=== PATIENT | male | born 1955 ===

== ENCOUNTER 2016-09-25 12:48 | Inpatient (IN) | payer MEDICAID, OTHER ==
[2016-09-25] MEDS ORDERED: Nitroglycerin 2% Ointment Foilpak UD TOP STA (12:57)
--- NOTE | 2016-09-25 13:04 | ED PDOC ---
Arrival/HPI - General Time Seen by Provider: 09/25/16 12:49 - History of Present Illness Narrative History of Present Illness (Text): 09/25/16 12:58 61yo male, states he has a hx of HTN but does not take any meds, presents with 2 week duration worsening sob and astudillo, states also feels intermittent palpitations. Denies cough. Denies f/c. States his symptoms accomp by generalized swelling. His reports pt appears very pale. Pt denies rectal bleeding or dark stool. States he drinks socially. Past Medical History - Provider Review Nursing Documentation Reviewed: Yes Family/Social History Family/Social History: Unknown Family HX Allergies/Home Meds Allergies/Adverse Reactions: Allergies No Known Allergies Allergy (Verified 09/25/16 12:54) Home Medications: Home Meds Medication Instructions Recorded Confirmed No Known Home Med 09/25/16 09/25/16 Physical Exam - Physical Exam Narrative Physical Exam (Text): 09/25/16 13:01 - Review of Systems Constitutional: Normal. absent: Fatigue, Weight Change, Fevers Eyes: Normal ENT: denies sore throat, denies tristhmus Respiratory: ASTUDILLO absent: Cough, Sputum Cardiovascular: anasarca, palpitations absent: Chest Pain, Syncope Gastrointestinal: Normal. absent: Abdominal Pain, Diarrhea, Nausea, Vomiting Genitourinary: Normal. absent: Dysuria, Frequency, Hematuria Musculoskeletal: Normal. absent: Arthralgias, Back Pain, Neck Pain Skin: pale appearance no rashes, no erythema Neurological: absent: Focal Weakness Endocrine: Normal Hemo/Lymphatic: Normal Psychiatric: No suicidal or homicidal ideations Physical exam Patient appears age appropriate in no distress, speaking full sentences without difficulty - Systems Exam Head: Present: Atraumatic, Normocephalic Pupils: Present: PERRL Extroacular Muscles: Present: EOMI Conjunctiva: Present: Normal Mouth: Present: Moist Mucous Membranes Neck: Present: Normal Range of Motion. No: MIDLINE TENDERNESS, Paraspinal Tenderness Respiratory/Chest: Present: Clear to Auscultation, Good Air Exchange. No: Respiratory Distress, Accessory Muscle Use, Tachypneic Cardiovascular: Present: pitting edema, tachycardic, murmur, Normal S1, S2, Peripheal Pulses Present. Abdomen: Present: Normal Bowel Sounds. No: Tenderness, Distention, Peritoneal Signs, Rebound, Guarding Rectal: Good rectal tone. External hemorrhoids. Guaiac positive. Female housing coordinator (Scribe - Viveros) present. Back: Present: Normal Inspection. No: Midline Tenderness, Paraspinal Tenderness Upper Extremity: Present: Normal Inspection. No: Cyanosis, Edema Lower Extremity: Present: edematous Neurological: Present: GCS=15, Speech Normal, cranial nerves II through XII fully intact with no cerebellar abnormality, neurosensory fully intact. No focal neurological deficits. Skin: Present: Warm, Dry, pale. No: Rashes Lymphatic: Present: OX3, NI, NC Psychiatric: Present: Alert, Oriented x 3, Normal Insight, Normal Concentration Vital Signs Pulse Resp BP Pulse Ox 09/25/16 13:52 172/91 H 09/25/16 13:35 83 18 179/98 H 100 09/25/16 13:09 91 H 17 178/99 H 100 09/25/16 13:03 224/113 H Blood Pressure: Hypertensive Pulse: Tachycardic Respiratory Rate: Normal Pain Distress: None Mental Status: Positive for: Alert and Oriented X 3 Medical Decision Making ED Course and Treatment: 09/25/16 13:04 61yo male, hx of HTN not on any meds, with 2 weeks duration worsening ASTUDILLO and palpitations. On exam pt is pale, tachy, edematous. In no resp distress. EKG shows sinus tach 111 bpm, PVC, lateral ST-depressions. Interpreted by me. differential includes but not limited to: anemia, CHF, demand ischemia, PNA BP in the 200s lasix and ntg ordered asa held due to possibility of anemia, will wait for Hb 09/25/16 14:13 Hb 4 consent for PRBCs signed pt aware of plan dw Dr. Calabrese, states will evaluate pt CXR shows mild vasc. congestion as read by the radiologist 09/25/16 14:24 stool guaiac positive, chaperoned by Dimple scribe. Good rectal tone. External non-tender hemorrhoids. 09/25/16 14:[address] Calabrese, accepted to the MICU pt states he has no PMD will admit to hospitalist service - Critical Care Critical Care Minutes: 30 minutes - Lab Interpretations Lab Results: 09/25/16 12:58 09/25/16 12:58 Lab Results 09/25/16 13:50: Urine Color Yellow, Urine Appearance Cloudy, Urine pH 6.0, Ur Specific [place] 1.015, Urine Protein Trace H, Urine Glucose (UA) Negative, Urine Ketones Negative, Urine Blood Negative, Urine Nitrate Positive H, Urine Bilirubin Negative, Urine Urobilinogen 0.2, Ur Leukocyte Esterase Small H, Urine RBC 0 - 2, Urine WBC 2 - 5, Ur Epithelial Cells 0 - 2, Urine Bacteria Many 09/25/16 12:58: PT 12.4 H, INR 1.15 H, APTT 24.2 09/25/16 12:58: WBC 9.5, RBC 2.26 L, Hgb 4.1 L*, Hct 15.8 L*, MCV 69.9 L, MCH 18.1 L, MCHC 25.9 L, RDW 21.3 H, Plt Count 297, MPV 10.8, Gran % 72.2 H, Lymph % (Auto) 16.6 L, [place] % (Auto) 9.9 H, Eos % (Auto) 0.8 L, Baso % (Auto) 0.5, Gran # 6.84 H, Lymph # 1.6, [place] # 0.9 H, Eos # 0.1, Baso # 0.05 09/25/16 12:58: Blood Type A POSITIVE, Antibody Screen Negative, Crossmatch See Detail, BBK History Checked No verified bt 09/25/16 12:58: TIBC 531 H 09/25/16 12:58: Sodium 141, Potassium 4.4, Chloride 108 H, Carbon Dioxide 20 L, Anion Gap 17, BUN 14, Creatinine 1.2, Est GFR ( Amer) > 60, Est GFR (Non- Af Amer) > 60, Random Glucose 115 H, Calcium 9.1, Ferritin Pending, Total Bilirubin 0.6, AST 39, ALT 66 H, Alkaline Phosphatase 196 H, Lactate Dehydrogenase 493, Total Creatine Kinase 98, Troponin I < 0.01, NT-Pro-B Natriuret Pep 2820 H, Total Protein 7.1, Albumin 4.2, Globulin 2.9, Albumin/ Globulin Ratio 1.4, Lipase 97 - RAD Interpretation Radiology Orders: 09/25/16 12:57 CHEST PORTABLE [RAD] Stat 09/25/16 14:31 ABD & PELVIS W/O PO OR IV CONT [CT] Stat - Medication Orders Current Medication Orders: Discontinued Medications Furosemide (Lasix) 40 mg IVP STAT STA Stop: 09/25/16 12:58 Last Admin: 09/25/16 13:03 Dose: 40 mg Nitroglycerin (Nitro-Bid 2% Oint) 1 ea TOP STAT STA Stop: 09/25/16 12:58 Last Admin: 09/25/16 13:03 Dose: 1 ea Pantoprazole Sodium (Protonix Inj) 40 mg IVP STAT STA Stop: 09/25/16 14:26 Last Admin: 09/25/16 14:34 Dose: 40 mg Disposition/Present on Arrival - Present on Arrival Any Indicators Present on Arrival: No - Disposition Have Diagnosis and Disposition been Completed?: Yes Diagnosis: Anemia Disposition: HOSPITALIZED Disposition Time: 14:16 Patient Plan: Admission Patient Problems: Current Active Problems Problem Status Onset Anemia Acute Condition: FAIR Referrals: PCP,NO [Primary Care Provider] - Follow up with primary
[2016-09-25 13:24] LABS: INR 1.15 (0.93-1.08); PARTIAL THROMBOPLASTIN TIME 24.2 Seconds (23.7-30.8); PROTHROMBIN TIME 12.4 Seconds (9.9-11.8)
[2016-09-25 13:26] LABS: ALB/GLOB RATIO 1.4 (1.1-1.8); ALBUMIN 4.2 g/dL (3.0-4.8); ALT/SGPT 66 U/L (7-56); AST/SGOT 39 U/L (15-59); BLOOD UREA NITROGEN 14 mg/dL (7-21); CALCIUM 9.1 mg/dL (8.4-10.5); GFR AFRICAN-AMERICAN > 60; GFR NON-AFRICAN AMERICAN > 60; LIPASE 97 U/L (23-300)
--- NOTE | 2016-09-25 13:35 | RAD ---
HISTORY: cough COMPARISON: No prior. FINDINGS: LUNGS: No active pulmonary disease. Mild vascular congestion PLEURA: No significant pleural effusion identified, no pneumothorax apparent. CARDIOVASCULAR: Normal. OSSEOUS STRUCTURES: No significant abnormalities. VISUALIZED UPPER ABDOMEN: Normal. OTHER FINDINGS: None. IMPRESSION: No active disease. Mild vascular congestion
[2016-09-25 13:37] LABS: B-TYPE NATRIURETIC PEPTIDE 2820 pg/mL (0-450)
[2016-09-25 13:39] LABS: TROPONIN I < 0.01 ng/mL
[2016-09-25 13:40] LABS: BASO # 0.05 K/mm3 (0.0-2.0); BASO % 0.5 % (0.0-3.0); EOS # 0.1 (0.0-0.7); EOS % 0.8 % (1.5-5.0); GRAN # 6.84 (1.4-6.5); GRAN % 72.2 % (50.0-68.0); LYMPH # 1.6 (1.2-3.4); LYMPH % 16.6 % (22.0-35.0); MEAN CELL VOLUME 69.9 fL (80.0-105.0); MEAN CORPUSCULAR HEMOGLOBIN 18.1 pg (25.0-35.0); MEAN CORPUSCULAR HGB CONC 25.9 g/dl (31.0-37.0); MEAN PLATELET VOLUME 10.8 fl (7.0-11.0); MONO # 0.9 (0.1-0.6); MONO % 9.9 % (1.0-6.0); PLATELET COUNT 297 10^3/uL (120.0-450.0); RBC 2.26 10^6/uL (3.5-6.1); RED CELL DISTRIBUTION WIDTH 21.3 % (11.5-14.5); WHITE BLOOD COUNT 9.5 10^3/ul (4.5-11.0)
[2016-09-25 13:50] LABS: HEMOGLOBIN 4.1 gm/dL (14.0-18.0)
[2016-09-25 14:11] LABS: URINE BILIRUBIN NEGATIVE (NEGATIVE); URINE BLOOD NEGATIVE (NEGATIVE); URINE GLUCOSE (UA) NEGATIVE (NEGATIVE); URINE LEUKOCYTE ESTERASE SMALL Leu/uL (NEGATIVE); URINE NITRATE POSITIVE (NEGATIVE); URINE PROTEIN TRACE mg/dL (<30 mg/dL); URINE UROBILINOGEN 0.2 E.U./dL (<1 E.U./dL)
[2016-09-25 14:12] LABS: URINE COLOR YELLOW (YELLOW)
[2016-09-25 14:13] LABS: URINE APPEARANCE CLOUDY (CLEAR)
[2016-09-25 14:19] LABS: URINE RBC 0 - 2 /hpf (0-2)
[2016-09-25 14:20] LABS: URINE BACTERIA MANY (NEG); URINE EPITHELIAL CELLS 0 - 2 /hpf (0-5)
--- NOTE | 2016-09-25 15:06 | CP.PCM.CON ---
History of Present Illness - History of Present Illness History of Present Illness: 61 yo without significant PMH, who presented with gradually worsening SOB, initially on exertion and then at rest, associated with some chest tightness occasionally. Symptoms strarted 2 months ago, with exertion being only aggravating factor. No F/C/S, no melena, no change in stool colour, no hematemesis, no BRBPR. Patient was taking naproxen on and off for non specific pain Review of Systems - Constitutional Constitutional: As Per HPI - EENT Eyes: As Per HPI Nose/Mouth/Throat: As Per HPI - Cardiovascular Cardiovascular: As Per HPI - Respiratory Respiratory: Dyspnea on Exertion - Gastrointestinal Additional comments: no pain, no organomegaly - Musculoskeletal Additional comments: 2+b/l pedal edema - Integumentary Integumentary: As Per HPI, Rash Additional comments: low extremities, pustules - Neurological Additional comments: moves all extremities spontaneously - Psychiatric Additional comments: alert and oriented x 3, not in distress Past Patient History - Infectious Disease Hx of Infectious Diseases: None - Past Medical History & Family History Past Medical History?: No - Past Social History Smoking Status: Current Some Days Smoker Alcohol: > 2 Drinks/Day Drugs: Denies - CARDIAC Hx Cardiac Disorders: No - PULMONARY Hx Respiratory Disorders: No - NEUROLOGICAL Hx Neurological Disorder: No - HEENT Hx HEENT Problems: No - RENAL Hx Chronic Kidney Disease: No - ENDOCRINE/METABOLIC Hx Endocrine Disorders: No - HEMATOLOGICAL/ONCOLOGICAL Hx Blood Disorders: No - INTEGUMENTARY Hx Dermatological Problems: No - MUSCULOSKELETAL/RHEUMATOLOGICAL Hx Falls: No - GASTROINTESTINAL Hx Gastrointestinal Disorders: No - GENITOURINARY/GYNECOLOGICAL Hx Genitourinary Disorders: No - PSYCHIATRIC Hx Psychophysiologic Disorder: No Hx Substance Use: No - SURGICAL HISTORY Hx Surgeries: No Meds Allergies/Adverse Reactions: Allergies Allergy/AdvReac Type Severity Reaction Status Date / Time No Known Allergies Allergy Verified 09/25/16 12:54 - Medications Medications: NSAIDS prn Physical Exam - Constitutional Appears: Non-toxic - Head Exam Head Exam: ATRAUMATIC, NORMOCEPHALIC - Eye Exam Eye Exam: EOMI, Normal appearance - ENT Exam ENT Exam: Mucous Membranes Dry - Respiratory Exam Respiratory Exam: Clear to Auscultation Bilateral, NORMAL BREATHING PATTERN - Cardiovascular Exam Cardiovascular Exam: REGULAR RHYTHM, +S1, +S2 - GI/Abdominal Exam Additional comments: soft non tender and non-distended - Extremities Exam Additional comments: 2+ b/l pedal edema - Neurological Exam Neurological exam: Alert, Oriented x3 - Psychiatric Exam Psychiatric exam: Normal Mood Results - Vital Signs Recent Vital Signs: Last Vital Signs Temp Pulse 83 09/25/16 13:35 Resp 18 09/25/16 13:35 BP 172/91 H 09/25/16 13:52 Pulse Ox 100 09/25/16 13:35 - Labs Result Diagrams: 09/25/16 12:58 09/25/16 12:58 Labs: Laboratory Results - last 24 hr 09/25/16 09/25/16 09/25/16 12:58 12:58 12:58 WBC RBC Hgb Hct MCV MCH MCHC RDW Plt Count MPV Gran % Lymph % (Auto) [place] % (Auto) Eos % (Auto) Baso % (Auto) Gran # Lymph # [place] # Eos # Baso # PT INR APTT Sodium 141 Potassium 4.4 Chloride 108 H Carbon Dioxide 20 L Anion Gap 17 BUN 14 Creatinine 1.2 Est GFR ( Amer) > 60 Est GFR (Non-Af Amer) > 60 Random Glucose 115 H Calcium 9.1 TIBC 531 H Total Bilirubin 0.6 AST 39 ALT 66 H Alkaline Phosphatase 196 H Lactate Dehydrogenase 493 Total Creatine Kinase 98 Troponin I < 0.01 NT-Pro-B Natriuret Pep 2820 H Total Protein 7.1 Albumin 4.2 Globulin 2.9 Albumin/Globulin Ratio 1.4 Lipase 97 Urine Color Urine Appearance Urine pH Ur Specific [place] Urine Protein Urine Glucose (UA) Urine Ketones Urine Blood Urine Nitrate Urine Bilirubin Urine Urobilinogen Ur Leukocyte Esterase Urine RBC Urine WBC Ur Epithelial Cells Urine Bacteria Blood Type A POSITIVE Antibody Screen Negative Crossmatch See Detail BBK History Checked No verified bt 09/25/16 09/25/16 09/25/16 12:58 12:58 13:50 WBC 9.5 RBC 2.26 L Hgb 4.1 L* Hct 15.8 L* MCV 69.9 L MCH 18.1 L MCHC 25.9 L RDW 21.3 H Plt Count 297 MPV 10.8 Gran % 72.2 H Lymph % (Auto) 16.6 L [place] % (Auto) 9.9 H Eos % (Auto) 0.8 L Baso % (Auto) 0.5 Gran # 6.84 H Lymph # 1.6 [place] # 0.9 H Eos # 0.1 Baso # 0.05 PT 12.4 H INR 1.15 H APTT 24.2 Sodium Potassium Chloride Carbon Dioxide Anion Gap BUN Creatinine Est GFR ( Amer) Est GFR (Non-Af Amer) Random Glucose Calcium TIBC Total Bilirubin AST ALT Alkaline Phosphatase Lactate Dehydrogenase Total Creatine Kinase Troponin I NT-Pro-B Natriuret Pep Total Protein Albumin Globulin Albumin/Globulin Ratio Lipase Urine Color Yellow Urine Appearance Cloudy Urine pH 6.0 Ur Specific [place] 1.015 Urine Protein Trace H Urine Glucose (UA) Negative Urine Ketones Negative Urine Blood Negative Urine Nitrate Positive H Urine Bilirubin Negative Urine Urobilinogen 0.2 Ur Leukocyte Esterase Small H Urine RBC 0 - 2 Urine WBC 2 - 5 Ur Epithelial Cells 0 - 2 Urine Bacteria Many Blood Type Antibody Screen Crossmatch BBK History Checked Assessment & Plan - Assessment and Plan (Free Text) Assessment: 61 yo male without significant PMH, who presented with severe and symptomatic anemia with some end organ dysfunction, including cardiac ischemia and nataly in the setting of guiac positive stool. Differential diagnosis includes blood loss- intra and extraluminal, increased turn over of RBCs and decreased production. Blood loss due to GI sources are on top of differential. Will proceed with CT abdomen and pelvis, GI consult to consider colonoscopy. Will transfuse 4 PRBCs, serial CBC, NPO, Protonix drip. Will get echo, trend troponin, will get cardio consult. Will re-assess ASTUDILLO and chest tightness after Hb comes up. Will admit to ICU. No stigmata of chronic hepatic disease. ccm time 40 min
[2016-09-25] MEDS ORDERED: Sodium Chloride 0.9% 1,000 ML IV SCH (15:15)
--- NOTE | 2016-09-25 15:28 | CT ---
PROCEDURE: CT Abdomen and Pelvis without intravenous contrast HISTORY: rectal bleeding COMPARISON: None. TECHNIQUE: Without contrast.. Contrast Dose: Radiation dose: Total exam DLP = 635 mGy-cm. This CT exam was performed using one or more of the following dose reduction techniques: Automated exposure control, adjustment of the mA and/or kV according to patient size, and/or use of iterative reconstruction technique. FINDINGS: LOWER THORAX: Unremarkable. LIVER: Unremarkable. No gross lesion or ductal dilatation. GALLBLADDER AND BILE DUCTS: Unremarkable. PANCREAS: Unremarkable. No gross lesion or ductal dilatation. SPLEEN: Unremarkable. ADRENALS: Unremarkable. No mass. KIDNEYS AND URETERS: Mild hydronephrosis VASCULATURE: Unremarkable. No aortic aneurysm. BOWEL: Unremarkable. No obstruction. No gross mural thickening. APPENDIX: Unremarkable. Normal appendix. PERITONEUM: Unremarkable. No free fluid. No free air. LYMPH NODES: Unremarkable. No enlarged lymph nodes. BLADDER: There is severe distention of the urinary bladder REPRODUCTIVE: The prostate is enlarged and lobulated BONES: No acute fracture. OTHER FINDINGS: None. IMPRESSION: Enlarged prostate and severely distended urinary bladder.
[2016-09-25] MEDS: Pantoprazole 40mg/100ml IVPB 40 MG/100 ML BAG IVPB SCH ×2 (15:48→20:11)
[2016-09-25 17:32] VITALS: BMI 31.6
--- NOTE | 2016-09-25 17:33 | CP.PCM.HP ---
History of Present Illness - History of Present Illness History of Present Illness: [Patient is a 61 year old male with a reported PMH of Hypertension and Anemia Past Patient History - Infectious Disease Hx of Infectious Diseases: None - Past Medical History & Family History Past Medical History?: No - Past Social History Smoking Status: Current Some Days Smoker - CARDIAC Hx Cardiac Disorders: No - PULMONARY Hx Respiratory Disorders: No - NEUROLOGICAL Hx Neurological Disorder: No - HEENT Hx HEENT Problems: No - RENAL Hx Chronic Kidney Disease: No - ENDOCRINE/METABOLIC Hx Endocrine Disorders: No - HEMATOLOGICAL/ONCOLOGICAL Hx Blood Disorders: No - INTEGUMENTARY Hx Dermatological Problems: No - MUSCULOSKELETAL/RHEUMATOLOGICAL Hx Falls: No - GASTROINTESTINAL Hx Gastrointestinal Disorders: No - GENITOURINARY/GYNECOLOGICAL Hx Genitourinary Disorders: No - PSYCHIATRIC Hx Substance Use: No - SURGICAL HISTORY Hx Surgeries: No Meds Allergies/Adverse Reactions: Allergies Allergy/AdvReac Type Severity Reaction Status Date / Time No Known Allergies Allergy Verified 09/25/16 12:54 Results - Vital Signs Recent Vital Signs: Last Vital Signs Temp 99.0 F 09/25/16 17:03 Pulse 90 09/25/16 17:03 Resp 20 09/25/16 17:03 BP 185/93 H 09/25/16 17:03 Pulse Ox 100 09/25/16 15:06 - Labs Result Diagrams: 09/25/16 12:58 09/25/16 12:58
--- NOTE | 2016-09-25 17:35 | CARD ---
APPROVED REPORT EKG Measurement Heart [id number] <Conclusion> Sinus tachycardia with occasional premature ventricular complexes Possible Left atrial enlargement ST & T wave abnormality, consider anterolateral ischemia Abnormal ECG
[2016-09-25] MEDS: cefTRIAXone 1 gm 1 GM/100 ML BAG IVPB SCH (17:48)
[2016-09-25 18:50] LABS: FERRITIN 6.6 ng/mL
[2016-09-25 19:12] LABS: BARBITURATES, UR NEGATIVE (NEGATIVE); BENZODIAZEPINES, UR NEGATIVE (NEGATIVE); OPIATES, UR NEGATIVE (NEGATIVE); PHENCYCLIDINE, UR NEGATIVE (NEGATIVE)
[2016-09-25] MEDS: Metoprolol 1 mg/ml Inj IVP PRN (20:06)
[2016-09-25 20:35] LABS: VENOUS BLOOD GAS PO2 152 mm/Hg (30-55); VENOUS BLOOD PH 7.46 (7.32-7.43)
[2016-09-25 20:47] LABS: BASO # 0.04 K/mm3 (0.0-2.0); BASO % 0.5 % (0.0-3.0); EOS # 0.1 (0.0-0.7); GRAN # 5.68 (1.4-6.5); GRAN % 71.9 % (50.0-68.0); LYMPH # 1.2 (1.2-3.4); LYMPH % 14.5 % (22.0-35.0); MEAN CELL VOLUME 72.4 fL (80.0-105.0); MEAN CORPUSCULAR HEMOGLOBIN 20.7 pg (25.0-35.0); MEAN CORPUSCULAR HGB CONC 28.6 g/dl (31.0-37.0); MEAN PLATELET VOLUME 10.4 fl (7.0-11.0); MONO % 12.1 % (1.0-6.0); PLATELET COUNT 209 10^3/uL (120.0-450.0); RBC 2.75 10^6/uL (3.5-6.1); RED CELL DISTRIBUTION WIDTH 20.1 % (11.5-14.5); WHITE BLOOD COUNT 7.9 10^3/ul (4.5-11.0)
[2016-09-25 20:49] LABS: HEMOGLOBIN 5.7 gm/dL (14.0-18.0)
[2016-09-25 20:52] LABS: % IRON SATURATION 9 % (20-55); IRON 46 ug/dL (45-180); TOTAL IRON BINDING CAPACITY 496 ug/dL (261-462)
[2016-09-25 21:12] LABS: TROPONIN I 0.02 ng/mL
--- NOTE | 2016-09-25 21:13 | CP.PCM.HP ---
<Ramila Mendoza - Last Filed: 09/25/16 21:33> History of Present Illness - History of Present Illness History of Present Illness: Patient is a 61 year old male with a reported PMHx of HTN, Anemia, medical non- compliance and inc. urinary frequency who reported to the ED complaining of fatigue, SOB, and dyspnea on exertion. Patient stated that his symptoms began about a month ago and has been gradually getting worse. He states that he is no longer able to walk to work due to his symptoms. Patient Denies any headache , dizziness, lightheadedness, nausea, vomiting, diarrhea, constipation, or change in stool color. PMHx: HTN, Anemia PSHx: Denies Allergeis: NKDA Social Hx: a pack a day since childhoold, admits to drinking a beer a day. Fam Hx: Denies Medications: Ibuprofen PRN for generalized pain. Present on Admission - Present on Admission Any Indicators Present on Admission: No Review of Systems - Review of Systems All systems: reviewed and no additional remarkable complaints except - Cardiovascular Cardiovascular: Dyspnea, Dyspnea on Exertion - Genitourinary Genitourinary: Urinary Frequency, Urinary Urgency Past Patient History - Infectious Disease Hx of Infectious Diseases: None - Past Medical History & Family History Past Medical History?: No - Past Social History Smoking Status: Current Some Days Smoker - CARDIAC Hx Hypertension: Yes - PULMONARY Hx Respiratory Disorders: No - NEUROLOGICAL Hx Neurological Disorder: No - HEENT Hx HEENT Problems: No - RENAL Hx Chronic Kidney Disease: No - ENDOCRINE/METABOLIC Hx Endocrine Disorders: No - HEMATOLOGICAL/ONCOLOGICAL Hx Blood Disorders: No - INTEGUMENTARY Hx Dermatological Problems: Yes Other/Comment: pt has multiple round brown spots on both lower legs. pt states they are a result of childhood illness. no broken or draining areas - MUSCULOSKELETAL/RHEUMATOLOGICAL Hx Musculoskeletal Disorders: No Hx Falls: No - GASTROINTESTINAL Hx Gastrointestinal Disorders: No - GENITOURINARY/GYNECOLOGICAL Hx Genitourinary Disorders: No - PSYCHIATRIC Hx Psychophysiologic Disorder: No Hx Substance Use: No - SURGICAL HISTORY Hx Surgeries: No Meds Allergies/Adverse Reactions: Allergies Allergy/AdvReac Type Severity Reaction Status Date / Time No Known Allergies Allergy Verified 09/25/16 12:54 Physical Exam - Constitutional Appears: Non-toxic, No Acute Distress - Head Exam Head Exam: ATRAUMATIC, NORMOCEPHALIC - Neck Exam Neck exam: Negative for: Lymphadenopathy - Respiratory Exam Respiratory Exam: Clear to Auscultation Bilateral. absent: Accessory Muscle Use , Rales, Rhonchi, Wheezes, Stridor - Cardiovascular Exam Cardiovascular Exam: REGULAR RHYTHM, +S1, +S2. absent: JVD - GI/Abdominal Exam GI & Abdominal Exam: Normal Bowel Sounds, Soft. absent: Distended, Tenderness - Neurological Exam Neurological exam: Alert, Oriented x3 - Skin Skin Exam: Pallor Results - Vital Signs Recent Vital Signs: Last Vital Signs Temp 98.5 F 09/25/16 20:50 Pulse 69 09/25/16 20:52 Resp 12 09/25/16 20:52 BP 188/93 H 09/25/16 20:52 Pulse Ox 100 09/25/16 20:52 - Labs Result Diagrams: 09/25/16 20:15 09/25/16 12:58 Labs: Laboratory Results - last 24 hr 09/25/16 09/25/16 09/25/16 18:29 20:15 20:15 WBC 7.9 RBC 2.75 L Hgb 5.7 L* D Hct 19.9 L* MCV 72.4 L MCH 20.7 L MCHC 28.6 L RDW 20.1 H Plt Count 209 MPV 10.4 Gran % 71.9 H Lymph % (Auto) 14.5 L Dewey % (Auto) 12.1 H Eos % (Auto) 1.0 L Baso % (Auto) 0.5 Gran # 5.68 Lymph # 1.2 Dewey # 1.0 H Eos # 0.1 Baso # 0.04 pO2 VBG pH VBG pCO2 VBG HCO3 VBG Total CO2 VBG O2 Sat (Calc) VBG Base Excess VBG Potassium Sodium Chloride Glucose Lactate FiO2 Iron TIBC % Saturation Triglycerides 102 Cholesterol 116 L HDL Cholesterol 17 L Venous Blood Potassium Urine Opiates Screen Negative Urine Methadone Screen Negative Ur Barbiturates Screen Negative Ur Phencyclidine Scrn Negative Ur Amphetamines Screen Negative U Benzodiazepines Scrn Negative U Oth Cocaine Metabols Negative U Cannabinoids Screen Negative 09/25/16 09/25/16 20:20 20:20 WBC RBC Hgb Hct MCV MCH MCHC RDW Plt Count MPV Gran % Lymph % (Auto) Dewey % (Auto) Eos % (Auto) Baso % (Auto) Gran # Lymph # Dewey # Eos # Baso # pO2 152 H VBG pH 7.46 H VBG pCO2 36.0 L VBG HCO3 25.6 VBG Total CO2 26.7 VBG O2 Sat (Calc) 99.8 H VBG Base Excess 2.0 VBG Potassium 4.5 Sodium 141.0 Chloride 113.0 H Glucose 94 Lactate 1.1 FiO2 21.0 Iron 46 TIBC 496 H % Saturation 9 L Triglycerides Cholesterol HDL Cholesterol Venous Blood Potassium 4.5 Urine Opiates Screen Urine Methadone Screen Ur Barbiturates Screen Ur Phencyclidine Scrn Ur Amphetamines Screen U Benzodiazepines Scrn U Oth Cocaine Metabols U Cannabinoids Screen Assessment & Plan - Assessment and Plan (Free Text) Assessment: This is a 61 year old male with a reported PMHx of HTN, and Anemia who presented to the ED with symptomatic anemia, ischemic changes on EKG, Guiac positive stool, systolic pressure > 200, and positive UA. CT (Abd/Pelvis) showed enlarged prostate and severely distended bladder. Plan: 1, Microcytic Anemia (Symptomatic - Acute) -Iron, TIBC, Ferritin, CBC w/diff and B12 ordered -Hgb 4.0 on admission. 2 Units of PRBC ordered. -GI Consult (Guiac + Stool) -Monitor Hgb 2. UTI (Acute) -CT shows enlarged prostate with severely distended Bladder. UA were positive for nitrates, and Luek esterase -Urine Cultures ordered -Ceftriaxone 3. Elevated Blood Pressure -Metoprolol 5mg IVpush Q6 -Hold Lasix (B/L leg edema and elevated BNP) 4. Ischemic Changes on EKG -EKG showed sinus tach with occasional PVCs. Possible left Atrial Enlargement and ST and T wave abnormalities. No prior EKG for comparison -Order Echo - Cardio Consult 5. Elevated BNP (2820). Chest X-ray showed Mild Vascular Congestion -cardio consulted -Echo Ordered -Cont. Lasix tomorrow pending HgB and need p 6. Elevated Liver Enzymes -Lipid Panel -Hepatitis panel 7.Chronic Non-healing Ulcers -GANESH -HBA1C -HIV 1 and 2 antibody screen -TSH 8. GI proph -protonix - Date & Time Date: 09/25/16 Time: 21:21 <Della Antonio - Last Filed: 09/26/16 17:27> Results - Vital Signs Recent Vital Signs: Last Vital Signs Temp 98.4 F 09/26/16 12:00 Pulse 66 09/26/16 13:06 Resp 22 09/26/16 12:00 BP 187/95 H 09/26/16 13:06 Pulse Ox 98 09/26/16 12:00 - Labs Result Diagrams: 09/26/16 11:45 09/26/16 07:00 Labs: Laboratory Results - last 24 hr 09/25/16 09/25/16 09/25/16 18:29 20:15 20:15 WBC 7.9 RBC 2.75 L Hgb 5.7 L* D Hct 19.9 L* MCV 72.4 L MCH 20.7 L MCHC 28.6 L RDW 20.1 H Plt Count 209 MPV 10.4 Gran % 71.9 H Lymph % (Auto) 14.5 L Dewey % (Auto) 12.1 H Eos % (Auto) 1.0 L Baso % (Auto) 0.5 Gran # 5.68 Lymph # 1.2 Dewey # 1.0 H Eos # 0.1 Baso # 0.04 PT INR pO2 VBG pH VBG pCO2 VBG HCO3 VBG Total CO2 VBG O2 Sat (Calc) VBG Base Excess VBG Potassium Sodium Chloride Glucose Lactate FiO2 Potassium Carbon Dioxide Anion Gap BUN Creatinine Est GFR ( Amer) Est GFR (Non-Af Amer) Random Glucose Hemoglobin A1c Calcium Iron TIBC % Saturation Ferritin Total Bilirubin Direct Bilirubin AST ALT Alkaline Phosphatase Troponin I Total Protein Albumin Globulin Albumin/Globulin Ratio Triglycerides Cholesterol LDL Cholesterol Direct HDL Cholesterol Prostate Specific Ag Vitamin B12 TSH 3rd Generation Venous Blood Potassium Urine Opiates Screen Negative Urine Methadone Screen Negative Ur Barbiturates Screen Negative Ur Phencyclidine Scrn Negative Ur Amphetamines Screen Negative U Benzodiazepines Scrn Negative U Oth Cocaine Metabols Negative U Cannabinoids Screen Negative Hepatitis A IgM Ab Negative Hep Bs Antigen Negative Hep B Core IgM Ab Negative Hepatitis C Antibody Negative HIV 1&2 Antibody Screen 09/25/16 09/25/16 09/25/16 20:15 20:15 20:15 WBC RBC Hgb Hct MCV MCH MCHC RDW Plt Count MPV Gran % Lymph % (Auto) Dewey % (Auto) Eos % (Auto) Baso % (Auto) Gran # Lymph # Dewey # Eos # Baso # PT INR pO2 VBG pH VBG pCO2 VBG HCO3 VBG Total CO2 VBG O2 Sat (Calc) VBG Base Excess VBG Potassium Sodium Chloride Glucose Lactate FiO2 Potassium Carbon Dioxide Anion Gap BUN Creatinine Est GFR ( Amer) Est GFR (Non-Af Amer) Random Glucose Hemoglobin A1c 6.0 Calcium Iron TIBC % Saturation Ferritin 6.6 Total Bilirubin Direct Bilirubin AST ALT Alkaline Phosphatase Troponin I 0.02 D Total Protein Albumin Globulin Albumin/Globulin Ratio Triglycerides 102 Cholesterol 116 L LDL Cholesterol Direct 84 HDL Cholesterol 17 L Prostate Specific Ag Vitamin B12 535 TSH 3rd Generation 1.52 Venous Blood Potassium Urine Opiates Screen Urine Methadone Screen Ur Barbiturates Screen Ur Phencyclidine Scrn Ur Amphetamines Screen U Benzodiazepines Scrn U Oth Cocaine Metabols U Cannabinoids Screen Hepatitis A IgM Ab Hep Bs Antigen Hep B Core IgM Ab Hepatitis C Antibody HIV 1&2 Antibody Screen 09/25/16 09/25/16 09/25/16 20:15 20:20 20:20 WBC RBC Hgb Hct MCV MCH MCHC RDW Plt Count MPV Gran % Lymph % (Auto) Dewey % (Auto) Eos % (Auto) Baso % (Auto) Gran # Lymph # Dewey # Eos # Baso # PT INR pO2 152 H VBG pH 7.46 H VBG pCO2 36.0 L VBG HCO3 25.6 VBG Total CO2 26.7 VBG O2 Sat (Calc) 99.8 H VBG Base Excess 2.0 VBG Potassium 4.5 Sodium 141.0 Chloride 113.0 H Glucose 94 Lactate 1.1 FiO2 21.0 Potassium Carbon Dioxide Anion Gap BUN Creatinine Est GFR ( Amer) Est GFR (Non-Af Amer) Random Glucose Hemoglobin A1c Calcium Iron 46 TIBC 496 H % Saturation 9 L Ferritin Total Bilirubin Direct Bilirubin AST ALT Alkaline Phosphatase Troponin I Total Protein Albumin Globulin Albumin/Globulin Ratio Triglycerides Cholesterol LDL Cholesterol Direct HDL Cholesterol Prostate Specific Ag Vitamin B12 TSH 3rd Generation Venous Blood Potassium 4.5 Urine Opiates Screen Urine Methadone Screen Ur Barbiturates Screen Ur Phencyclidine Scrn Ur Amphetamines Screen U Benzodiazepines Scrn U Oth Cocaine Metabols U Cannabinoids Screen Hepatitis A IgM Ab Hep Bs Antigen Hep B Core IgM Ab Hepatitis C Antibody HIV 1&2 Antibody Screen Negative 09/26/16 09/26/16 09/26/16 03:19 03:19 07:00 WBC 8.8 8.8 RBC 3.67 4.17 Hgb 8.3 L 9.8 L Hct 27.5 L 31.9 L MCV 74.9 L 76.5 L MCH 22.6 L 23.5 L MCHC 30.2 L 30.7 L RDW 20.9 H 20.6 H Plt Count 207 212 MPV 10.4 10.9 Gran % 74.5 H 79.0 H Lymph % (Auto) 12.6 L 10.9 L Dewey % (Auto) 10.9 H 8.5 H Eos % (Auto) 1.5 1.3 L Baso % (Auto) 0.5 0.3 Gran # 6.56 H 6.92 H Lymph # 1.1 L 1.0 L Dewey # 1.0 H 0.7 H Eos # 0.1 0.1 Baso # 0.04 0.03 PT INR pO2 VBG pH VBG pCO2 VBG HCO3 VBG Total CO2 VBG O2 Sat (Calc) VBG Base Excess VBG Potassium Sodium Chloride Glucose Lactate FiO2 Potassium Carbon Dioxide Anion Gap BUN Creatinine Est GFR ( Amer) Est GFR (Non-Af Amer) Random Glucose Hemoglobin A1c Calcium Iron TIBC % Saturation Ferritin Total Bilirubin Direct Bilirubin AST ALT Alkaline Phosphatase Troponin I < 0.01 D Total Protein Albumin Globulin Albumin/Globulin Ratio Triglycerides Cholesterol LDL Cholesterol Direct HDL Cholesterol Prostate Specific Ag Vitamin B12 TSH 3rd Generation Venous Blood Potassium Urine Opiates Screen Urine Methadone Screen Ur Barbiturates Screen Ur Phencyclidine Scrn Ur Amphetamines Screen U Benzodiazepines Scrn U Oth Cocaine Metabols U Cannabinoids Screen Hepatitis A IgM Ab Hep Bs Antigen Hep B Core IgM Ab Hepatitis C Antibody HIV 1&2 Antibody Screen 09/26/16 09/26/16 09/26/16 07:00 07:00 07:30 WBC RBC Hgb Hct MCV MCH MCHC RDW Plt Count MPV Gran % Lymph % (Auto) Dewey % (Auto) Eos % (Auto) Baso % (Auto) Gran # Lymph # Dewey # Eos # Baso # PT 11.9 H INR 1.10 H pO2 VBG pH VBG pCO2 VBG HCO3 VBG Total CO2 VBG O2 Sat (Calc) VBG Base Excess VBG Potassium Sodium 145 Chloride 107 Glucose Lactate FiO2 Potassium 3.5 L Carbon Dioxide 26 Anion Gap 16 BUN 17 Creatinine 1.3 Est GFR ( Amer) > 60 Est GFR (Non-Af Amer) 56 Random Glucose 96 Hemoglobin A1c Calcium 9.5 Iron TIBC % Saturation Ferritin Total Bilirubin 1.7 H Direct Bilirubin 0.6 H AST 35 ALT 53 Alkaline Phosphatase 191 H Troponin I Total Protein 6.9 Albumin 4.0 Globulin 3.0 Albumin/Globulin Ratio 1.3 Triglycerides Cholesterol LDL Cholesterol Direct HDL Cholesterol Prostate Specific Ag Vitamin B12 TSH 3rd Generation Venous Blood Potassium Urine Opiates Screen Urine Methadone Screen Ur Barbiturates Screen Ur Phencyclidine Scrn Ur Amphetamines Screen U Benzodiazepines Scrn U Oth Cocaine Metabols U Cannabinoids Screen Hepatitis A IgM Ab Hep Bs Antigen Hep B Core IgM Ab Hepatitis C Antibody HIV 1&2 Antibody Screen 09/26/16 09/26/16 09/26/16 10:00 11:30 11:45 WBC 10.1 9.9 RBC 4.25 4.24 Hgb 10.1 L 10.1 L Hct 32.6 L 32.4 L MCV 76.7 L 76.4 L MCH 23.8 L 23.8 L MCHC 31.0 31.2 RDW 20.5 H 20.7 H Plt Count 223 231 MPV 11.3 H Gran % 76.5 H 75.9 H Lymph % (Auto) 11.6 L 11.2 L Dewey % (Auto) 10.4 H 11.4 H Eos % (Auto) 1.2 L 1.0 L Baso % (Auto) 0.3 0.5 Gran # 7.71 H 7.48 H Lymph # 1.2 1.1 L Dewey # 1.1 H 1.1 H Eos # 0.1 0.1 Baso # 0.03 0.05 PT INR pO2 VBG pH VBG pCO2 VBG HCO3 VBG Total CO2 VBG O2 Sat (Calc) VBG Base Excess VBG Potassium Sodium Chloride Glucose Lactate FiO2 Potassium Carbon Dioxide Anion Gap BUN Creatinine Est GFR ( Amer) Est GFR (Non-Af Amer) Random Glucose Hemoglobin A1c Calcium Iron TIBC % Saturation Ferritin Total Bilirubin Direct Bilirubin AST ALT Alkaline Phosphatase Troponin I Total Protein Albumin Globulin Albumin/Globulin Ratio Triglycerides Cholesterol LDL Cholesterol Direct HDL Cholesterol Prostate Specific Ag 1.7 Vitamin B12 TSH 3rd Generation Venous Blood Potassium Urine Opiates Screen Urine Methadone Screen Ur Barbiturates Screen Ur Phencyclidine Scrn Ur Amphetamines Screen U Benzodiazepines Scrn U Oth Cocaine Metabols U Cannabinoids Screen Hepatitis A IgM Ab Hep Bs Antigen Hep B Core IgM Ab Hepatitis C Antibody HIV 1&2 Antibody Screen Attending/Attestation - Attestation I have personally seen and examined this patient.: Yes I have fully participated in the care of the patient.: Yes I have reviewed all pertinent clinical information: Yes Notes (Text): I have seen and examined patient at bedside. Agree with the above note outlined by the resident with the following additions/ exceptions: Briefly this is 61 year old male with history of HTN, anemia, tobacco use who was admitted for dyspnea on exertion, orthopnea, LE swelling, palpitations, urinary frequency and generalized weakness and found to have symptomatic microcytic anemia. Hb was found to be 4. He will be admitted to ICU and will consult GI. No hematemesis, hemoptysis, hematochezia or hematuria reported. He drinks beer weekly and denies heavy alcohol drinking. He will get blood transfusion and will order lasix in between transfusion. He will be started on protonix. CT abdomen revealed enlarged prostate with severely distended bladder. Haddad will be placed. Will start rocephin for possible UTI. CXR showed venous congestion. EKG sgowed some ischemic changes. Will monitor serial troponins, ekg, echo and cardio consult. Will check hep panel. Patient has chronic LE ulcers. Will recommend outpatient work up. BP noted to be elevated. Will start antihypertensive medications. Upon discharge patient will follow up in [facility] [place] clinic. Dr Della Antonio
[2016-09-26] MEDS: Pantoprazole 40mg/100ml IVPB 40 MG/100 ML BAG IVPB SCH (02:13)
[2016-09-26 03:51] LABS: BASO # 0.04 K/mm3 (0.0-2.0); BASO % 0.5 % (0.0-3.0); EOS # 0.1 (0.0-0.7); EOS % 1.5 % (1.5-5.0); GRAN # 6.56 (1.4-6.5); GRAN % 74.5 % (50.0-68.0); HEMOGLOBIN 8.3 gm/dL (14.0-18.0); LYMPH # 1.1 (1.2-3.4); LYMPH % 12.6 % (22.0-35.0); MEAN CELL VOLUME 74.9 fL (80.0-105.0); MEAN CORPUSCULAR HEMOGLOBIN 22.6 pg (25.0-35.0); MEAN CORPUSCULAR HGB CONC 30.2 g/dl (31.0-37.0); MEAN PLATELET VOLUME 10.4 fl (7.0-11.0); MONO % 10.9 % (1.0-6.0); PLATELET COUNT 207 10^3/uL (120.0-450.0); RBC 3.67 10^6/uL (3.5-6.1); RED CELL DISTRIBUTION WIDTH 20.9 % (11.5-14.5); WHITE BLOOD COUNT 8.8 10^3/ul (4.5-11.0)
[2016-09-26] MEDS: Metoprolol 1 mg/ml Inj IVP PRN (06:44)
[2016-09-26 07:29] LABS: BASO # 0.03 K/mm3 (0.0-2.0); BASO % 0.3 % (0.0-3.0); EOS # 0.1 (0.0-0.7); EOS % 1.3 % (1.5-5.0); GRAN # 6.92 (1.4-6.5); HEMOGLOBIN 9.8 gm/dL (14.0-18.0); LYMPH % 10.9 % (22.0-35.0); MEAN CELL VOLUME 76.5 fL (80.0-105.0); MEAN CORPUSCULAR HEMOGLOBIN 23.5 pg (25.0-35.0); MEAN CORPUSCULAR HGB CONC 30.7 g/dl (31.0-37.0); MEAN PLATELET VOLUME 10.9 fl (7.0-11.0); MONO # 0.7 (0.1-0.6); MONO % 8.5 % (1.0-6.0); PLATELET COUNT 212 10^3/uL (120.0-450.0); RBC 4.17 10^6/uL (3.5-6.1); RED CELL DISTRIBUTION WIDTH 20.6 % (11.5-14.5); WHITE BLOOD COUNT 8.8 10^3/ul (4.5-11.0)
[2016-09-26 07:34] LABS: INR 1.1 (0.93-1.08); PROTHROMBIN TIME 11.9 Seconds (9.9-11.8)
[2016-09-26 07:38] LABS: ALB/GLOB RATIO 1.3 (1.1-1.8); ALT/SGPT 53 U/L (7-56); AST/SGOT 35 U/L (15-59); BLOOD UREA NITROGEN 17 mg/dL (7-21); CALCIUM 9.5 mg/dL (8.4-10.5); GFR AFRICAN-AMERICAN > 60; GFR NON-AFRICAN AMERICAN 56
[2016-09-26] MEDS ORDERED: Potassium Chloride 20 mEq/15 ml LIQ UD PO STA (07:58)
--- NOTE | 2016-09-26 08:28 | CP.PCM.CON ---
<Chelle Viveros - Last Filed: 09/26/16 12:12> History of Present Illness - History of Present Illness History of Present Illness: Ariel Bonner is a 61M w/ hx of HTN and anemia who [place] [facility] [place]/ complaints of [place]B. Pt states that his SOB was mostly exertional. Onset 3 weeks. Pt states that it has been worsening since onset. Denied any recent CP. Denies any coug. Upon futher eval in the ER, his hgb was found to be ~4. He w3as transfused with 5 units PRBCs and sent to ICU for closer monitoring. Pt is tamazight speaking, so a RN was used bedside for translation. Pt denies any BRBPR , melena, change in color of stool, or hematemesis. Pt denies any other sig source of sig overt blood loss. Pt states that he does take Advil 2-3 times a week, but only around 1-2 pills. He also takes ASA daily. Pt states that he his aware of his hx of anemia, but has had no medical work-up. Denies any hx of endoscopy and colonoscopy. Pt states that he occasionally has constipation. His ICU course has been uneventful. No reports on hydrodynamic instability or overt bleeding. s/p 5 units and repeat hgb is stable. PMHx: Anemia, HTN PSHx: denies Social Hx: fixes TVs and Radios, states that he drinks socially around 2-4 mini beers weekly, smokes 1/2 pack a day for 40+ years, denies nay recreational drug use Family hx: Reviewed fx, denies any hx of Ca in family including colon, couldn't elaborate any hx of immediate family Endoscopy hx: none Past Patient History - Infectious Disease Hx of Infectious Diseases: None - Past Medical History & Family History Past Medical History?: No - Past Social History Smoking Status: Current Some Days Smoker - CARDIAC Hx Hypertension: Yes - PULMONARY Hx Respiratory Disorders: No - NEUROLOGICAL Hx Neurological Disorder: No - HEENT Hx HEENT Problems: No - RENAL Hx Chronic Kidney Disease: No - ENDOCRINE/METABOLIC Hx Endocrine Disorders: No - HEMATOLOGICAL/ONCOLOGICAL Hx Blood Disorders: No - INTEGUMENTARY Hx Dermatological Problems: Yes Other/Comment: pt has multiple round brown spots on both lower legs. pt states they are a result of childhood illness. no broken or draining areas - MUSCULOSKELETAL/RHEUMATOLOGICAL Hx Musculoskeletal Disorders: No Hx Falls: No - GASTROINTESTINAL Hx Gastrointestinal Disorders: No - GENITOURINARY/GYNECOLOGICAL Hx Genitourinary Disorders: No - PSYCHIATRIC Hx Psychophysiologic Disorder: No Hx Substance Use: No - SURGICAL HISTORY Hx Surgeries: No Meds Allergies/Adverse Reactions: Allergies Allergy/AdvReac Type Severity Reaction Status Date / Time No Known Allergies Allergy Verified 09/25/16 12:54 - Medications Medications: Current Medications Pantoprazole Sodium (Protonix 40mg Ivpb) 40 mg in 100 mls @ 20 mls/hr IVPB .Q5H NAV Last Admin: 09/26/16 02:13 Dose: 20 mls/hr Ceftriaxone Sodium (Rocephin 1 Gram Ivpb) 1 gm in 100 mls @ 100 mls/hr IVPB DAILY NAV PRN Reason: Protocol Last Admin: 09/25/16 17:48 Dose: 100 mls/hr Metoprolol Tartrate (Lopressor) 5 mg IVP Q6H PRN PRN Reason: Systolic Blood Pressure Last Admin: 09/26/16 06:44 Dose: 5 mg Physical Exam - Constitutional Appears: Well, Non-toxic, No Acute Distress - Head Exam Head Exam: ATRAUMATIC, NORMAL INSPECTION, NORMOCEPHALIC - Eye Exam Eye Exam: EOMI, Normal appearance - ENT Exam ENT Exam: Mucous Membranes Moist, Normal Exam - Neck Exam Neck exam: Positive for: Normal Inspection - Respiratory Exam Respiratory Exam: Clear to Auscultation Bilateral - Cardiovascular Exam Cardiovascular Exam: REGULAR RHYTHM - GI/Abdominal Exam GI & Abdominal Exam: Normal Bowel Sounds, Soft. absent: Distended, Firm, Guarding, Organomegaly, Pulsatile Mass, Rebound, Tenderness Additional comments: ext hemorroids, enlarged prosate, no stool in vault, no melena - Rectal Exam Rectal Exam: NORMAL INSPECTION - Extremities Exam Additional comments: 2-3+ pitting edema, skin excoriations in LE B/L - Skin Skin Exam: Dry, Intact, Normal Color Results - Vital Signs Recent Vital Signs: Last Vital Signs Temp 98.4 F 09/26/16 05:30 Pulse 62 09/26/16 06:44 Resp 17 09/26/16 05:50 BP 195/89 H 09/26/16 06:44 Pulse Ox 100 09/26/16 05:50 - Labs Result Diagrams: 09/26/16 07:00 09/26/16 07:00 Labs: Laboratory Results - last 24 hr 09/25/16 09/25/16 09/25/16 18:29 20:15 20:15 WBC 7.9 RBC 2.75 L Hgb 5.7 L* D Hct 19.9 L* MCV 72.4 L MCH 20.7 L MCHC 28.6 L RDW 20.1 H Plt Count 209 MPV 10.4 Gran % 71.9 H Lymph % (Auto) 14.5 L Price % (Auto) 12.1 H Eos % (Auto) 1.0 L Baso % (Auto) 0.5 Gran # 5.68 Lymph # 1.2 Price # 1.0 H Eos # 0.1 Baso # 0.04 PT INR pO2 VBG pH VBG pCO2 VBG HCO3 VBG Total CO2 VBG O2 Sat (Calc) VBG Base Excess VBG Potassium Sodium Chloride Glucose Lactate FiO2 Potassium Carbon Dioxide Anion Gap BUN Creatinine Est GFR ( Amer) Est GFR (Non-Af Amer) Random Glucose Calcium Iron TIBC % Saturation Total Bilirubin AST ALT Alkaline Phosphatase Troponin I Total Protein Albumin Globulin Albumin/Globulin Ratio Triglycerides Cholesterol LDL Cholesterol Direct HDL Cholesterol TSH 3rd Generation 1.52 Venous Blood Potassium Urine Opiates Screen Negative Urine Methadone Screen Negative Ur Barbiturates Screen Negative Ur Phencyclidine Scrn Negative Ur Amphetamines Screen Negative U Benzodiazepines Scrn Negative U Oth Cocaine Metabols Negative U Cannabinoids Screen Negative 09/25/16 09/25/16 09/25/16 20:15 20:20 20:20 WBC RBC Hgb Hct MCV MCH MCHC RDW Plt Count MPV Gran % Lymph % (Auto) Price % (Auto) Eos % (Auto) Baso % (Auto) Gran # Lymph # Price # Eos # Baso # PT INR pO2 152 H VBG pH 7.46 H VBG pCO2 36.0 L VBG HCO3 25.6 VBG Total CO2 26.7 VBG O2 Sat (Calc) 99.8 H VBG Base Excess 2.0 VBG Potassium 4.5 Sodium 141.0 Chloride 113.0 H Glucose 94 Lactate 1.1 FiO2 21.0 Potassium Carbon Dioxide Anion Gap BUN Creatinine Est GFR ( Amer) Est GFR (Non-Af Amer) Random Glucose Calcium Iron 46 TIBC 496 H % Saturation 9 L Total Bilirubin AST ALT Alkaline Phosphatase Troponin I 0.02 D Total Protein Albumin Globulin Albumin/Globulin Ratio Triglycerides 102 Cholesterol 116 L LDL Cholesterol Direct 84 HDL Cholesterol 17 L TSH 3rd Generation Venous Blood Potassium 4.5 Urine Opiates Screen Urine Methadone Screen Ur Barbiturates Screen Ur Phencyclidine Scrn Ur Amphetamines Screen U Benzodiazepines Scrn U Oth Cocaine Metabols U Cannabinoids Screen 09/26/16 09/26/16 09/26/16 03:19 03:19 07:00 WBC 8.8 8.8 RBC 3.67 4.17 Hgb 8.3 L 9.8 L Hct 27.5 L 31.9 L MCV 74.9 L 76.5 L MCH 22.6 L 23.5 L MCHC 30.2 L 30.7 L RDW 20.9 H 20.6 H Plt Count 207 212 MPV 10.4 10.9 Gran % 74.5 H 79.0 H Lymph % (Auto) 12.6 L 10.9 L Price % (Auto) 10.9 H 8.5 H Eos % (Auto) 1.5 1.3 L Baso % (Auto) 0.5 0.3 Gran # 6.56 H 6.92 H Lymph # 1.1 L 1.0 L Price # 1.0 H 0.7 H Eos # 0.1 0.1 Baso # 0.04 0.03 PT INR pO2 VBG pH VBG pCO2 VBG HCO3 VBG Total CO2 VBG O2 Sat (Calc) VBG Base Excess VBG Potassium Sodium Chloride Glucose Lactate FiO2 Potassium Carbon Dioxide Anion Gap BUN Creatinine Est GFR ( Amer) Est GFR (Non-Af Amer) Random Glucose Calcium Iron TIBC % Saturation Total Bilirubin AST ALT Alkaline Phosphatase Troponin I < 0.01 D Total Protein Albumin Globulin Albumin/Globulin Ratio Triglycerides Cholesterol LDL Cholesterol Direct HDL Cholesterol TSH 3rd Generation Venous Blood Potassium Urine Opiates Screen Urine Methadone Screen Ur Barbiturates Screen Ur Phencyclidine Scrn Ur Amphetamines Screen U Benzodiazepines Scrn U Oth Cocaine Metabols U Cannabinoids Screen 09/26/16 09/26/16 07:00 07:00 WBC RBC Hgb Hct MCV MCH MCHC RDW Plt Count MPV Gran % Lymph % (Auto) Price % (Auto) Eos % (Auto) Baso % (Auto) Gran # Lymph # Price # Eos # Baso # PT 11.9 H INR 1.10 H pO2 VBG pH VBG pCO2 VBG HCO3 VBG Total CO2 VBG O2 Sat (Calc) VBG Base Excess VBG Potassium Sodium 145 Chloride 107 Glucose Lactate FiO2 Potassium 3.5 L Carbon Dioxide 26 Anion Gap 16 BUN 17 Creatinine 1.3 Est GFR ( Amer) > 60 Est GFR (Non-Af Amer) 56 Random Glucose 96 Calcium 9.5 Iron TIBC % Saturation Total Bilirubin 1.7 H AST 35 ALT 53 Alkaline Phosphatase 191 H Troponin I Total Protein 6.9 Albumin 4.0 Globulin 3.0 Albumin/Globulin Ratio 1.3 Triglycerides Cholesterol LDL Cholesterol Direct HDL Cholesterol TSH 3rd Generation Venous Blood Potassium Urine Opiates Screen Urine Methadone Screen Ur Barbiturates Screen Ur Phencyclidine Scrn Ur Amphetamines Screen U Benzodiazepines Scrn U Oth Cocaine Metabols U Cannabinoids Screen - Impressions Impression: CT Abd/Pelv w/ PO constast = no sig findings; colon, liver biliary with no acute pathology Assessment & Plan - Assessment and Plan (Free Text) Assessment: Ariel Bonner is a 61M w/ hx of anemia and HTN. Pt was admitted for severe anemia and CHF exacerbation. Pt is s/p 5 units of PRBC. Its microcytic hypochromic anemia so DDx include blood loss and iron deficiency. It is unlikely a hemolytic process due to normal bilirubin and LDH on admission. Etiology for anemia includes r/o maligancy, ulcer, AVM, or luminal pathology 1. Severe microcytic hypochromic anemia DDx: r/o malignancy, ulcers, celiac, or SM disease, AVM -keep hgb > 7 -continue PPI 40mg IV daily -Clears liquid diet for know -will need cardiac clearance for EGD and colonoscopy -If cleared by cardiology, NPO after midnight -and will start prep today -Iron studies noted and reveals prob CHAVA -If egd and colonoscopy neg will do capsule study to eval small bowel 2. CHF exerbation 3. HTN will D/W Dr. Lentz <Leobardo Lentz - Last Filed: 09/26/16 12:41> Meds - Medications Medications: Current Medications Ceftriaxone Sodium (Rocephin 1 Gram Ivpb) 1 gm in 100 mls @ 100 mls/hr IVPB DAILY NAV PRN Reason: Protocol Last Admin: 09/26/16 10:04 Dose: 100 mls/hr Metoprolol Tartrate (Lopressor) 5 mg IVP Q6H PRN PRN Reason: Systolic Blood Pressure Last Admin: 09/26/16 06:44 Dose: 5 mg Pantoprazole Sodium (Protonix Ec Tab) 40 mg PO ACB NAV Results - Vital Signs Recent Vital Signs: Last Vital Signs Temp 98.4 F 09/26/16 12:00 Pulse 66 09/26/16 12:00 Resp 22 09/26/16 12:00 BP 188/92 H 09/26/16 12:00 Pulse Ox 98 09/26/16 12:00 - Labs Result Diagrams: 09/26/16 11:45 09/26/16 07:00 Labs: Laboratory Results - last 24 hr 09/25/16 09/25/16 09/25/16 18:29 20:15 20:15 WBC 7.9 RBC 2.75 L Hgb 5.7 L* D Hct 19.9 L* MCV 72.4 L MCH 20.7 L MCHC 28.6 L RDW 20.1 H Plt Count 209 MPV 10.4 Gran % 71.9 H Lymph % (Auto) 14.5 L Price % (Auto) 12.1 H Eos % (Auto) 1.0 L Baso % (Auto) 0.5 Gran # 5.68 Lymph # 1.2 Price # 1.0 H Eos # 0.1 Baso # 0.04 PT INR pO2 VBG pH VBG pCO2 VBG HCO3 VBG Total CO2 VBG O2 Sat (Calc) VBG Base Excess VBG Potassium Sodium Chloride Glucose Lactate FiO2 Potassium Carbon Dioxide Anion Gap BUN Creatinine Est GFR ( Amer) Est GFR (Non-Af Amer) Random Glucose Calcium Iron TIBC % Saturation Total Bilirubin AST ALT Alkaline Phosphatase Troponin I Total Protein Albumin Globulin Albumin/Globulin Ratio Triglycerides Cholesterol LDL Cholesterol Direct HDL Cholesterol TSH 3rd Generation 1.52 Venous Blood Potassium Urine Opiates Screen Negative Urine Methadone Screen Negative Ur Barbiturates Screen Negative Ur Phencyclidine Scrn Negative Ur Amphetamines Screen Negative U Benzodiazepines Scrn Negative U Oth Cocaine Metabols Negative U Cannabinoids Screen Negative 09/25/16 09/25/16 09/25/16 20:15 20:20 20:20 WBC RBC Hgb Hct MCV MCH MCHC RDW Plt Count MPV Gran % Lymph % (Auto) Price % (Auto) Eos % (Auto) Baso % (Auto) Gran # Lymph # Price # Eos # Baso # PT INR pO2 152 H VBG pH 7.46 H VBG pCO2 36.0 L VBG HCO3 25.6 VBG Total CO2 26.7 VBG O2 Sat (Calc) 99.8 H VBG Base Excess 2.0 VBG Potassium 4.5 Sodium 141.0 Chloride 113.0 H Glucose 94 Lactate 1.1 FiO2 21.0 Potassium Carbon Dioxide Anion Gap BUN Creatinine Est GFR ( Amer) Est GFR (Non-Af Amer) Random Glucose Calcium Iron 46 TIBC 496 H % Saturation 9 L Total Bilirubin AST ALT Alkaline Phosphatase Troponin I 0.02 D Total Protein Albumin Globulin Albumin/Globulin Ratio Triglycerides 102 Cholesterol 116 L LDL Cholesterol Direct 84 HDL Cholesterol 17 L TSH 3rd Generation Venous Blood Potassium 4.5 Urine Opiates Screen Urine Methadone Screen Ur Barbiturates Screen Ur Phencyclidine Scrn Ur Amphetamines Screen U Benzodiazepines Scrn U Oth Cocaine Metabols U Cannabinoids Screen 09/26/16 09/26/16 09/26/16 03:19 03:19 07:00 WBC 8.8 8.8 RBC 3.67 4.17 Hgb 8.3 L 9.8 L Hct 27.5 L 31.9 L MCV 74.9 L 76.5 L MCH 22.6 L 23.5 L MCHC 30.2 L 30.7 L RDW 20.9 H 20.6 H Plt Count 207 212 MPV 10.4 10.9 Gran % 74.5 H 79.0 H Lymph % (Auto) 12.6 L 10.9 L Price % (Auto) 10.9 H 8.5 H Eos % (Auto) 1.5 1.3 L Baso % (Auto) 0.5 0.3 Gran # 6.56 H 6.92 H Lymph # 1.1 L 1.0 L Price # 1.0 H 0.7 H Eos # 0.1 0.1 Baso # 0.04 0.03 PT INR pO2 VBG pH VBG pCO2 VBG HCO3 VBG Total CO2 VBG O2 Sat (Calc) VBG Base Excess VBG Potassium Sodium Chloride Glucose Lactate FiO2 Potassium Carbon Dioxide Anion Gap BUN Creatinine Est GFR ( Amer) Est GFR (Non-Af Amer) Random Glucose Calcium Iron TIBC % Saturation Total Bilirubin AST ALT Alkaline Phosphatase Troponin I < 0.01 D Total Protein Albumin Globulin Albumin/Globulin Ratio Triglycerides Cholesterol LDL Cholesterol Direct HDL Cholesterol TSH 3rd Generation Venous Blood Potassium Urine Opiates Screen Urine Methadone Screen Ur Barbiturates Screen Ur Phencyclidine Scrn Ur Amphetamines Screen U Benzodiazepines Scrn U Oth Cocaine Metabols U Cannabinoids Screen 09/26/16 09/26/16 09/26/16 07:00 07:00 10:00 WBC 10.1 RBC 4.25 Hgb 10.1 L Hct 32.6 L MCV 76.7 L MCH 23.8 L MCHC 31.0 RDW 20.5 H Plt Count 223 MPV 11.3 H Gran % 76.5 H Lymph % (Auto) 11.6 L Price % (Auto) 10.4 H Eos % (Auto) 1.2 L Baso % (Auto) 0.3 Gran # 7.71 H Lymph # 1.2 Price # 1.1 H Eos # 0.1 Baso # 0.03 PT 11.9 H INR 1.10 H pO2 VBG pH VBG pCO2 VBG HCO3 VBG Total CO2 VBG O2 Sat (Calc) VBG Base Excess VBG Potassium Sodium 145 Chloride 107 Glucose Lactate FiO2 Potassium 3.5 L Carbon Dioxide 26 Anion Gap 16 BUN 17 Creatinine 1.3 Est GFR ( Amer) > 60 Est GFR (Non-Af Amer) 56 Random Glucose 96 Calcium 9.5 Iron TIBC % Saturation Total Bilirubin 1.7 H AST 35 ALT 53 Alkaline Phosphatase 191 H Troponin I Total Protein 6.9 Albumin 4.0 Globulin 3.0 Albumin/Globulin Ratio 1.3 Triglycerides Cholesterol LDL Cholesterol Direct HDL Cholesterol TSH 3rd Generation Venous Blood Potassium Urine Opiates Screen Urine Methadone Screen Ur Barbiturates Screen Ur Phencyclidine Scrn Ur Amphetamines Screen U Benzodiazepines Scrn U Oth Cocaine Metabols U Cannabinoids Screen 09/26/16 11:45 WBC 9.9 RBC 4.24 Hgb 10.1 L Hct 32.4 L MCV 76.4 L MCH 23.8 L MCHC 31.2 RDW 20.7 H Plt Count 231 MPV Gran % 75.9 H Lymph % (Auto) 11.2 L Price % (Auto) 11.4 H Eos % (Auto) 1.0 L Baso % (Auto) 0.5 Gran # 7.48 H Lymph # 1.1 L Price # 1.1 H Eos # 0.1 Baso # 0.05 PT INR pO2 VBG pH VBG pCO2 VBG HCO3 VBG Total CO2 VBG O2 Sat (Calc) VBG Base Excess VBG Potassium Sodium Chloride Glucose Lactate FiO2 Potassium Carbon Dioxide Anion Gap BUN Creatinine Est GFR ( Amer) Est GFR (Non-Af Amer) Random Glucose Calcium Iron TIBC % Saturation Total Bilirubin AST ALT Alkaline Phosphatase Troponin I Total Protein Albumin Globulin Albumin/Globulin Ratio Triglycerides Cholesterol LDL Cholesterol Direct HDL Cholesterol TSH 3rd Generation Venous Blood Potassium Urine Opiates Screen Urine Methadone Screen Ur Barbiturates Screen Ur Phencyclidine Scrn Ur Amphetamines Screen U Benzodiazepines Scrn U Oth Cocaine Metabols U Cannabinoids Screen Attending/Attestation - Attestation I have personally seen and examined this patient.: Yes I have fully participated in the care of the patient.: Yes I have reviewed all pertinent clinical information: Yes Notes (Text): 09/26/16 12:39 61 year old male with h/o HTN presented with progessive sob 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 1. Iron deficiency anemia Plan: -s/p transfusion, appropriate response -no overt GI blood loss -echo done today, await result -if stable from cardiac standpoint, may prep for EGD/Colonoscopy tomorrow to eval source of anemia -clear liquid diet / Golytely 4 liters / NPO after MN -no need for protonix drip, may switch to PO daily at this time
[2016-09-26] MEDS: cefTRIAXone 1 gm 1 GM/100 ML BAG IVPB SCH (10:04)
[2016-09-26 10:21] LABS: BASO # 0.03 K/mm3 (0.0-2.0); BASO % 0.3 % (0.0-3.0); EOS # 0.1 (0.0-0.7); EOS % 1.2 % (1.5-5.0); GRAN # 7.71 (1.4-6.5); GRAN % 76.5 % (50.0-68.0); HEMOGLOBIN 10.1 gm/dL (14.0-18.0); LYMPH # 1.2 (1.2-3.4); LYMPH % 11.6 % (22.0-35.0); MEAN CELL VOLUME 76.7 fL (80.0-105.0); MEAN CORPUSCULAR HEMOGLOBIN 23.8 pg (25.0-35.0); MEAN PLATELET VOLUME 11.3 fl (7.0-11.0); MONO # 1.1 (0.1-0.6); MONO % 10.4 % (1.0-6.0); PLATELET COUNT 223 10^3/uL (120.0-450.0); RBC 4.25 10^6/uL (3.5-6.1); RED CELL DISTRIBUTION WIDTH 20.5 % (11.5-14.5); WHITE BLOOD COUNT 10.1 10^3/ul (4.5-11.0)
[2016-09-26 12:09] LABS: BASO # 0.05 K/mm3 (0.0-2.0); BASO % 0.5 % (0.0-3.0); EOS # 0.1 (0.0-0.7); GRAN # 7.48 (1.4-6.5); GRAN % 75.9 % (50.0-68.0); HEMOGLOBIN 10.1 gm/dL (14.0-18.0); LYMPH # 1.1 (1.2-3.4); LYMPH % 11.2 % (22.0-35.0); MEAN CELL VOLUME 76.4 fL (80.0-105.0); MEAN CORPUSCULAR HEMOGLOBIN 23.8 pg (25.0-35.0); MEAN CORPUSCULAR HGB CONC 31.2 g/dl (31.0-37.0); MONO # 1.1 (0.1-0.6); MONO % 11.4 % (1.0-6.0); PLATELET COUNT 231 10^3/uL (120.0-450.0); RBC 4.24 10^6/uL (3.5-6.1); RED CELL DISTRIBUTION WIDTH 20.7 % (11.5-14.5); WHITE BLOOD COUNT 9.9 10^3/ul (4.5-11.0)
[2016-09-26] MEDS ORDERED: guaiFENesin 600 mg ER Tab PO PRN (12:50)
--- NOTE | 2016-09-26 13:10 | CARD ---
APPROVED REPORT EXAM: Two-dimensional and M-mode echocardiogram with Doppler and color Doppler. INDICATION 2D DIMENSIONS IVSd1.6 (0.7-1.1cm)LVDd4.6 (3.9-5.9cm) PWd1.5 (0.7-1.1cm)LVDs3.2 (2.5-4.0cm) FS (%) 30.3 %LVEF (%)57.8 (>50%) M-Mode DIMENSIONS Left Atrium (MM)4.70 (2.5-4.0cm)Aortic Root3.30 (2.2-3.7cm) Aortic Cusp Exc.1.70 (1.5-2.0cm) Aortic Valve AoV Peak Gbyczsir681.0cm/Doreen Peak GR.20mmHg Mitral Valve MV E [id number]/s TDI Lateral E' Peak V9.36cm/sMedial E' Peak V8.38cm/sE/Lateral E'16.1 E/Medial E'18.0 Tricuspid Valve TR Peak [id number]/sRAP [id number] Peak Gr.46mmHg [id number] LEFT VENTRICLE The left ventricle is normal size. There is moderate concentric left ventricular hypertrophy. The left ventricular function is normal.EF-55-60% There is normal LV segmental wall motion. Transmitral Doppler flow pattern is Grade II-pseudonormal filling dynamics. No left ventricle thrombus noted on this study. There is no ventricular septal defect visualized. There is no left ventricular aneurysm. There is no mass noted in the left ventricle. RIGHT VENTRICLE The right ventricle is normal size. There is normal right ventricular wall thickness. The right ventricular systolic function is normal. ATRIA The left atrium is mildly dilated. The right atrium is mildly dilated. The interatrial septum is intact with no evidence for an atrial septal defect. AORTIC VALVE The aortic valve is calcified but opens well. There is trace aortic regurgitation. Aortic Sclerosis Mild As There is no aortic valvular vegetation. MITRAL VALVE The mitral valve is thickened but opens well. Mitral regurgitation is mild to moderate. There is no mitral valve stenosis. There is no evidence of mitral valve prolapse. TRICUSPID VALVE The tricuspid valve leaflets are thickened , but open well. There is mild to moderate tricuspid regurgitation.RVSP-56 mmof hg. There is no tricuspid valve stenosis. There is no tricuspid valve prolapse or vegetation. PULMONIC VALVE The pulmonic valve is not well visualized. There is no pulmonic valvular regurgitation. There is no pulmonic valvular stenosis. GREAT VESSELS The aortic root is normal in size. The ascending aorta is normal in size. The pulmonary artery is normal. The IVC is dilated. PERICARDIAL EFFUSION There is no pleural effusion. There is a trace pericardial effusion. <Conclusion> The left ventricle is normal size. There is moderate concentric left ventricular hypertrophy. The left ventricular function is normal.EF-55-60% There is trace aortic regurgitation. Aortic Sclerosis Mild As Mitral regurgitation is mild to moderate. There is mild to moderate tricuspid regurgitation.RVSP-56 mmof hg. The IVC is dilated. There is a trace pericardial effusion. No Vegetation or thrombus noted.
--- NOTE | 2016-09-26 13:51 | CP.PCM.CON ---
History of Present Illness - History of Present Illness History of Present Illness: 61 yo without significant PMH, who presented with gradually worsening SOB, initially on exertion and then at rest, associated with some chest tightness occasionally. found to severely anemic and recieved % units of PRBCs no melena, no change in stool color, no hematemesis, Patient was taking naproxen on and off for non specific pain Past Patient History - Infectious Disease Hx of Infectious Diseases: None - Past Medical History & Family History Past Medical History?: No - Past Social History Smoking Status: Current Some Days Smoker - CARDIAC Hx Hypertension: Yes - PULMONARY Hx Respiratory Disorders: No - NEUROLOGICAL Hx Neurological Disorder: No - HEENT Hx HEENT Problems: No - RENAL Hx Chronic Kidney Disease: No - ENDOCRINE/METABOLIC Hx Endocrine Disorders: No - HEMATOLOGICAL/ONCOLOGICAL Hx Blood Disorders: No - INTEGUMENTARY Hx Dermatological Problems: Yes Other/Comment: pt has multiple round brown spots on both lower legs. pt states they are a result of childhood illness. no broken or draining areas - MUSCULOSKELETAL/RHEUMATOLOGICAL Hx Musculoskeletal Disorders: No Hx Falls: No - GASTROINTESTINAL Hx Gastrointestinal Disorders: No - GENITOURINARY/GYNECOLOGICAL Hx Genitourinary Disorders: No - PSYCHIATRIC Hx Psychophysiologic Disorder: No Hx Substance Use: No - SURGICAL HISTORY Hx Surgeries: No Meds Allergies/Adverse Reactions: Allergies Allergy/AdvReac Type Severity Reaction Status Date / Time No Known Allergies Allergy Verified 09/25/16 12:54 - Medications Medications: Current Medications Hydralazine HCl (Apresoline) 10 mg IVP Q6 PRN PRN Reason: Systolic Blood Pressure Last Admin: 09/26/16 13:06 Dose: 10 mg Ceftriaxone Sodium (Rocephin 1 Gram Ivpb) 1 gm in 100 mls @ 100 mls/hr IVPB DAILY NAV PRN Reason: Protocol Last Admin: 09/26/16 10:04 Dose: 100 mls/hr Metoprolol Tartrate (Lopressor) 25 mg PO BRKDIN NAV Pantoprazole Sodium (Protonix Ec Tab) 40 mg PO ACB NAV Physical Exam - Head Exam Head Exam: ATRAUMATIC - Eye Exam Eye Exam: Normal appearance - Neck Exam Neck exam: Positive for: Normal Inspection - Respiratory Exam Respiratory Exam: Clear to Auscultation Bilateral - Cardiovascular Exam Cardiovascular Exam: REGULAR RHYTHM - GI/Abdominal Exam GI & Abdominal Exam: Normal Bowel Sounds - Extremities Exam Extremities exam: Positive for: normal inspection Results - Vital Signs Recent Vital Signs: Last Vital Signs Temp 98.4 F 09/26/16 12:00 Pulse 66 09/26/16 13:06 Resp 22 09/26/16 12:00 BP 187/95 H 09/26/16 13:06 Pulse Ox 98 09/26/16 12:00 - Labs Result Diagrams: 09/26/16 11:45 09/26/16 07:00 Labs: Laboratory Results - last 24 hr 09/25/16 09/25/16 09/25/16 18:29 20:15 20:15 WBC 7.9 RBC 2.75 L Hgb 5.7 L* D Hct 19.9 L* MCV 72.4 L MCH 20.7 L MCHC 28.6 L RDW 20.1 H Plt Count 209 MPV 10.4 Gran % 71.9 H Lymph % (Auto) 14.5 L Taney % (Auto) 12.1 H Eos % (Auto) 1.0 L Baso % (Auto) 0.5 Gran # 5.68 Lymph # 1.2 Taney # 1.0 H Eos # 0.1 Baso # 0.04 PT INR pO2 VBG pH VBG pCO2 VBG HCO3 VBG Total CO2 VBG O2 Sat (Calc) VBG Base Excess VBG Potassium Sodium Chloride Glucose Lactate FiO2 Potassium Carbon Dioxide Anion Gap BUN Creatinine Est GFR ( Amer) Est GFR (Non-Af Amer) Random Glucose Hemoglobin A1c 6.0 Calcium Iron TIBC % Saturation Total Bilirubin Direct Bilirubin AST ALT Alkaline Phosphatase Troponin I Total Protein Albumin Globulin Albumin/Globulin Ratio Triglycerides Cholesterol LDL Cholesterol Direct HDL Cholesterol TSH 3rd Generation Venous Blood Potassium Urine Opiates Screen Negative Urine Methadone Screen Negative Ur Barbiturates Screen Negative Ur Phencyclidine Scrn Negative Ur Amphetamines Screen Negative U Benzodiazepines Scrn Negative U Oth Cocaine Metabols Negative U Cannabinoids Screen Negative 09/25/16 09/25/16 09/25/16 20:15 20:15 20:20 WBC RBC Hgb Hct MCV MCH MCHC RDW Plt Count MPV Gran % Lymph % (Auto) Taney % (Auto) Eos % (Auto) Baso % (Auto) Gran # Lymph # Taney # Eos # Baso # PT INR pO2 152 H VBG pH 7.46 H VBG pCO2 36.0 L VBG HCO3 25.6 VBG Total CO2 26.7 VBG O2 Sat (Calc) 99.8 H VBG Base Excess 2.0 VBG Potassium 4.5 Sodium 141.0 Chloride 113.0 H Glucose 94 Lactate 1.1 FiO2 21.0 Potassium Carbon Dioxide Anion Gap BUN Creatinine Est GFR ( Amer) Est GFR (Non-Af Amer) Random Glucose Hemoglobin A1c Calcium Iron TIBC % Saturation Total Bilirubin Direct Bilirubin AST ALT Alkaline Phosphatase Troponin I 0.02 D Total Protein Albumin Globulin Albumin/Globulin Ratio Triglycerides 102 Cholesterol 116 L LDL Cholesterol Direct 84 HDL Cholesterol 17 L TSH 3rd Generation 1.52 Venous Blood Potassium 4.5 Urine Opiates Screen Urine Methadone Screen Ur Barbiturates Screen Ur Phencyclidine Scrn Ur Amphetamines Screen U Benzodiazepines Scrn U Oth Cocaine Metabols U Cannabinoids Screen 09/25/16 09/26/16 09/26/16 20:20 03:19 03:19 WBC 8.8 RBC 3.67 Hgb 8.3 L Hct 27.5 L MCV 74.9 L MCH 22.6 L MCHC 30.2 L RDW 20.9 H Plt Count 207 MPV 10.4 Gran % 74.5 H Lymph % (Auto) 12.6 L Taney % (Auto) 10.9 H Eos % (Auto) 1.5 Baso % (Auto) 0.5 Gran # 6.56 H Lymph # 1.1 L Taney # 1.0 H Eos # 0.1 Baso # 0.04 PT INR pO2 VBG pH VBG pCO2 VBG HCO3 VBG Total CO2 VBG O2 Sat (Calc) VBG Base Excess VBG Potassium Sodium Chloride Glucose Lactate FiO2 Potassium Carbon Dioxide Anion Gap BUN Creatinine Est GFR ( Amer) Est GFR (Non-Af Amer) Random Glucose Hemoglobin A1c Calcium Iron 46 TIBC 496 H % Saturation 9 L Total Bilirubin Direct Bilirubin AST ALT Alkaline Phosphatase Troponin I < 0.01 D Total Protein Albumin Globulin Albumin/Globulin Ratio Triglycerides Cholesterol LDL Cholesterol Direct HDL Cholesterol TSH 3rd Generation Venous Blood Potassium Urine Opiates Screen Urine Methadone Screen Ur Barbiturates Screen Ur Phencyclidine Scrn Ur Amphetamines Screen U Benzodiazepines Scrn U Oth Cocaine Metabols U Cannabinoids Screen 09/26/16 09/26/16 09/26/16 07:00 07:00 07:00 WBC 8.8 RBC 4.17 Hgb 9.8 L Hct 31.9 L MCV 76.5 L MCH 23.5 L MCHC 30.7 L RDW 20.6 H Plt Count 212 MPV 10.9 Gran % 79.0 H Lymph % (Auto) 10.9 L Taney % (Auto) 8.5 H Eos % (Auto) 1.3 L Baso % (Auto) 0.3 Gran # 6.92 H Lymph # 1.0 L Taney # 0.7 H Eos # 0.1 Baso # 0.03 PT 11.9 H INR 1.10 H pO2 VBG pH VBG pCO2 VBG HCO3 VBG Total CO2 VBG O2 Sat (Calc) VBG Base Excess VBG Potassium Sodium 145 Chloride 107 Glucose Lactate FiO2 Potassium 3.5 L Carbon Dioxide 26 Anion Gap 16 BUN 17 Creatinine 1.3 Est GFR ( Amer) > 60 Est GFR (Non-Af Amer) 56 Random Glucose 96 Hemoglobin A1c Calcium 9.5 Iron TIBC % Saturation Total Bilirubin 1.7 H Direct Bilirubin AST 35 ALT 53 Alkaline Phosphatase 191 H Troponin I Total Protein 6.9 Albumin 4.0 Globulin 3.0 Albumin/Globulin Ratio 1.3 Triglycerides Cholesterol LDL Cholesterol Direct HDL Cholesterol TSH 3rd Generation Venous Blood Potassium Urine Opiates Screen Urine Methadone Screen Ur Barbiturates Screen Ur Phencyclidine Scrn Ur Amphetamines Screen U Benzodiazepines Scrn U Oth Cocaine Metabols U Cannabinoids Screen 09/26/16 09/26/16 09/26/16 07:30 10:00 11:45 WBC 10.1 9.9 RBC 4.25 4.24 Hgb 10.1 L 10.1 L Hct 32.6 L 32.4 L MCV 76.7 L 76.4 L MCH 23.8 L 23.8 L MCHC 31.0 31.2 RDW 20.5 H 20.7 H Plt Count 223 231 MPV 11.3 H Gran % 76.5 H 75.9 H Lymph % (Auto) 11.6 L 11.2 L Taney % (Auto) 10.4 H 11.4 H Eos % (Auto) 1.2 L 1.0 L Baso % (Auto) 0.3 0.5 Gran # 7.71 H 7.48 H Lymph # 1.2 1.1 L Taney # 1.1 H 1.1 H Eos # 0.1 0.1 Baso # 0.03 0.05 PT INR pO2 VBG pH VBG pCO2 VBG HCO3 VBG Total CO2 VBG O2 Sat (Calc) VBG Base Excess VBG Potassium Sodium Chloride Glucose Lactate FiO2 Potassium Carbon Dioxide Anion Gap BUN Creatinine Est GFR ( Amer) Est GFR (Non-Af Amer) Random Glucose Hemoglobin A1c Calcium Iron TIBC % Saturation Total Bilirubin Direct Bilirubin 0.6 H AST ALT Alkaline Phosphatase Troponin I Total Protein Albumin Globulin Albumin/Globulin Ratio Triglycerides Cholesterol LDL Cholesterol Direct HDL Cholesterol TSH 3rd Generation Venous Blood Potassium Urine Opiates Screen Urine Methadone Screen Ur Barbiturates Screen Ur Phencyclidine Scrn Ur Amphetamines Screen U Benzodiazepines Scrn U Oth Cocaine Metabols U Cannabinoids Screen Assessment & Plan - Assessment and Plan (Free Text) Assessment: Lateral Ischemic EKG changes sever Anemia Consider High output Failure Mild Mild to moderate MR Moderate pulmonary HTN Plan: Discussed with Dr. Felice RIBEIRO with Colonoscope Cont. Tele monitoring Cont. lopressor and protonix
[2016-09-26 14:04] LABS: FERRITIN 6.6 ng/mL
--- NOTE | 2016-09-26 14:12 | CP.PCM.PN ---
<SHELLEYYOSELYN - Last Filed: 09/26/16 14:29> Subjective - Date & Time of Evaluation Date of Evaluation: 09/26/16 Time of Evaluation: 14:08 - Subjective Subjective: PGY1 ICU Progress Note: Pt seen and examined at bedside. Pt received 2 units prbcs overnight, with improved Hgb 5.7->8.3 this AM. Pt also c/o suprapubic pain, with insertion of cleaning cath draining 4L urine overnight, also received Lasix. This morning, pt has decreased leg swelling; denies SOB, palpitations, weakness, headache, cp, abdominal pain. Objective - Vital Signs/Intake and Output Vital Signs (last 24 hours): Temp Pulse Resp BP Pulse Ox 98.4 F 66 22 187/95 H 98 09/26/16 12:00 09/26/16 13:06 09/26/16 12:00 09/26/16 13:06 09/26/16 12:00 Intake and Output: 09/26/16 09/26/16 06:59 18:59 Intake Total 2515 Output Total 4600 350 Balance -2085 -350 - Medications Medications: Current Medications Bisacodyl (Dulcolax) 20 mg PO ONCE ONE Stop: 09/27/16 08:01 Hydralazine HCl (Apresoline) 10 mg IVP Q6 PRN PRN Reason: Systolic Blood Pressure Last Admin: 09/26/16 13:06 Dose: 10 mg Ceftriaxone Sodium (Rocephin 1 Gram Ivpb) 1 gm in 100 mls @ 100 mls/hr IVPB DAILY NAV PRN Reason: Protocol Last Admin: 09/26/16 10:04 Dose: 100 mls/hr Metoprolol Tartrate (Lopressor) 25 mg PO BRKDIN NAV Pantoprazole Sodium (Protonix Ec Tab) 40 mg PO ACB NAV Polyethylene Glycol/Electrolytes (Golytely) 4,000 ml PO ONCE ONE Stop: 09/26/16 17:01 - Labs Labs: 09/26/16 11:45 09/26/16 07:00 PT 11.9 Seconds (9.9-11.8) H 09/26/16 07:00 INR 1.10 (0.93-1.08) H 09/26/16 07:00 APTT 24.2 Seconds (23.7-30.8) 09/25/16 12:58 - Constitutional Appears: Well, No Acute Distress - Head Exam Head Exam: ATRAUMATIC, NORMOCEPHALIC - Eye Exam Eye Exam: PERRL - ENT Exam ENT Exam: Mucous Membranes Moist - Respiratory Exam Respiratory Exam: Clear to Ausculation Bilateral - Cardiovascular Exam Cardiovascular Exam: RRR, +S1, +S2. absent: Gallop, Rubs, Murmur - GI/Abdominal Exam GI & Abdominal Exam: Soft, Normal Bowel Sounds. absent: Distended Additional comments: + suprapubic tenderness. - Neurological Exam Neurological Exam: Alert, Awake, Oriented x3 - Psychiatric Exam Psychiatric exam: Normal Mood - Skin Skin Exam: Dry, Intact, Normal Color, Warm Assessment and Plan - Assessment and Plan (Free Text) Assessment: 61M with PMH HTN, admitted to ICU for severe, symptomatic anemia with cardiac ischemia, likely 2/2 chronic GI blood loss. Pt also found to have severe urinary retention, with drainage of 4L UO within the past 12hrs, improved ASTUDILLO and chest tightness. Pt is s/p 5 units prbcs transfusion, with improved hgb. Pt currently on protonix drip, to undergo EGD and colonscopy tomorrow as per GI fellow (Dr. Chelle Viveros). Plan: Neuro: AAOx3. No mental status changes. Will cont to monitor. CV: NSR. Maintain MAP>65. trops negx3. f/u echo. Resp: SOB overnight, s/p Lasix, on RA. Saturating well. Nephro: Stable BUN/Cr. Replace lytes and maintain euvolemia. GI: NPO. FOBT+, C/w protonix drip, GI c/s appreciated, will undergo EGD and colonoscopy tomorrow as per fellow (Dr. Viveros) Heme: s/p 5 units prbcs transfusion, Hgb 4.1->5.7->9.8 today. Cont to trend and observe for overt blood losses. ID: afebrile, no leukocytosis. Cont with rocephin. Case seen and discussed with PGY2 and attending, Dr. Calabrese. Yoselyn Nguyen, PGY1 <Akhil Calabrese - Last Filed: 09/26/16 18:54> Objective - Vital Signs/Intake and Output Vital Signs (last 24 hours): Temp Pulse Resp BP Pulse Ox 98.4 F 64 22 181/87 H 98 09/26/16 12:00 09/26/16 17:11 09/26/16 12:00 09/26/16 17:11 09/26/16 12:00 Intake and Output: 09/26/16 09/26/16 06:59 18:59 Intake Total 2515 Output Total 4600 350 Balance -2085 -350 - Medications Medications: Current Medications Hydralazine HCl (Apresoline) 10 mg IVP Q6 PRN PRN Reason: Systolic Blood Pressure Last Admin: 09/26/16 13:06 Dose: 10 mg Ceftriaxone Sodium (Rocephin 1 Gram Ivpb) 1 gm in 100 mls @ 100 mls/hr IVPB DAILY NAV PRN Reason: Protocol Last Admin: 09/26/16 10:04 Dose: 100 mls/hr Metoprolol Tartrate (Lopressor) 25 mg PO BRKDIN NAV Last Admin: 09/26/16 17:11 Dose: 25 mg Pantoprazole Sodium (Protonix Ec Tab) 40 mg PO ACB NAV - Labs Labs: 09/26/16 11:45 09/26/16 07:00 PT 11.9 Seconds (9.9-11.8) H 09/26/16 07:00 INR 1.10 (0.93-1.08) H 09/26/16 07:00 APTT 24.2 Seconds (23.7-30.8) 09/25/16 12:58 Attending/Attestation - Attestation I have personally seen and examined this patient.: Yes I have fully participated in the care of the patient.: Yes I have reviewed all pertinent clinical information, including history, physical exam and plan: Yes Notes (Text): 09/26/16 18:52 61 yo male with chronic GI bleed, who presented with severe anemia, s/p 5 PRBC units of blood trasnfusion with adequate response. Obstructive uropathy corrected with Cleaning. Dr Ji consult appreciated. CT abdo/pelvis didnt reveal suspicious mass. GI consult: o/p endoscopy ccm time 40 min
[2016-09-26 14:13] LABS: HEPATITIS B SURFACE AG NEGATIVE (NEGATIVE)
[2016-09-26 14:18] LABS: HEPATITIS A IGM NEGATIVE (NEGATIVE)
[2016-09-26 14:19] LABS: HEPATITIS B CORE AB NEGATIVE (NEGATIVE)
[2016-09-26 14:30] LABS: HEPATITIS C ANTIBODY NEGATIVE (NEGATIVE)
[2016-09-26] MEDS ORDERED: Bisacodyl 5mg EC Tab PO ONE (15:27)
--- NOTE | 2016-09-26 16:58 | CP.PCM.PN ---
Addendum entered and electronically signed by Ramila Mendoza DO 09/26/16 17:10: Physical Exam: General pt awake, cooperative. HEENT orbital edema has improved. Mildly icteric conjunctiva, pale mucous membranes both improved since yesterday. Heart RRR, +S1/S2, no m/r/g Lungs CTA b/l, good air flow, no w/r/r Abd nondistended, +suprapubic tenderness, normoactive BS, no organomegaly Ext 1+ bilateral LE edema, hyperpigmented variable sized lesions on anterior lower leg Skin color has improved Original Note: <Ramila Mendoza - Last Filed: 09/26/16 16:56> Subjective - Date & Time of Evaluation Date of Evaluation: 09/26/16 Time of Evaluation: 09:30 - Subjective Subjective: Pt seen and examined this morning at bedside. Pt says hes feeling better today , reports less fatigue, no complaints. Denies dizziness, CP, SOB, n/v, diarrhea. Objective - Vital Signs/Intake and Output Vital Signs (last 24 hours): Temp Pulse Resp BP Pulse Ox 98.4 F 66 22 187/95 H 98 09/26/16 12:00 09/26/16 13:06 09/26/16 12:00 09/26/16 13:06 09/26/16 12:00 Intake and Output: 09/26/16 09/26/16 06:59 18:59 Intake Total 2515 Output Total 4600 350 Balance -2085 -350 - Medications Medications: Current Medications Hydralazine HCl (Apresoline) 10 mg IVP Q6 PRN PRN Reason: Systolic Blood Pressure Last Admin: 09/26/16 13:06 Dose: 10 mg Ceftriaxone Sodium (Rocephin 1 Gram Ivpb) 1 gm in 100 mls @ 100 mls/hr IVPB DAILY NAV PRN Reason: Protocol Last Admin: 09/26/16 10:04 Dose: 100 mls/hr Metoprolol Tartrate (Lopressor) 25 mg PO BRKDIN NAV Pantoprazole Sodium (Protonix Ec Tab) 40 mg PO ACB NAV Polyethylene Glycol/Electrolytes (Golytely) 4,000 ml PO ONCE ONE Stop: 09/26/16 17:01 - Labs Labs: 09/26/16 11:45 09/26/16 07:00 PT 11.9 Seconds (9.9-11.8) H 09/26/16 07:00 INR 1.10 (0.93-1.08) H 09/26/16 07:00 APTT 24.2 Seconds (23.7-30.8) 09/25/16 12:58 Assessment and Plan - Assessment and Plan (Free Text) Assessment: 61yo M with symptomatic microcytic anemia, UTI, HTN, ischemia on EkG, bilateral leg edema, chronic skin changes Plan: 1.Symptomatic microcytic anemia - improved 5 units transfused, HBG 4.1->9.8 Positive occult blood Start full liquid diet GI recs appreciated prep for EGD/colonoscopy tomorrow, golytely 4L, NPO after midnight, switch to PO PTX 2.UTI vs prostatis Suprapubic tenderness noted on exam Rocephin started Blood culture NG x1d Cleaning placed 2/[address], 4800 mL drained F/u urine culture Void trial, PSA Uro recs appreciated d/c with cleaning with leg bag, f/u outpt 3.HTN Metoprolol 25mg PO, Hydralazine PRN Pt no longer NPO, change metoprolol to 25mg PO BID TSH 1.52 4.Ischemic changes on EkG EkG showed sinus tachycardia with possible PVCs, possible LV enlargement, ST depressions Serial trops neg x3 (<0.01, 0.02, <0.01) Repeat EkG F/u ECHO Cardio recs appreciated cont. Lopressor and PTX, cont. tele, ok with colonoscopy 5.Bilateral leg edema Edema has decreased from yesterday Lasix given x2 (20mg x1 and 40mg x1) F/u ECHO, hepatitis panel F/u cardio recs 6.Chronic skin changes Stasis dermatitis vs autoimmune process HbA1C 6 HIV neg F/u GANESH 7.Transaminitis - resolved Hep panel neg Case seen, reviewed and discussed with attending Ramila Mendoza PGY 1 <Della Antonio - Last Filed: 09/26/16 17:38> Objective - Vital Signs/Intake and Output Vital Signs (last 24 hours): Temp Pulse Resp BP Pulse Ox 98.4 F 64 22 181/87 H 98 09/26/16 12:00 09/26/16 17:11 09/26/16 12:00 09/26/16 17:11 09/26/16 12:00 Intake and Output: 09/26/16 09/26/16 06:59 18:59 Intake Total 2515 Output Total 4600 350 Balance -2085 -350 - Medications Medications: Current Medications Hydralazine HCl (Apresoline) 10 mg IVP Q6 PRN PRN Reason: Systolic Blood Pressure Last Admin: 09/26/16 13:06 Dose: 10 mg Ceftriaxone Sodium (Rocephin 1 Gram Ivpb) 1 gm in 100 mls @ 100 mls/hr IVPB DAILY NAV PRN Reason: Protocol Last Admin: 09/26/16 10:04 Dose: 100 mls/hr Metoprolol Tartrate (Lopressor) 25 mg PO BRKDIN [facility] Last Admin: 09/26/16 17:11 Dose: 25 mg Pantoprazole Sodium (Protonix Ec Tab) 40 mg PO ACB NAV - Labs Labs: 09/26/16 11:45 09/26/16 07:00 PT 11.9 Seconds (9.9-11.8) H 09/26/16 07:00 INR 1.10 (0.93-1.08) H 09/26/16 07:00 APTT 24.2 Seconds (23.7-30.8) 09/25/16 12:58 Attending/Attestation - Attestation I have personally seen and examined this patient.: Yes I have fully participated in the care of the patient.: Yes I have reviewed all pertinent clinical information, including history, physical exam and plan: Yes Notes (Text): 09/26/16 17:29 I have seen and examined patient at bedside. Agree with the above note outlined by the resident with the following additions/ exceptions: Briefly this is 61 year old male with history of HTN, anemia, tobacco use who was admitted for dyspnea on exertion, orthopnea, LE swelling, palpitations, urinary frequency and generalized weakness and found to have symptomatic microcytic anemia, UTI, prostate enlargement and severely distended bladder. Patient was given 5 units of prbc. Scheduled for EGD/ colonoscopy in am. Continue Rocephin for UTI. F/U Urine culture. PSA ordered. Continue cleaning catheterization as UO was 4800 ml after cleaning was placed. Urologist recommended follow up with urologist as an outpatient. Patient had lateral ischemic changes on EKG. Echo revealed mild , mild to moderate MR and moderate pulmonary hypertension. Most likely symptoms are secondary to high output heart failure. Patient has chronic LE ulcers. Will recommend outpatient work up. Upon discharge patient will follow up in [facility] clinic. Dr Della Antonio
[2016-09-26] MEDS ORDERED: Peg-Electrolyte Oral Soln 4L (Golytely) PO ONE (17:00)
[2016-09-27] MEDS ORDERED: Oxycodone/Acetaminophen 10/325 mg Tab PO STA (00:32)
[2016-09-27] MEDS ORDERED: HYDROmorphone 1 mg/ml ISec IVP STA (01:17)
--- NOTE | 2016-09-27 01:22 | CP.PCM.PN ---
Subjective - Date & Time of Evaluation Date of Evaluation: 10/11/16 Time of Evaluation: 01:21 - Subjective Subjective: F 16 Cou De catheter was inserted in bladder as per order. Objective - Vital Signs/Intake and Output Vital Signs (last 24 hours): Temp Pulse Resp BP Pulse Ox 98.4 F 84 22 186/87 H 98 09/26/16 12:00 09/27/16 00:17 09/26/16 12:00 09/27/16 00:17 09/26/16 12:00 Intake and Output: 09/26/16 09/27/16 18:59 06:59 Intake Total 620 Output Total 350 Balance -350 620 - Medications Medications: Current Medications Hydralazine HCl (Apresoline) 10 mg IVP Q6 PRN PRN Reason: Systolic Blood Pressure Last Admin: 09/27/16 00:17 Dose: 10 mg Ceftriaxone Sodium (Rocephin 1 Gram Ivpb) 1 gm in 100 mls @ 100 mls/hr IVPB DAILY NAV PRN Reason: Protocol Last Admin: 09/26/16 10:04 Dose: 100 mls/hr Metoprolol Tartrate (Lopressor) 25 mg PO BRKDIN NAV Last Admin: 09/26/16 17:11 Dose: 25 mg Pantoprazole Sodium (Protonix Ec Tab) 40 mg PO ACB NAV - Labs Labs: 09/26/16 11:45 09/26/16 07:00 PT 11.9 Seconds (9.9-11.8) H 09/26/16 07:00 INR 1.10 (0.93-1.08) H 09/26/16 07:00 APTT 24.2 Seconds (23.7-30.8) 09/25/16 12:58
[2016-09-27] MEDS ORDERED: Bisacodyl 5mg EC Tab PO ONE (08:00)
[2016-09-27] MEDS: Pantoprazole 40 mg EC Tab PO SCH (08:37)
[2016-09-27] MEDS ORDERED: Metoprolol 1 mg/ml Inj IVP ONE (09:41)
[2016-09-27 10:19] LABS: BASO # 0.05 K/mm3 (0.0-2.0); BASO % 0.5 % (0.0-3.0); EOS # 0.1 (0.0-0.7); EOS % 1.5 % (1.5-5.0); GRAN # 6.94 (1.4-6.5); GRAN % 72.7 % (50.0-68.0); HEMOGLOBIN 10.6 gm/dL (14.0-18.0); LYMPH # 1.4 (1.2-3.4); LYMPH % 14.8 % (22.0-35.0); MEAN CELL VOLUME 77.4 fL (80.0-105.0); MEAN CORPUSCULAR HEMOGLOBIN 23.8 pg (25.0-35.0); MEAN CORPUSCULAR HGB CONC 30.7 g/dl (31.0-37.0); MEAN PLATELET VOLUME 11.1 fl (7.0-11.0); MONO % 10.5 % (1.0-6.0); PLATELET COUNT 247 10^3/uL (120.0-450.0); RBC 4.46 10^6/uL (3.5-6.1); RED CELL DISTRIBUTION WIDTH 21.4 % (11.5-14.5); WHITE BLOOD COUNT 9.5 10^3/ul (4.5-11.0)
[2016-09-27 10:38] LABS: ALB/GLOB RATIO 1.2 (1.1-1.8); ALBUMIN 3.7 g/dL (3.0-4.8); ALT/SGPT 41 U/L (7-56); AST/SGOT 30 U/L (15-59); BLOOD UREA NITROGEN 14 mg/dL (7-21); CALCIUM 9.1 mg/dL (8.4-10.5); GFR AFRICAN-AMERICAN > 60; GFR NON-AFRICAN AMERICAN > 60
[2016-09-27] MEDS: cefTRIAXone 1 gm 1 GM/100 ML BAG IVPB SCH (11:09)
--- NOTE | 2016-09-27 11:32 | CP.PCM.PN ---
Subjective - Date & Time of Evaluation Date of Evaluation: 09/27/16 Time of Evaluation: 11:30 - Subjective Subjective: no c/p or rectal bleeding Objective - Vital Signs/Intake and Output Vital Signs (last 24 hours): Temp Pulse Resp BP Pulse Ox 97.9 F 60 20 185/91 H 99 09/27/16 07:30 09/27/16 11:09 09/27/16 07:30 09/27/16 11:09 09/27/16 07:30 Intake and Output: 09/27/16 09/27/16 06:59 18:59 Intake Total 620 Balance 620 - Medications Medications: Current Medications Hydralazine HCl (Apresoline) 10 mg IVP Q6 PRN PRN Reason: Systolic Blood Pressure Last Admin: 09/27/16 06:11 Dose: 10 mg Ceftriaxone Sodium (Rocephin 1 Gram Ivpb) 1 gm in 100 mls @ 100 mls/hr IVPB DAILY NAV PRN Reason: Protocol Last Admin: 09/27/16 11:09 Dose: 100 mls/hr Lisinopril (Zestril) 20 mg PO DAILY [facility] Last Admin: 09/27/16 11:09 Dose: 20 mg Metoprolol Tartrate (Lopressor) 25 mg PO BRKDIN [facility] Last Admin: 09/27/16 08:38 Dose: 25 mg Pantoprazole Sodium (Protonix Ec Tab) 40 mg PO ACB [facility] Last Admin: 09/27/16 08:37 Dose: Not Given - Labs Labs: 09/27/16 09:50 09/27/16 09:50 PT 11.9 Seconds (9.9-11.8) H 09/26/16 07:00 INR 1.10 (0.93-1.08) H 09/26/16 07:00 APTT 24.2 Seconds (23.7-30.8) 09/25/16 12:58 - Head Exam Head Exam: NORMAL INSPECTION - Eye Exam Eye Exam: Normal appearance - Neck Exam Neck Exam: Normal Inspection - Respiratory Exam Respiratory Exam: NORMAL BREATHING PATTERN - GI/Abdominal Exam GI & Abdominal Exam: Normal Bowel Sounds Assessment and Plan - Assessment and Plan (Free Text) Assessment: Lateral Ischemic EKG changes sever Anemia Consider High output Failure Mild Mild to moderate MR Moderate pulmonary HTN Plan: Discussed with Dr. Marisela RIBEIRO with Colonoscope Cont. lopressor and protonix
--- NOTE | 2016-09-27 11:57 | CP.PCM.PN ---
<GueritayonisGregory - Last Filed: 09/27/16 11:53> Subjective - Date & Time of Evaluation Date of Evaluation: 09/27/16 Time of Evaluation: 09:10 - Subjective Subjective: PGY5 GI Fellow Progress Note Patient seen and examined bedside this morning. The patient states that he did not drink GoLytely prep yesterday as he became slightly nauseated. No new events overnight. 12 system ROS performed and negative except where stated. Objective - Vital Signs/Intake and Output Vital Signs (last 24 hours): Temp Pulse Resp BP Pulse Ox 97.9 F 60 20 185/91 H 99 09/27/16 07:30 09/27/16 11:09 09/27/16 07:30 09/27/16 11:09 09/27/16 07:30 Intake and Output: 09/27/16 09/27/16 06:59 18:59 Intake Total 620 Balance 620 - Medications Medications: Current Medications Hydralazine HCl (Apresoline) 10 mg IVP Q6 PRN PRN Reason: Systolic Blood Pressure Last Admin: 09/27/16 06:11 Dose: 10 mg Ceftriaxone Sodium (Rocephin 1 Gram Ivpb) 1 gm in 100 mls @ 100 mls/hr IVPB DAILY [facility] PRN Reason: Protocol Last Admin: 09/27/16 11:09 Dose: 100 mls/hr Lisinopril (Zestril) 20 mg PO DAILY [facility] Last Admin: 09/27/16 11:09 Dose: 20 mg Metoprolol Tartrate (Lopressor) 25 mg PO BRKDIN [facility] Last Admin: 09/27/16 08:38 Dose: 25 mg Pantoprazole Sodium (Protonix Ec Tab) 40 mg PO ACB [facility] Last Admin: 09/27/16 08:37 Dose: Not Given Polyethylene Glycol/Electrolytes (Golytely) 4,000 ml PO ONCE ONE Stop: 09/27/16 14:01 - Labs Labs: 09/27/16 09:50 09/27/16 09:50 PT 11.9 Seconds (9.9-11.8) H 09/26/16 07:00 INR 1.10 (0.93-1.08) H 09/26/16 07:00 APTT 24.2 Seconds (23.7-30.8) 09/25/16 12:58 - Constitutional Appears: Non-toxic, No Acute Distress - Eye Exam Eye Exam: EOMI, PERRL - ENT Exam ENT Exam: Mucous Membranes Moist - Respiratory Exam Respiratory Exam: Clear to Ausculation Bilateral. absent: Rales, Rhonchi, Wheezes - Cardiovascular Exam Cardiovascular Exam: RRR, +S1, +S2 - GI/Abdominal Exam GI & Abdominal Exam: Soft, Normal Bowel Sounds. absent: Distended, Firm, Guarding, Rigid, Tenderness, Organomegaly - Extremities Exam Extremities Exam: Pedal Edema Additional comments: LE lesions noted B/L - Neurological Exam Neurological Exam: Alert, Awake, Oriented x3 - Psychiatric Exam Psychiatric exam: Normal Affect, Normal Mood - Skin Skin Exam: Dry, Warm Assessment and Plan - Assessment and Plan (Free Text) Assessment: Patient is a 61 year old male with PMHx significant for HTN who presented with progressive SOB -Iron deficiency anemia; HGB of 4 on admission -Hypertensive urgency Plan: -S/P 5 units PRBCs with appropriate response in HGB; stable today -Did not tolerate prep yesterday; will repeat today -No overt bleeding noted -Plan for EGD/Colonoscopy tomorrow -Clear liquid diet today -NPO past MN except meds -Discussed need for BP control with primary team prior to procedure <Arley Choe MD - Last Filed: 09/27/16 12:24> Objective - Vital Signs/Intake and Output Vital Signs (last 24 hours): Temp Pulse Resp BP Pulse Ox 97.9 F 60 20 185/91 H 99 09/27/16 07:30 09/27/16 11:09 09/27/16 07:30 09/27/16 11:09 09/27/16 07:30 Intake and Output: 09/27/16 09/27/16 06:59 18:59 Intake Total 620 Balance 620 - Medications Medications: Current Medications Hydralazine HCl (Apresoline) 10 mg IVP Q6 PRN PRN Reason: Systolic Blood Pressure Last Admin: 09/27/16 06:11 Dose: 10 mg Ceftriaxone Sodium (Rocephin 1 Gram Ivpb) 1 gm in 100 mls @ 100 mls/hr IVPB DAILY [facility] PRN Reason: Protocol Last Admin: 09/27/16 11:09 Dose: 100 mls/hr Lisinopril (Zestril) 20 mg PO DAILY [facility] Last Admin: 09/27/16 11:09 Dose: 20 mg Metoprolol Tartrate (Lopressor) 25 mg PO BRKDIN [facility] Last Admin: 09/27/16 08:38 Dose: 25 mg Pantoprazole Sodium (Protonix Ec Tab) 40 mg PO ACB [facility] Last Admin: 09/27/16 08:37 Dose: Not Given Polyethylene Glycol/Electrolytes (Golytely) 4,000 ml PO ONCE ONE Stop: 09/27/16 14:01 - Labs Labs: 09/27/16 09:50 09/27/16 09:50 PT 11.9 Seconds (9.9-11.8) H 09/26/16 07:00 INR 1.10 (0.93-1.08) H 09/26/16 07:00 APTT 24.2 Seconds (23.7-30.8) 09/25/16 12:58 Attending/Attestation - Attestation I have personally seen and examined this patient.: Yes I have fully participated in the care of the patient.: Yes I have reviewed all pertinent clinical information, including history, physical exam and plan: Yes Notes (Text): 09/27/16 12:22 Patient seen with GI fellow on rounds this am. This is a 61 year old male with PMHx significant for HTN who presented with progressive SOB, hypertensive urgency and iron deficiency anemia. He was scheduled for EGD/ colonoscopy today but did not take the prep. Bedside counselling done. Will schedule for tomorrow and keep on clear liquid diet. No overt bleeding. Team to control BP more aggressively. Discussed with the hospitalist
[2016-09-27] MEDS ORDERED: Potassium Chloride 20 mEq ER Tab PO ONE (11:59)
[2016-09-27] MEDS ORDERED: Peg-Electrolyte Oral Soln 4L (Golytely) PO ONE (14:00)
--- NOTE | 2016-09-27 16:45 | CARD ---
APPROVED REPORT EKG Measurement Heart [id number] <Conclusion> Normal sinus rhythm Possible Left atrial enlargement Possible Inferior infarct, age undetermined Marked T wave abnormality, consider anterolateral ischemia Prolonged QT Abnormal ECG
--- NOTE | 2016-09-27 17:53 | CP.PCM.PN ---
<Ramila Mendoza - Last Filed: 09/27/16 17:42> Subjective - Date & Time of Evaluation Date of Evaluation: 09/27/16 Time of Evaluation: 17:42 - Subjective Subjective: Pt seen and examined this morning. Pt says he is feeling better this morning, no complaints. Pt reported that he only drank 3 cups of the golytely because it made him nauseous. Objective - Vital Signs/Intake and Output Vital Signs (last 24 hours): Temp Pulse Resp BP Pulse Ox 97.9 F 68 20 149/77 99 09/27/16 07:30 09/27/16 14:09 09/27/16 07:30 09/27/16 14:09 09/27/16 07:30 Intake and Output: 09/27/16 09/27/16 06:59 18:59 Intake Total 620 480 Output Total 1000 Balance 620 -520 - Medications Medications: Current Medications Ferrous Sulfate (Feosol) 324 mg PO TID [facility] Hydralazine HCl (Apresoline) 10 mg IVP Q6 PRN PRN Reason: Systolic Blood Pressure Last Admin: 09/27/16 06:11 Dose: 10 mg Ceftriaxone Sodium (Rocephin 1 Gram Ivpb) 1 gm in 100 mls @ 100 mls/hr IVPB DAILY [facility] PRN Reason: Protocol Last Admin: 09/27/16 11:09 Dose: 100 mls/hr Lisinopril (Zestril) 20 mg PO DAILY [facility] Last Admin: 09/27/16 11:09 Dose: 20 mg Metoprolol Tartrate (Lopressor) 25 mg PO BRKDIN [facility] Last Admin: 09/27/16 08:38 Dose: 25 mg Pantoprazole Sodium (Protonix Ec Tab) 40 mg PO ACB [facility] Last Admin: 09/27/16 08:37 Dose: Not Given - Labs Labs: 09/27/16 09:50 09/27/16 09:50 PT 11.9 Seconds (9.9-11.8) H 09/26/16 07:00 INR 1.10 (0.93-1.08) H 09/26/16 07:00 APTT 24.2 Seconds (23.7-30.8) 09/25/16 12:58 - Constitutional Appears: Well, Non-toxic, No Acute Distress - Head Exam Head Exam: ATRAUMATIC, NORMOCEPHALIC - Eye Exam Eye Exam: EOMI, Normal appearance - Cardiovascular Exam Cardiovascular Exam: +S1, +S2. absent: JVD, Murmur - GI/Abdominal Exam GI & Abdominal Exam: Soft, Normal Bowel Sounds. absent: Tenderness - Neurological Exam Neurological Exam: Alert, Oriented x3 - Psychiatric Exam Psychiatric exam: Normal Affect Assessment and Plan - Assessment and Plan (Free Text) Assessment: 61yo M with symptomatic microcytic anemia, UTI, HTN, ischemia on EkG, b /l leg edema, chronic skin changes Plan: 1.Symptomatic microcytic anemia improved -Transfused 5U, HGB 10.1->10.6 MCV 76.4->77.4 -Ferritin 6.6 started iron supplementation -Positive occult blood pt on schedule for EGD/colonoscopy tomorrow per GI -Full liquid diet, NPO with meds after midnight C-olon prep with 4L golytely at 1400 2.UTI vs prostatis -Suprapubic tenderness on exam, given dilaudid 1mg x1 overnight for pain -Cont. rocephin (day 3) per ID -Void trial failed, cuday placed, 1000mL drained, urine is bravo in color -Blood cx neg x2d -Urology on consulted recs appreciated -Cont. Cleaning Cath 3.HTN - (improved) High 180s/80s overnight, 201/100 this morning, 149/77 after Lopressor 5mg IVp Add Lisinopril 20mg PO daily, cont. lopressor and hydralazine Cont to monitor BP TSH 1.52 Ischemia on EkG EkG 09/25 showed sinus tachycardia with possible PVCs, possible LV enlargement , ST depressions Serial trops neg x3 Echo 09/26 showed EF 55-60%, moderate concentric LV hypertrophy, trace aortic regurg, mild mitral stenosis, mild/mod aortic regurg, mild/mod tricuspid regurg, dilated IVC, trace pericardial edema Cleared for colonoscopy per cardio EkG (09/26) Normal Sinus Rhythm, Possible L atrial enlargement, Possible inferior infarct, age undetermined, Marked T wave abnormality, Prolonged QT 4.Leg edema - (improved) Trace edema present b/l Hep panel neg Echo 09/26 results see above 5.Chronic skin changes Stasis dermatitis vs autoimmune process HbA1c = 6 GANESH neg HIV neg Transaminitis resolved AST 35->30 ALT 53->41 ALk 191->177 Hep panel neg 6.Hypokalemia likely 2/2 lasix K 3.5->3.2 Potassium 40meq PO x1 given f/u k tomorrow 7.Darline improving Cr 1.3->1.1 8.GI PPX PTX - no DVT PPX 2/2 possible GI bleed <Della Antonio B - Last Filed: 09/28/16 17:29> Objective - Vital Signs/Intake and Output Vital Signs (last 24 hours): Temp Pulse Resp BP Pulse Ox 98.3 F 77 18 180/85 H 98 09/28/16 13:29 09/28/16 13:29 09/28/16 13:29 09/28/16 13:29 09/28/16 14:09 Intake and Output: 09/28/16 09/28/16 06:59 18:59 Intake Total 480 0 Output Total 250 300 Balance 230 -300 - Medications Medications: Current Medications Ferrous Sulfate (Feosol) 324 mg PO TID [facility] Last Admin: 09/28/16 13:29 Dose: Not Given Hydralazine HCl (Apresoline) 10 mg IVP Q6 PRN PRN Reason: Systolic Blood Pressure Last Admin: 09/27/16 19:40 Dose: 10 mg Ceftriaxone Sodium (Rocephin 1 Gram Ivpb) 1 gm in 100 mls @ 100 mls/hr IVPB DAILY [facility] PRN Reason: Protocol Last Admin: 09/28/16 09:55 Dose: 100 mls/hr Lisinopril (Zestril) 20 mg PO DAILY [facility] Last Admin: 09/28/16 09:54 Dose: 20 mg Lisinopril (Zestril) 30 mg PO DAILY [facility] Metoprolol Tartrate (Lopressor) 25 mg PO BRKDIN [facility] Last Admin: 09/28/16 08:14 Dose: 25 mg Pantoprazole Sodium (Protonix Ec Tab) 40 mg PO ACB [facility] Last Admin: 09/28/16 08:14 Dose: 40 mg - Labs Labs: 09/28/16 10:23 09/28/16 10:23 PT 11.9 Seconds (9.9-11.8) H 09/26/16 07:00 INR 1.10 (0.93-1.08) H 09/26/16 07:00 APTT 24.2 Seconds (23.7-30.8) 09/25/16 12:58 Attending/Attestation - Attestation I have personally seen and examined this patient.: Yes I have fully participated in the care of the patient.: Yes I have reviewed all pertinent clinical information, including history, physical exam and plan: Yes Notes (Text): I have seen and examined patient at bedside. Agree with the above note outlined by the resident with the following additions/ exceptions: Briefly this is 61 year old male with history of HTN, anemia, tobacco use who was admitted for dyspnea on exertion, orthopnea, LE swelling, palpitations, urinary frequency and generalized weakness and found to have symptomatic microcytic anemia, UTI, prostate enlargement and severely distended bladder Patient was given 5 units of prbc. He was initially scheduled for EGD/ colonoscopy however he is not properly prepped and also has uncontrolled hypertension therefore procedure is postponed. Continue Rocephin for UTI. F/U Urine culture. PSA is normal. Continue cleaning catheterization as UO was 4800 ml after cleaning was placed. Urologist recommended follow up with urologist as an outpatient. Patient had lateral ischemic changes on EKG. Echo revealed mild , mild to moderate MR and moderate pulmonary hypertension. Most likely symptoms are secondary to high output heart failure. Patient has chronic LE ulcers. Will recommend outpatient work up. Upon discharge patient will follow up in [facility] [place]. Dr Della Antonio
[2016-09-28] MEDS: Pantoprazole 40 mg EC Tab PO SCH (08:14)
[2016-09-28] MEDS: cefTRIAXone 1 gm 1 GM/100 ML BAG IVPB SCH (09:55)
[2016-09-28 10:38] LABS: ALB/GLOB RATIO 1.2 (1.1-1.8); ALBUMIN 3.3 g/dL (3.0-4.8); ALT/SGPT 40 U/L (7-56); AST/SGOT 23 U/L (15-59); BLOOD UREA NITROGEN 14 mg/dL (7-21); CALCIUM 8.7 mg/dL (8.4-10.5); GFR AFRICAN-AMERICAN > 60; GFR NON-AFRICAN AMERICAN > 60
[2016-09-28 10:41] LABS: BASO # 0.04 K/mm3 (0.0-2.0); BASO % 0.5 % (0.0-3.0); EOS # 0.2 (0.0-0.7); EOS % 2.5 % (1.5-5.0); GRAN # 6.35 (1.4-6.5); GRAN % 71.8 % (50.0-68.0); HEMOGLOBIN 9.6 gm/dL (14.0-18.0); LYMPH # 1.2 (1.2-3.4); LYMPH % 13.5 % (22.0-35.0); MEAN CELL VOLUME 77.8 fL (80.0-105.0); MEAN CORPUSCULAR HEMOGLOBIN 23.4 pg (25.0-35.0); MEAN CORPUSCULAR HGB CONC 30.1 g/dl (31.0-37.0); MEAN PLATELET VOLUME 10.5 fl (7.0-11.0); MONO % 11.7 % (1.0-6.0); PLATELET COUNT 234 10^3/uL (120.0-450.0); RED CELL DISTRIBUTION WIDTH 21.9 % (11.5-14.5); WHITE BLOOD COUNT 8.8 10^3/ul (4.5-11.0)
[2016-09-28] MEDS ORDERED: Lactated Ringer's 1,000 ML IV SCH (11:44)
[2016-09-28] MEDS ORDERED: Etomidate 20 mg/10ml Inj IV ONE ×2 (13:59→14:55)
[2016-09-28] MEDS ORDERED: Propofol 10 mg/ml Inj (20 ML) ONE ×2 (14:11→14:24)
--- NOTE | 2016-09-28 16:22 | CP.PCM.PN ---
<Ramila Mendoza - Last Filed: 09/28/16 16:19> Subjective - Date & Time of Evaluation Date of Evaluation: 09/28/16 Time of Evaluation: 16:19 - Subjective Subjective: Pt seen and examined this morning. Pt says he is feeling much better this morning, no complaints. Patient stated that he finished his prep. Denies Headache, dizziness, Chest Pain, SOB, and abdominal pain. Objective - Vital Signs/Intake and Output Vital Signs (last 24 hours): Temp Pulse Resp BP Pulse Ox 98.3 F 65 18 177/88 H 96 09/28/16 15:46 09/28/16 15:46 09/28/16 15:46 09/28/16 15:46 09/28/16 15:46 Intake and Output: 09/28/16 09/28/16 06:59 18:59 Intake Total 480 0 Output Total 250 300 Balance 230 -300 - Medications Medications: Current Medications Ferrous Sulfate (Feosol) 324 mg PO TID [facility] Last Admin: 09/28/16 13:29 Dose: Not Given Hydralazine HCl (Apresoline) 10 mg IVP Q6 PRN PRN Reason: Systolic Blood Pressure Last Admin: 09/27/16 19:40 Dose: 10 mg Ceftriaxone Sodium (Rocephin 1 Gram Ivpb) 1 gm in 100 mls @ 100 mls/hr IVPB DAILY [facility] PRN Reason: Protocol Last Admin: 09/28/16 09:55 Dose: 100 mls/hr Lisinopril (Zestril) 20 mg PO DAILY [facility] Last Admin: 09/28/16 09:54 Dose: 20 mg Lisinopril (Zestril) 30 mg PO DAILY [facility] Metoprolol Tartrate (Lopressor) 25 mg PO BRKDIN [facility] Last Admin: 09/28/16 08:14 Dose: 25 mg Pantoprazole Sodium (Protonix Ec Tab) 40 mg PO ACB [facility] Last Admin: 09/28/16 08:14 Dose: 40 mg - Labs Labs: 09/28/16 10:23 09/28/16 10:23 PT 11.9 Seconds (9.9-11.8) H 09/26/16 07:00 INR 1.10 (0.93-1.08) H 09/26/16 07:00 APTT 24.2 Seconds (23.7-30.8) 09/25/16 12:58 - Constitutional Appears: Well, Non-toxic, No Acute Distress - Head Exam Head Exam: ATRAUMATIC, NORMAL INSPECTION, NORMOCEPHALIC - Neck Exam Neck Exam: absent: Lymphadenopathy - Respiratory Exam Respiratory Exam: Clear to Ausculation Bilateral, NORMAL BREATHING PATTERN - Cardiovascular Exam Cardiovascular Exam: REGULAR RHYTHM, +S1, +S2. absent: Murmur - GI/Abdominal Exam GI & Abdominal Exam: Soft, Normal Bowel Sounds. absent: Tenderness - Neurological Exam Neurological Exam: Alert, Awake, Oriented x3 - Psychiatric Exam Psychiatric exam: Normal Affect, Normal Mood - Skin Additional comments: Multiple Psoriatic type lesions on anterior portion of lower Ext. Assessment and Plan - Assessment and Plan (Free Text) Assessment: 61yo M with symptomatic microcytic anemia, UTI, HTN, ischemia on EkG, b /l leg edema, chronic skin changes. 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 Patient will be monitored overnight Plan: 1.Symptomatic microcytic anemia improved -Transfused 5U on admission day -Ferritin 6.6 started iron supplementation -Positive occult blood; EGD/colonoscopy showed multiple AVMs -Monitor overnight 2.UTI vs prostatis -Suprapubic tenderness on exam, given dilaudid 1mg x1 overnight for pain -Cont. rocephin (day 4) per ID -Blood cx neg x3d -Urology on consulted recs appreciated -Cont. Cleaning Cath. Bladder is severely distended. Possibility of outpatient catheter and Uro F/U 3.HTN - (improved) Inc. Lisinopril from 20mg to 30mg. PO daily, cont. Lopressor and hydralazine PRN Cont to monitor BP EkG 09/25 showed sinus tachycardia with possible PVCs, possible LV enlargement , ST depressions Serial trops neg x3 Echo 09/26 showed EF 55-60%, moderate concentric LV hypertrophy, trace aortic regurg, mild mitral stenosis, mild/mod aortic regurg, mild/mod tricuspid regurg, dilated IVC, trace pericardial edema EkG (09/26) Normal Sinus Rhythm, Possible L atrial enlargement, Possible inferior infarct, age undetermined, Marked T wave abnormality, Prolonged QT 4.Leg edema - (improved) Trace edema present b/l Hep panel neg Echo 09/26 results see above 5.Chronic skin changes Stasis dermatitis vs autoimmune process HbA1c = 6 GANESH neg HIV neg Transaminitis resolved AST 35->30 ALT 53->41 ALk 191->177 Hep panel neg 6.Hypokalemia likely 2/2 lasix K 3.5->3.23.3 Potassium replaced f/u k tomorrow 7.Darline improving Cr 1.3->1.1 ->1.0 8.GI PPX PTX - no DVT PPX 2/2 possible GI bleed <Della Antonio B - Last Filed: 09/28/16 17:34> Objective - Vital Signs/Intake and Output Vital Signs (last 24 hours): Temp Pulse Resp BP Pulse Ox 98.2 F 66 20 192/93 H 96 09/28/16 16:00 09/28/16 17:16 09/28/16 16:00 09/28/16 17:16 09/28/16 16:00 Intake and Output: 09/28/16 09/28/16 06:59 18:59 Intake Total 480 0 Output Total 250 300 Balance 230 -300 - Medications Medications: Current Medications Ferrous Sulfate (Feosol) 324 mg PO TID [facility] Last Admin: 09/28/16 17:16 Dose: 324 mg Hydralazine HCl (Apresoline) 10 mg IVP Q6 PRN PRN Reason: Systolic Blood Pressure Last Admin: 09/28/16 16:39 Dose: 10 mg Ceftriaxone Sodium (Rocephin 1 Gram Ivpb) 1 gm in 100 mls @ 100 mls/hr IVPB DAILY [facility] PRN Reason: Protocol Last Admin: 09/28/16 09:55 Dose: 100 mls/hr Lisinopril (Zestril) 20 mg PO DAILY [facility] Last Admin: 09/28/16 09:54 Dose: 20 mg Lisinopril (Zestril) 30 mg PO DAILY [facility] Metoprolol Tartrate (Lopressor) 25 mg PO BRKDIN [facility] Last Admin: 09/28/16 17:16 Dose: 25 mg Pantoprazole Sodium (Protonix Ec Tab) 40 mg PO ACB [facility] Last Admin: 09/28/16 08:14 Dose: 40 mg - Labs Labs: 09/28/16 10:23 09/28/16 10:23 PT 11.9 Seconds (9.9-11.8) H 09/26/16 07:00 INR 1.10 (0.93-1.08) H 09/26/16 07:00 APTT 24.2 Seconds (23.7-30.8) 09/25/16 12:58 Attending/Attestation - Attestation I have personally seen and examined this patient.: Yes I have fully participated in the care of the patient.: Yes I have reviewed all pertinent clinical information, including history, physical exam and plan: Yes Notes (Text): I have seen and examined patient at bedside. Agree with the above note outlined by the resident with the following additions/ exceptions: Briefly this is 61 year old male with history of HTN, anemia, tobacco use who was admitted for dyspnea on exertion, orthopnea, LE swelling, palpitations, urinary frequency and generalized weakness and found to have symptomatic microcytic anemia, UTI, prostate enlargement and severely distended bladder. Patient was given 5 units of prbc. He was initially scheduled for EGD/ colonoscopy yesterday however he is not properly prepped and also had uncontrolled hypertension therefore procedure was postponed. He is scheduled for colonoscopy today. Continue Rocephin for UTI. Urine culture revealed coag negative staph. F/U sensitivities. PSA is normal. Continue cleaning catheterization as UO was 4800 ml after cleaning was placed. Urologist recommended follow up with urologist as an outpatient. Patient had lateral ischemic changes on EKG. Echo revealed mild , mild to moderate MR and moderate pulmonary hypertension. Most likely symptoms were secondary to high output heart failure. Currently he is comfortable and is in no distress. Patient has chronic LE ulcers. Will recommend outpatient work up. Upon discharge patient will follow up in [facility] [place]. Dr Della Antonio
[2016-09-28 17:16] VITALS: RESP 20
[2016-09-29] MEDS: Pantoprazole 40 mg EC Tab PO SCH (08:48)
--- NOTE | 2016-09-29 09:12 | CP.PCM.PN ---
<Gregory Nassar - Last Filed: 09/29/16 11:55> Subjective - Date & Time of Evaluation Date of Evaluation: 09/29/16 Time of Evaluation: 07:45 - Subjective Subjective: PGY5 GI Fellow Progress Note Patient seen and examined bedside this morning. The patient denies any rectal bleeding or abdominal pain overnight. Tolerated dinner/breakfast without issue. No complaints at this time. 12 system ROS performed and negative except where stated. Objective - Vital Signs/Intake and Output Vital Signs (last 24 hours): Temp Pulse Resp BP Pulse Ox 98.5 F 90 20 154/70 H 96 09/29/16 07:30 09/29/16 08:48 09/29/16 07:30 09/29/16 08:48 09/29/16 07:30 Intake and Output: 09/29/16 09/29/16 06:59 18:59 Intake Total 480 240 Balance 480 240 - Medications Medications: Current Medications Ferrous Sulfate (Feosol) 324 mg PO TID [facility] Last Admin: 09/28/16 17:16 Dose: 324 mg Hydralazine HCl (Apresoline) 10 mg IVP Q6 PRN PRN Reason: Systolic Blood Pressure Last Admin: 09/29/16 05:39 Dose: 10 mg Ceftriaxone Sodium (Rocephin 1 Gram Ivpb) 1 gm in 100 mls @ 100 mls/hr IVPB DAILY [facility] PRN Reason: Protocol Last Admin: 09/28/16 09:55 Dose: 100 mls/hr Lisinopril (Zestril) 30 mg PO DAILY [facility] Metoprolol Tartrate (Lopressor) 25 mg PO BRKDIN [facility] Last Admin: 09/29/16 08:48 Dose: 25 mg Pantoprazole Sodium (Protonix Ec Tab) 40 mg PO ACB [facility] Last Admin: 09/29/16 08:48 Dose: 40 mg - Labs Labs: 09/28/16 10:23 09/28/16 10:23 PT 11.9 Seconds (9.9-11.8) H 09/26/16 07:00 INR 1.10 (0.93-1.08) H 09/26/16 07:00 APTT 24.2 Seconds (23.7-30.8) 09/25/16 12:58 - Constitutional Appears: Non-toxic, No Acute Distress - Eye Exam Eye Exam: EOMI, PERRL - ENT Exam ENT Exam: Mucous Membranes Moist - Respiratory Exam Respiratory Exam: Clear to Ausculation Bilateral. absent: Rales, Rhonchi, Wheezes - Cardiovascular Exam Cardiovascular Exam: RRR, +S1, +S2 - GI/Abdominal Exam GI & Abdominal Exam: Soft, Normal Bowel Sounds. absent: Distended, Firm, Guarding, Rigid, Tenderness, Organomegaly - Extremities Exam Extremities Exam: Normal Inspection. absent: Pedal Edema - Neurological Exam Neurological Exam: Alert, Awake, Oriented x3 - Psychiatric Exam Psychiatric exam: Normal Affect, Normal Mood - Skin Skin Exam: Dry, Warm Assessment and Plan - Assessment and Plan (Free Text) Assessment: Patient is a 61 year old male with PMHx significant for HTN who presented with progressive SOB -Iron deficiency anemia; HGB of 4 on admission -Cecal/Ascending colon AVMs -Colon polyps -Hypertension Plan: -S/P 5 units PRBCs during this admission; awaiting AM CBC -S/P EGD/Colonoscopy - multiple AVMs not completely cauterized due to poor prep and difficulty with sedation during procedure -Multiple colon polyps noted, not removed due to poor visualization, poor prep -I have explained thoroughly the need for repeat colonoscopy and that if not removed, these colon polyps may have the potential for malignant transformation and the interval development of colon cancer - patient understands and agrees to outpatient follow up/colonoscopy -Diet as tolerated -OK to D/C from GI standpoint; will contact patient in the coming weeks for follow up <Ramone Boateng - Last Filed: 09/29/16 14:27> Objective - Vital Signs/Intake and Output Vital Signs (last 24 hours): Temp Pulse Resp BP Pulse Ox 98.5 F 90 20 138/76 96 09/29/16 07:30 09/29/16 08:48 09/29/16 07:30 09/29/16 13:11 09/29/16 07:30 Intake and Output: 09/29/16 09/29/16 06:59 18:59 Intake Total 480 540 Balance 480 540 - Medications Medications: Current Medications Ferrous Sulfate (Feosol) 324 mg PO TID [facility] Last Admin: 09/29/16 09:53 Dose: 324 mg Hydralazine HCl (Apresoline) 10 mg IVP Q6 PRN PRN Reason: Systolic Blood Pressure Last Admin: 09/29/16 05:39 Dose: 10 mg Lisinopril (Zestril) 40 mg PO DAILY [facility] Last Admin: 09/29/16 09:53 Dose: 40 mg Metoprolol Tartrate (Lopressor) 25 mg PO BRKDIN [facility] Last Admin: 09/29/16 08:48 Dose: 25 mg Pantoprazole Sodium (Protonix Ec Tab) 40 mg PO ACB [facility] Last Admin: 09/29/16 08:48 Dose: 40 mg Trimethoprim/Sulfamethoxazole (Bactrim Ds Tab) 1 tab PO BID [facility] PRN Reason: Protocol Last Admin: 09/29/16 09:53 Dose: 1 tab - Labs Labs: 09/29/16 11:08 09/29/16 11:08 PT 11.9 Seconds (9.9-11.8) H 09/26/16 07:00 INR 1.10 (0.93-1.08) H 09/26/16 07:00 APTT 24.2 Seconds (23.7-30.8) 09/25/16 12:58 Attending/Attestation - Attestation I have personally seen and examined this patient.: Yes I have fully participated in the care of the patient.: Yes I have reviewed all pertinent clinical information, including history, physical exam and plan: Yes Notes (Text): 09/29/16 14:19 I have seen and examined patient with GI fellow. No acute events overnight, he is seen resting in bed and appears comfortable, family present at bedside. He denies abdominal pain, nausea, vomiting, fever/chills. He had two bowel movements this morning without presence of gross bleeding. Tolerating PO diet without difficulty. Review of vitals from today shows elevated BP. HTN Iron deficiency anemia, symptomatic s/p EGD/colonoscopy showing multiple colonic AVMs (partially treated) and colon polyps (not resected due to poor bowel preparation) - H/H stable without ongoing overt bleeding noted, continue to monitor - Advance diet as tolerated - Patient would require repeat colonoscopy for further treatment of AVMs as well as resection of colon polyps following more optimal bowel preparation. This can be done electively as outpatient. No ongoing GI issues, will sign off case. Please reconsult as necessary, thank you.
[2016-09-29] MEDS ORDERED: Tmp-Smz 800 mg-160 mg DS Tab PO SCH (10:00)
[2016-09-29 11:14] LABS: BASO # 0.04 K/mm3 (0.0-2.0); BASO % 0.4 % (0.0-3.0); EOS # 0.3 (0.0-0.7); EOS % 3.4 % (1.5-5.0); GRAN # 7.27 (1.4-6.5); GRAN % 73.4 % (50.0-68.0); HEMOGLOBIN 9.9 gm/dL (14.0-18.0); LYMPH # 1.2 (1.2-3.4); LYMPH % 11.9 % (22.0-35.0); MEAN CELL VOLUME 79.3 fL (80.0-105.0); MEAN CORPUSCULAR HEMOGLOBIN 23.5 pg (25.0-35.0); MEAN CORPUSCULAR HGB CONC 29.6 g/dl (31.0-37.0); MEAN PLATELET VOLUME 10.7 fl (7.0-11.0); MONO # 1.1 (0.1-0.6); MONO % 10.9 % (1.0-6.0); PLATELET COUNT 253 10^3/uL (120.0-450.0); RBC 4.21 10^6/uL (3.5-6.1); RED CELL DISTRIBUTION WIDTH 23.3 % (11.5-14.5); WHITE BLOOD COUNT 9.9 10^3/ul (4.5-11.0)
[2016-09-29 11:21] LABS: ALB/GLOB RATIO 1.1 (1.1-1.8); ALBUMIN 3.4 g/dL (3.0-4.8); ALT/SGPT 31 U/L (7-56); AST/SGOT 36 U/L (15-59); BLOOD UREA NITROGEN 18 mg/dL (7-21); CALCIUM 8.5 mg/dL (8.4-10.5); GFR AFRICAN-AMERICAN > 60; GFR NON-AFRICAN AMERICAN > 60
[2016-09-29] MEDS ORDERED: Potassium Chloride 20 mEq ER Tab PO STA (11:26)
--- NOTE | 2016-09-29 11:28 | CP.PCM.DIS ---
<Ramila Mendoza - Last Filed: 09/29/16 16:55> Provider - Provider Date of Admission: 09/25/16 14:40 Attending physician: Della Antonio MD Primary care physician: NO PRIMARY CARE PROVIDER Consults: GI: Dr. Boateng Cardio: Dr. Lopez Uro: Dr. Ji Time Spent in preparation of Discharge (in minutes): 45 Hospital Course - Lab Results Lab Results: Micro Results 09/25/16 18:29 Urine,Clean Catch Urine Culture - Final Coagulase Neg Staphylococcus 09/25/16 22:00 Nose MRSA Culture (Admit) - Final MRSA NOT DETECTED Most Recent Lab Values WBC 9.9 10^3/ul (4.5-11.0) 09/29/16 11:08 RBC 4.21 10^6/uL (3.5-6.1) 09/29/16 11:08 Hgb 9.9 gm/dL (14.0-18.0) L 09/29/16 11:08 Hct 33.4 % (42.0-52.0) L 09/29/16 11:08 MCV 79.3 fL (80.0-105.0) L 09/29/16 11:08 MCH 23.5 pg (25.0-35.0) L 09/29/16 11:08 MCHC 29.6 g/dl (31.0-37.0) L 09/29/16 11:08 RDW 23.3 % (11.5-14.5) H 09/29/16 11:08 Plt Count 253 10^3/uL (120.0-450.0) 09/29/16 11:08 MPV 10.7 fl (7.0-11.0) 09/29/16 11:08 Gran % 73.4 % (50.0-68.0) H 09/29/16 11:08 Lymph % (Auto) 11.9 % (22.0-35.0) L 09/29/16 11:08 [place] % (Auto) 10.9 % (1.0-6.0) H 09/29/16 11:08 Eos % (Auto) 3.4 % (1.5-5.0) 09/29/16 11:08 Baso % (Auto) 0.4 % (0.0-3.0) 09/29/16 11:08 Gran # 7.27 (1.4-6.5) H 09/29/16 11:08 Lymph # 1.2 (1.2-3.4) 09/29/16 11:08 [place] # 1.1 (0.1-0.6) H 09/29/16 11:08 Eos # 0.3 (0.0-0.7) 09/29/16 11:08 Baso # 0.04 K/mm3 (0.0-2.0) 09/29/16 11:08 PT 11.9 Seconds (9.9-11.8) H 09/26/16 07:00 INR 1.10 (0.93-1.08) H 09/26/16 07:00 APTT 24.2 Seconds (23.7-30.8) 09/25/16 12:58 pO2 152 mm/Hg (30-55) H 09/25/16 20:20 VBG pH 7.46 (7.32-7.43) H 09/25/16 20:20 VBG pCO2 36.0 (40-60) L 09/25/16 20:20 VBG HCO3 25.6 mmol/l (21-28) 09/25/16 20:20 VBG Total CO2 26.7 mmol.L (22-28) 09/25/16 20:20 VBG O2 Sat (Calc) 99.8 % (40-65) H 09/25/16 20:20 VBG Base Excess 2.0 mmol/L (0.0-2.0) 09/25/16 20:20 VBG Potassium 4.5 mmol/L (3.6-5.2) 09/25/16 20:20 Sodium 141.0 mmol/L (132-148) 09/25/16 20:20 Chloride 113.0 mmol/L (98-107) H 09/25/16 20:20 Glucose 94 mg/dl (75-110) 09/25/16 20:20 Lactate 1.1 mmol/L (0.7-2.1) 09/25/16 20:20 FiO2 21.0 % 09/25/16 20:20 Sodium 140 mmol/L (132-148) 09/29/16 11:08 Potassium 3.5 mmol/L (3.6-5.0) L 09/29/16 11:08 Chloride 106 mmol/L (98-107) 09/29/16 11:08 Carbon Dioxide 25 mmol/L (21-33) 09/29/16 11:08 Anion Gap 13 (10-20) 09/29/16 11:08 BUN 18 mg/dL (7-21) 09/29/16 11:08 Creatinine 1.1 mg/dL (0.5-1.4) 09/29/16 11:08 Est GFR ( Amer) > 60 09/29/16 11:08 Est GFR (Non-Af Amer) > 60 09/29/16 11:08 Random Glucose 114 mg/dL (70-110) H 09/29/16 11:08 Hemoglobin A1c 6.0 % (4.2-6.5) 09/25/16 20:15 Calcium 8.5 mg/dL (8.4-10.5) 09/29/16 11:08 Iron 46 ug/dL (45-180) 09/25/16 20:20 TIBC 496 ug/dL (261-462) H 09/25/16 20:20 % Saturation 9 % (20-55) L 09/25/16 20:20 Transferrin 466.66 mg/dL (206-381) H 09/25/16 12:00 Ferritin 6.6 ng/mL 09/25/16 20:15 Total Bilirubin 0.7 mg/dL (0.2-1.3) 09/29/16 11:08 Direct Bilirubin 0.6 mg/dL (0.0-0.4) H 09/26/16 07:30 AST 36 U/L (15-59) 09/29/16 11:08 ALT 31 U/L (7-56) 09/29/16 11:08 Alkaline Phosphatase 111 U/L (38-133) 09/29/16 11:08 Lactate Dehydrogenase 493 U/L (333-699) 09/25/16 12:58 Total Creatine Kinase 98 U/L (35-230) 09/25/16 12:58 Troponin I < 0.01 ng/mL D 09/26/16 03:19 NT-Pro-B Natriuret Pep 2820 pg/mL (0-450) H 09/25/16 12:58 Total Protein 6.5 g/dL (5.8-8.3) 09/29/16 11:08 Albumin 3.4 g/dL (3.0-4.8) 09/29/16 11:08 Globulin 3.1 gm/dL 09/29/16 11:08 Albumin/Globulin Ratio 1.1 (1.1-1.8) 09/29/16 11:08 Triglycerides 102 mg/dL (35-160) 09/25/16 20:15 Cholesterol 116 mg/dL (130-200) L 09/25/16 20:15 LDL Cholesterol Direct 84 mg/dL (0-129) 09/25/16 20:15 HDL Cholesterol 17 mg/dL (29-60) L 09/25/16 20:15 Lipase 97 U/L (23-300) 09/25/16 12:58 Prostate Specific Ag 1.7 ng/mL (0.00-2.5) 09/26/16 11:30 Vitamin B12 535 pg/mL (239-931) 09/25/16 20:15 TSH 3rd Generation 1.52 mIU/mL (0.46-4.68) 09/25/16 20:15 Venous Blood Potassium 4.5 mmol/L (3.6-5.2) 09/25/16 20:20 Urine Color Yellow (YELLOW) 09/25/16 13:50 Urine Appearance Cloudy (CLEAR) 09/25/16 13:50 Urine pH 6.0 (4.7-8.0) 09/25/16 13:50 Ur Specific [place] 1.015 (1.005-1.035) 09/25/16 13:50 Urine Protein Trace mg/dL (<30 mg/dL) H 09/25/16 13:50 Urine Glucose (UA) Negative mg/dL (NEGATIVE) 09/25/16 13:50 Urine Ketones Negative mg/dL (NEGATIVE) 09/25/16 13:50 Urine Blood Negative (NEGATIVE) 09/25/16 13:50 Urine Nitrate Positive (NEGATIVE) H 09/25/16 13:50 Urine Bilirubin Negative (NEGATIVE) 09/25/16 13:50 Urine Urobilinogen 0.2 E.U./dL (<1 E.U./dL) 09/25/16 13:50 Ur Leukocyte Esterase Small Priyanka/uL (NEGATIVE) H 09/25/16 13:50 Urine RBC 0 - 2 /hpf (0-2) 09/25/16 13:50 Urine WBC 2 - 5 /hpf (0-6) 09/25/16 13:50 Ur Epithelial Cells 0 - 2 /hpf (0-5) 09/25/16 13:50 Urine Bacteria Many (NEG) 09/25/16 13:50 Urine Opiates Screen Negative (NEGATIVE) 09/25/16 18:29 Urine Methadone Screen Negative (NEGATIVE) 09/25/16 18:29 Ur Barbiturates Screen Negative (NEGATIVE) 09/25/16 18:29 Ur Phencyclidine Scrn Negative (NEGATIVE) 09/25/16 18:29 Ur Amphetamines Screen Negative (NEGATIVE) 09/25/16 18:29 U Benzodiazepines Scrn Negative (NEGATIVE) 09/25/16 18:29 U Oth Cocaine Metabols Negative (NEGATIVE) 09/25/16 18:29 U Cannabinoids Screen Negative (NEGATIVE) 09/25/16 18:29 Alcohol, Quantitative < 10 mg/dL (0-10) 09/25/16 12:35 GANESH Screen Negative (Negative) 09/25/16 20:15 Hepatitis A IgM Ab Negative (NEGATIVE) 09/25/16 20:15 Hep Bs Antigen Negative (NEGATIVE) 09/25/16 20:15 Hep B Core IgM Ab Negative (NEGATIVE) 09/25/16 20:15 Hepatitis C Antibody Negative (NEGATIVE) 09/25/16 20:15 HIV 1&2 Antibody Screen Negative (NEGATIVE) 09/25/16 20:15 Blood Type A POSITIVE 09/25/16 12:58 Blood Type Confirm A POSITIVE 09/25/16 13:53 Antibody Screen Negative 09/25/16 12:58 Crossmatch See Detail 09/25/16 12:58 BBK History Checked No verified bt 09/25/16 12:58 - Hospital Course Hospital Course: Patient is a 61 year old male with a PMH of HTN and medical non- complaince who presented with symptoms of fatigue x 1 week & SOB/Palpitations x 1 day. Patient also reported difficulty urinating for 3 months and dysuria. On admission patient's Hgb was 4.1. He was transfused a total of 5U PRBC. EKG on admission showed ST depressions on the anterolateral leads, and systolic pressures was in the 200's. His Htn was controlled, and then he was put on IV antibiotics for UTI treatment. His Echo showed normal LV function with an EF of 55-60%, mild concentric LV hypertrophy, mild aortic stenosis, and trace mitral regurgitations. CXR showed mild vascular congestion. CT Abd/Pelv showed an enlarged prostate and severely distended bladder. His systolic pressures continued to be high so lisonpril was added. Patient recieved EGD and colonoscopy during the stay which showed multiple AVM's with incomplete treatment (poor prep), multiple sessile polyps, and internal hemorrhoids. Patient at this time is hemodynamically stable. He is to go home with a urinary bag and follow up with Uro outpatient. He will also follow up with GI, and [facility] clinic. He was started on Bactrim for his UTI. He will also will be started on Iron supplementation, Lisinopril, Metoprolol Tartrate and Colace PRN. Patient is agreeable to plan and new medications. patient seen, reviewed, and discussed with Attending Ramila Mendoza PGY-1 - Date & Time of H&P Date of H&P: 09/29/16 Time of H&P: 16:57 Discharge Exam - Head Exam Head Exam: ATRAUMATIC, NORMAL INSPECTION, NORMOCEPHALIC - Eye Exam Eye Exam: EOMI, Normal appearance - ENT Exam ENT Exam: Mucous Membranes Moist - Neck Exam Additional comments: no cervical lymphadenopathy - Respiratory Exam Respiratory Exam: Clear to PA & Lateral. absent: Rales, Rhonchi, Wheezes - Cardiovascular Exam Cardiovascular Exam: RRR, +S1, +S2 - GI/Abdominal Exam GI & Abdominal Exam: Normal Bowel Sounds, Soft. absent: Tenderness - Extremities Exam Additional comments: no Pedal edema - Neurological Exam Neurological exam: Alert, Oriented x3 Discharge Plan - Discharge Medications Prescriptions: Docusate [Colace] 100 mg PO BID PRN #30 cap PRN Reason: Constipation Ferrous Sulfate [Feosol] 324 mg PO TID #90 ect Lisinopril [Zestril] 40 mg PO DAILY #30 tab Metoprolol Tartrate [Lopressor] 25 mg PO BRKDIN #60 tab Sulfamethoxazole/Trimethoprim [Bactrim DS Tab] 1 tab PO BID #20 tab - Follow Up Plan Condition: FAIR Disposition: HOME/ ROUTINE Instructions: How to Stop Smoking (DC), Hiatal Hernia (DC), Gastrointestinal Bleeding (DC), Benign Prostatic Hypertrophy (DC), Arteriovenous Malformation (DC ), Soft Diet (DC), Colorectal Polyps (DC), Chronic Hypertension (DC), Urinary Leg Bag (GEN) Additional Instructions: 1. Follow up with [facility] [place] in 1 week for blood pressure follow up. 2. Follow up with Dr. Ji, Urologist in on Sunday. 3. Take Lisinopril 40mg daily. Take Metoprolol 25mg twice per day. 4. Finish course of antibiotics for 10 days. 5. Take iron three times daily. Iron can cause constipation. Use colace if constipated. 6. Follow up GI clinic in 6-8 weeks for outpatient colonoscopy. Referrals: [facility] [place] PCP,ROOPA [Primary Care Provider] - Gerald Ji MD [Staff Provider] - <Della Antonio - Last Filed: 10/07/16 14:48> Provider - Provider Date of Admission: 09/25/16 14:40 Attending physician: Della Antonio MD Primary care physician: ROOPA PRIMARY CARE PROVIDER Hospital Course - Lab Results Lab Results: Micro Results 09/25/16 18:29 Urine,Clean Catch Urine Culture - Final Coagulase Neg Staphylococcus 09/25/16 22:00 Nose MRSA Culture (Admit) - Final MRSA NOT DETECTED Most Recent Lab Values WBC 9.9 10^3/ul (4.5-11.0) 09/29/16 11:08 RBC 4.21 10^6/uL (3.5-6.1) 09/29/16 11:08 Hgb 9.9 gm/dL (14.0-18.0) L 09/29/16 11:08 Hct 33.4 % (42.0-52.0) L 09/29/16 11:08 MCV 79.3 fL (80.0-105.0) L 09/29/16 11:08 MCH 23.5 pg (25.0-35.0) L 09/29/16 11:08 MCHC 29.6 g/dl (31.0-37.0) L 09/29/16 11:08 RDW 23.3 % (11.5-14.5) H 09/29/16 11:08 Plt Count 253 10^3/uL (120.0-450.0) 09/29/16 11:08 MPV 10.7 fl (7.0-11.0) 09/29/16 11:08 Gran % 73.4 % (50.0-68.0) H 09/29/16 11:08 Lymph % (Auto) 11.9 % (22.0-35.0) L 09/29/16 11:08 [place] % (Auto) 10.9 % (1.0-6.0) H 09/29/16 11:08 Eos % (Auto) 3.4 % (1.5-5.0) 09/29/16 11:08 Baso % (Auto) 0.4 % (0.0-3.0) 09/29/16 11:08 Gran # 7.27 (1.4-6.5) H 09/29/16 11:08 Lymph # 1.2 (1.2-3.4) 09/29/16 11:08 [place] # 1.1 (0.1-0.6) H 09/29/16 11:08 Eos # 0.3 (0.0-0.7) 09/29/16 11:08 Baso # 0.04 K/mm3 (0.0-2.0) 09/29/16 11:08 PT 11.9 Seconds (9.9-11.8) H 09/26/16 07:00 INR 1.10 (0.93-1.08) H 09/26/16 07:00 APTT 24.2 Seconds (23.7-30.8) 09/25/16 12:58 pO2 152 mm/Hg (30-55) H 09/25/16 20:20 VBG pH 7.46 (7.32-7.43) H 09/25/16 20:20 VBG pCO2 36.0 (40-60) L 09/25/16 20:20 VBG HCO3 25.6 mmol/l (21-28) 09/25/16 20:20 VBG Total CO2 26.7 mmol.L (22-28) 09/25/16 20:20 VBG O2 Sat (Calc) 99.8 % (40-65) H 09/25/16 20:20 VBG Base Excess 2.0 mmol/L (0.0-2.0) 09/25/16 20:20 VBG Potassium 4.5 mmol/L (3.6-5.2) 09/25/16 20:20 Sodium 141.0 mmol/L (132-148) 09/25/16 20:20 Chloride 113.0 mmol/L (98-107) H 09/25/16 20:20 Glucose 94 mg/dl (75-110) 09/25/16 20:20 Lactate 1.1 mmol/L (0.7-2.1) 09/25/16 20:20 FiO2 21.0 % 09/25/16 20:20 Sodium 140 mmol/L (132-148) 09/29/16 11:08 Potassium 3.5 mmol/L (3.6-5.0) L 09/29/16 11:08 Chloride 106 mmol/L (98-107) 09/29/16 11:08 Carbon Dioxide 25 mmol/L (21-33) 09/29/16 11:08 Anion Gap 13 (10-20) 09/29/16 11:08 BUN 18 mg/dL (7-21) 09/29/16 11:08 Creatinine 1.1 mg/dL (0.5-1.4) 09/29/16 11:08 Est GFR ( Amer) > 60 09/29/16 11:08 Est GFR (Non-Af Amer) > 60 09/29/16 11:08 Random Glucose 114 mg/dL (70-110) H 09/29/16 11:08 Hemoglobin A1c 6.0 % (4.2-6.5) 09/25/16 20:15 Calcium 8.5 mg/dL (8.4-10.5) 09/29/16 11:08 Iron 46 ug/dL (45-180) 09/25/16 20:20 TIBC 496 ug/dL (261-462) H 09/25/16 20:20 % Saturation 9 % (20-55) L 09/25/16 20:20 Transferrin 466.66 mg/dL (206-381) H 09/25/16 12:00 Ferritin 6.6 ng/mL 09/25/16 20:15 Total Bilirubin 0.7 mg/dL (0.2-1.3) 09/29/16 11:08 Direct Bilirubin 0.6 mg/dL (0.0-0.4) H 09/26/16 07:30 AST 36 U/L (15-59) 09/29/16 11:08 ALT 31 U/L (7-56) 09/29/16 11:08 Alkaline Phosphatase 111 U/L (38-133) 09/29/16 11:08 Lactate Dehydrogenase 493 U/L (333-699) 09/25/16 12:58 Total Creatine Kinase 98 U/L (35-230) 09/25/16 12:58 Troponin I < 0.01 ng/mL D 09/26/16 03:19 NT-Pro-B Natriuret Pep 2820 pg/mL (0-450) H 09/25/16 12:58 Total Protein 6.5 g/dL (5.8-8.3) 09/29/16 11:08 Albumin 3.4 g/dL (3.0-4.8) 09/29/16 11:08 Globulin 3.1 gm/dL 09/29/16 11:08 Albumin/Globulin Ratio 1.1 (1.1-1.8) 09/29/16 11:08 Triglycerides 102 mg/dL (35-160) 09/25/16 20:15 Cholesterol 116 mg/dL (130-200) L 09/25/16 20:15 LDL Cholesterol Direct 84 mg/dL (0-129) 09/25/16 20:15 HDL Cholesterol 17 mg/dL (29-60) L 09/25/16 20:15 Lipase 97 U/L (23-300) 09/25/16 12:58 Prostate Specific Ag 1.7 ng/mL (0.00-2.5) 09/26/16 11:30 Vitamin B12 535 pg/mL (239-931) 09/25/16 20:15 TSH 3rd Generation 1.52 mIU/mL (0.46-4.68) 09/25/16 20:15 Venous Blood Potassium 4.5 mmol/L (3.6-5.2) 09/25/16 20:20 Urine Color Yellow (YELLOW) 09/25/16 13:50 Urine Appearance Cloudy (CLEAR) 09/25/16 13:50 Urine pH 6.0 (4.7-8.0) 09/25/16 13:50 Ur Specific [place] 1.015 (1.005-1.035) 09/25/16 13:50 Urine Protein Trace mg/dL (<30 mg/dL) H 09/25/16 13:50 Urine Glucose (UA) Negative mg/dL (NEGATIVE) 09/25/16 13:50 Urine Ketones Negative mg/dL (NEGATIVE) 09/25/16 13:50 Urine Blood Negative (NEGATIVE) 09/25/16 13:50 Urine Nitrate Positive (NEGATIVE) H 09/25/16 13:50 Urine Bilirubin Negative (NEGATIVE) 09/25/16 13:50 Urine Urobilinogen 0.2 E.U./dL (<1 E.U./dL) 09/25/16 13:50 Ur Leukocyte Esterase Small Priyanka/uL (NEGATIVE) H 09/25/16 13:50 Urine RBC 0 - 2 /hpf (0-2) 09/25/16 13:50 Urine WBC 2 - 5 /hpf (0-6) 09/25/16 13:50 Ur Epithelial Cells 0 - 2 /hpf (0-5) 09/25/16 13:50 Urine Bacteria Many (NEG) 09/25/16 13:50 Urine Opiates Screen Negative (NEGATIVE) 09/25/16 18:29 Urine Methadone Screen Negative (NEGATIVE) 09/25/16 18:29 Ur Barbiturates Screen Negative (NEGATIVE) 09/25/16 18:29 Ur Phencyclidine Scrn Negative (NEGATIVE) 09/25/16 18:29 Ur Amphetamines Screen Negative (NEGATIVE) 09/25/16 18:29 U Benzodiazepines Scrn Negative (NEGATIVE) 09/25/16 18:29 U Oth Cocaine Metabols Negative (NEGATIVE) 09/25/16 18:29 U Cannabinoids Screen Negative (NEGATIVE) 09/25/16 18:29 Alcohol, Quantitative < 10 mg/dL (0-10) 09/25/16 12:35 GANESH Screen Negative (Negative) 09/25/16 20:15 Hepatitis A IgM Ab Negative (NEGATIVE) 09/25/16 20:15 Hep Bs Antigen Negative (NEGATIVE) 09/25/16 20:15 Hep B Core IgM Ab Negative (NEGATIVE) 09/25/16 20:15 Hepatitis C Antibody Negative (NEGATIVE) 09/25/16 20:15 HIV 1&2 Antibody Screen Negative (NEGATIVE) 09/25/16 20:15 Blood Type A POSITIVE 09/25/16 12:58 Blood Type Confirm A POSITIVE 09/25/16 13:53 Antibody Screen Negative 09/25/16 12:58 Crossmatch See Detail 09/25/16 12:58 BBK History Checked No verified bt 09/25/16 12:58 Attending/Attestation - Attestation I have personally seen and examined this patient.: Yes I have fully participated in the care of the patient.: Yes I have reviewed all pertinent clinical information, including history, physical exam and plan: Yes Notes (Text): I have seen and examined patient at bedside. Agree with the above note outlined by the resident with the following additions/ exceptions: Briefly this is 61 year old male with history of HTN, anemia, tobacco use who was admitted for dyspnea on exertion, orthopnea, LE swelling, palpitations, urinary frequency and generalized weakness and found to have symptomatic microcytic anemia, UTI, prostate enlargement and severely distended bladder. Patient was given 5 units of prbc. EGD and colonoscopy showed multiple AVM's with incomplete treatment (poor prep), multiple sessile polyps, and internal hemorrhoids. Patient was given Rocephin for UTI. Urine culture revealed coag negative staph. He will be sent home on antibiotics. PSA is normal. Continue cleaning catheterization as UO was 4800 ml after cleaning was placed. Urologist recommended follow up with urologist as an outpatient. Patient had lateral ischemic changes on EKG. Echo revealed mild , mild to moderate MR and moderate pulmonary hypertension. Most likely symptoms were secondary to high output heart failure. Currently he is comfortable and is in no distress. Patient has chronic LE ulcers. Will recommend outpatient work up. Upon discharge patient will follow up in [facility] and GI clinic. Dr Della Antonio
[2016-09-30 11:55] VITALS: BP 154/67; PULSE 79; TEMP 98.7; O2SAT 97
--- NOTE | 2016-10-03 14:39 | PQF CHF ---
10/03/16 Dr. Mari Antonio, CHF exacerbation is documented on consult of 09/[address] Chelle Viveros. Please indicate whether this is systolic, diastolic, or both. Thank you. Clarification of your documentation is requested to better reflect the severity of illness and intensity of treatment of your patient. Indicators present [] Diagnosis of CHF and/or history of CHF [x] BNP > 200 [x] Imaging Finding of Pulmonary Edema /Pleural Effusions [] Fluid/Volume Overload [] Pitting edema [] Ejection Fraction < 40% (Indicative of Systolic Heart Failure) [] Ejection Fraction > 40% (Indicative of Diastolic Heart Failure) [x] Dyspnea / Orthopenea / Paroxysmal Nocturnal Dyspnea [] Other: Location in the medical record that reflects the above clinical findings: [] Treatment Provided: [Blood transfusion for anemia] PHYSICIAN'S RESPONSE Based on your medical judgment of the clinical indicators outlined above, are you treating this patient for a known or suspected: [] Acute CHF [] Systolic [] Diastolic [] Combined [] Chronic CHF [] Systolic [] Diastolic [] Combined [] Acute on Chronic CHF []Systolic [] Diastolic [] Combined [] CHF due hypertension [] Acute systolic []Chronic systolic [] Acute/ chronic systolic [x] Other, please indicate: [High output heart failure] [] If Unable to Determine, please check the box, sign and date. Present On Admission (POA) Indicator: [x] Present at the time of admission [] Not present at the time of admission [] Clinically Undetermined In responding to this query, please exercise your independent professional judgment. The fact that a question is asked does not imply that any particular answer is desired or expected. Thank you for your clarification on this documentation. If you have any questions please call:[ ] * Thank you, [ ] clinical physician assistant JOSE MANUEL
== END 2016-09-29 17:39 | disposition home or self-care (01) | DRG 812 ==
LOC: ED 12:48 → ERH 14:40 → CCU 16:45 → 5RNO 09-26 16:09
PROVIDERS: ADMIT Internal Medicine; ATTEND Hospitalist
PROC: 30233N1 Transfusion of Nonautologous Red Blood Cells into Peripheral Vein, Percutaneous Approach (ICD-10-PCS; 2016-09-25)
PROC: 0D5E8ZZ Destruction of Large Intestine, Via Natural or Artificial Opening Endoscopic (ICD-10-PCS; 2016-09-28)
PROC: 0DB68ZX Excision of Stomach, Via Natural or Artificial Opening Endoscopic, Diagnostic (ICD-10-PCS; principal; 2016-09-28 14:30)
PROC: 0DB98ZX Excision of Duodenum, Via Natural or Artificial Opening Endoscopic, Diagnostic (ICD-10-PCS; 2016-09-28 14:30)
PROC: 0DBH8ZZ Excision of Cecum, Via Natural or Artificial Opening Endoscopic (ICD-10-PCS; 2016-09-28 14:30)
DX: D50.9 Iron deficiency anemia, unspecified (principal); I11.0 Hypertensive heart disease with heart failure; I27.2 Other secondary pulmonary hypertension; I50.9 Heart failure, unspecified; N39.0 Urinary tract infection, site not specified; L97.909 Non-pressure chronic ulcer of unspecified part of unspecified lower leg with unspecified severity; N13.8 Other obstructive and reflux uropathy; I16.0 Hypertensive urgency; I25.9 Chronic ischemic heart disease, unspecified; D12.0 Benign neoplasm of cecum; I08.0 Rheumatic disorders of both mitral and aortic valves; K59.00 Constipation, unspecified; K64.8 Other hemorrhoids; N40.1 Benign prostatic hyperplasia with lower urinary tract symptoms; Q27.33 Arteriovenous malformation of digestive system vessel; Z79.82 Long term (current) use of aspirin; Z87.891 Personal history of nicotine dependence; Z91.19 Patient's noncompliance with other medical treatment and regimen; K64.4 Residual hemorrhoidal skin tags; R40.2412 Glasgow coma scale score 13-15, at arrival to emergency department; N32.89 Other specified disorders of bladder; D12.2 Benign neoplasm of ascending colon; D12.4 Benign neoplasm of descending colon; D12.5 Benign neoplasm of sigmoid colon; K29.50 Unspecified chronic gastritis without bleeding; K44.9 Diaphragmatic hernia without obstruction or gangrene; B96.81 Helicobacter pylori [H. pylori] as the cause of diseases classified elsewhere; K29.80 Duodenitis without bleeding; B95.7 Other staphylococcus as the cause of diseases classified elsewhere

== ENCOUNTER 2016-10-07 16:07 | Emergency (ER) | payer MEDICAID, OTHER ==
[2016-10-07 16:21] VITALS: TEMP 98.8; BMI 29.3
--- NOTE | 2016-10-07 17:30 | ED PDOC ---
Arrival/HPI - General Chief Complaint: Male Genitourinary Time Seen by Provider: 10/07/16 16:45 - History of Present Illness Narrative History of Present Illness (Text): 10/07/16 17:24 Pt is a 61 year old male with a past medical history significant for anemia and urinary incontinence who presents to the emergency department with penile swelling after pulling out his indwelling cleaning catheter with balloon still inflated. The patient was recently discharged from [facility] on 09/29 after being treated for anemia and urinary retention with an indwelling cleaning catheter with instructions to follow up with a urologist. Pt reports he did not follow up with urologist. Following his discharge the patient began to notice an itching sensation and swelling of his penis. This AM the patient felt that pulling out the catheter would relieve his discomfort. When he pulled out the catheter he did notice a small amount of blood on the cleaning tubing. Patient denies ability to urinate since pulling out catheter. Denies any presence of blood coming from urethra or loss of feeling. (Dusty Bella) Past Medical History - Provider Review Nursing Documentation Reviewed: Yes - Infectious Disease Hx of Infectious Diseases: None - Cardiac Hx Hypertension: Yes - Pulmonary Hx Respiratory Disorders: No - Neurological Hx Neurological Disorder: No - HEENT Hx HEENT Disorder: No - Renal Hx Renal Disorder: No - Endocrine/Metabolic Hx Endocrine Disorders: No - Hematological/Oncological Hx Anemia: Yes Hx Blood Transfusions: Yes Hx Blood Transfusion Reaction: No - Integumentary Hx Dermatological Disorder: Yes Other/Comment: pt has multiple round brown spots on both lower legs. pt states they are a result of childhood illness. no broken or draining areas - Musculoskeletal/Rheumatological Hx Musculoskeletal Disorders: No Hx Falls: No - Gastrointestinal Hx Gastrointestinal Disorders: No - Genitourinary/Gynecological Hx Genitourinary Disorders: No - Psychiatric Hx Psychophysiologic Disorder: No Hx Substance Use: No - Surgical History Other/Comment: Colonoscopy - Anesthesia Hx Anesthesia: Yes Hx Anesthesia Reactions: No Hx Malignant Hyperthermia: No Family/Social History - Physician Review Nursing Documentation Reviewed: Yes Family/Social History: No Known Family HX Smoking Status: Current Some Days Smoker Hx Alcohol Use: Yes Hx Substance Use: No Allergies/Home Meds Allergies/Adverse Reactions: Allergies No Known Allergies Allergy (Verified 09/25/16 12:54) Review of Systems - Physician Review All systems were reviewed & negative as marked: Yes - Review of Systems Genitourinary Male: Other (unable to urinate ). absent: Hematuria Musculoskeletal: absent: Back Pain Physical Exam Vital Signs Reviewed: Yes Temperature: Afebrile Blood Pressure: Normal Pulse: Regular Respiratory Rate: Normal Appearance: Positive for: Well-Appearing Pain Distress: Mild Mental Status: Positive for: Alert and Oriented X 3 - Systems Exam Head: Present: Atraumatic, Normocephalic Pupils: Present: PERRL Extroacular Muscles: Present: EOMI Conjunctiva: Present: Normal Mouth: Present: Moist Mucous Membranes Respiratory/Chest: Present: Clear to Auscultation, Good Air Exchange. No: Respiratory Distress, Accessory Muscle Use Cardiovascular: Present: Regular Rate and Rhythm, Normal S1, S2. No: Murmurs Genitourinary Male: Present: Circumcised Penis, Penile Swelling. No: Penile Discharge, Testicle Tenderness, Erythema, Testicle Swelling Upper Extremity: Present: Normal Inspection. No: Cyanosis, Edema Lower Extremity: Present: Normal Inspection. No: Edema Neurological: Present: GCS=15, CN II-XII Intact, Speech Normal Skin: Present: Warm, Dry, Normal Color. No: Rashes Psychiatric: Present: Alert, Oriented x 3, Normal Insight, Normal Concentration Vital Signs Temp Pulse Resp BP Pulse Ox 10/07/16 18:02 97 H 18 114/78 98 10/07/16 16:19 98.8 F 103 H 18 112/75 98 Medical Decision Making - Lab Interpretations I have reviewed the lab results: Yes ED Course and Treatment: In agreement with resident note, which includes further HPI details. Patient was seen and evaluated with resident, came up with plan and treatment together. Pt, whose past medical history includes anemia and urinary incontinence, presented for penile swelling after removing Cleaning catheter. Plan: -- Labs -- Urinalysis -- Toradol -- Reassess and disposition (Jamison German DO) 10/07/16 17:32 Impression: Pt is a 61 year old male who presents to the emergency department complaining of penile pain and urinary retention after pulling out an indwelling cleaning catheter this AM. Differential Diagnosis included but are not limited to: - Penile swelling - Urethral tear - Urinary retention Plan: - Labs: CBC, CMP, Urinalysis - Meds: Toradol - Contact urologist Dr. Yahir Ji for further consultation - Reassess and disposition Progress Notes: 10/07/16 20:34 10/07/16 20:[address] Gerald Ji with urology. Recommendation at this time is to re -cath and discharge to home. Will plan for patient to follow up with urologist outpatient. 10/07/16 21:51 Pt was re-cathed and 650+ cc were evacuated. Plan to send patient home with urinary cath and leg bag with instructions to follow up with urologist. ( Dusty Bella) - Lab Interpretations Lab Results: 10/07/16 17:30 10/07/16 17:30 Lab Results 10/07/16 20:55: Urine Color Yellow, Urine Appearance Clear, Urine pH 6.0, Ur Specific [place] >= 1.030, Urine Protein >=300 H, Urine Glucose (UA) Negative, Urine Ketones Negative, Urine Blood Small H, Urine Nitrate Negative, Urine Bilirubin Negative, Urine Urobilinogen 0.2, Ur Leukocyte Esterase Negative, Urine RBC Pending, Urine WBC Pending 10/07/16 17:30: Sodium 137, Potassium 5.5 H, Chloride 101, Carbon Dioxide 21, Anion Gap 21 H, BUN 33 H, Creatinine 2.8 H, Est GFR ( Amer) 28, Est GFR ( Non-Af Amer) 23, Random Glucose 109, Calcium 9.7, Total Bilirubin 0.6, AST 44, ALT 92 H, Alkaline Phosphatase 163 H, Total Protein 7.4, Albumin 4.1, Globulin 3.3, Albumin/Globulin Ratio 1.2 10/07/16 17:30: WBC 11.7 H, RBC 4.74, Hgb 11.5 L, Hct 37.0 L, MCV 78.1 L, MCH 24.3 L, MCHC 31.1, RDW 24.0 H, Plt Count 428, MPV 10.1, Neutrophils % (Manual) 84 H, Lymphocytes % (Manual) 8 L, Monocytes % (Manual) 8 H, Platelet Evaluation Normal, Poikilocytosis (manual Slight, Anisocytosis (manual) Slight - Medication Orders Current Medication Orders: Discontinued Medications Ketorolac Tromethamine (Toradol) 30 mg IVP STAT STA Stop: 10/07/16 17:03 Last Admin: 10/07/16 17:25 Dose: 30 mg - PA / ASSEMBLER INSTALLER STRUCTURES / Resident Statement MD/DO has reviewed & agrees with the documentation as recorded. MD/DO has examined the patient and agrees with the treatment plan. Disposition/Present on Arrival - Present on Arrival Any Indicators Present on Arrival: No History of DVT/PE: No History of Uncontrolled Diabetes: No Urinary Catheter: No History of Decub. Ulcer: No History Surgical Site Infection Following: None - Disposition Have Diagnosis and Disposition been Completed?: Yes Disposition Time: 21:51 Patient Plan: Discharge - Disposition Diagnosis: Urinary retention Disposition: HOME/ ROUTINE Patient Problems: Current Active Problems Problem Status Onset Urinary retention Acute Condition: IMPROVED Discharge Instructions (ExitCare): Urinary Leg Bag (GEN), Cleaning Catheter Placement and Care (ED) Additional Instructions: Mr. Bonner, thank you for letting us take care of you today. Your provider was Dr. Bella. You were treated for urinary retention. The emergency medical care you received today was directed at your acute symptoms. If you were prescribed any medication, please fill it and take as directed. It may take several days for your symptoms to resolve. Return to the Emergency Department if your symptoms worsen, do not improve, or if you have any other problems. Please contact your doctor or call one of the physicians/clinics you have been referred to that are listed on the Patient Visit Information form that is included in your discharge packet. Bring any paperwork you were given at discharge with you along with any medications you are taking to your follow up visit. Our treatment cannot replace ongoing medical care by a primary care provider (PCP) outside of the emergency department. Thank you for allowing the [facility] team to be part of your care today. Follow up with urologist. Referrals: Gerald Ji MD [Staff Provider] - Follow up with primary Forms: [employer] (Urdu)
[2016-10-07 18:02] LABS: HEMOGLOBIN 11.5 gm/dL (14.0-18.0); MEAN CELL VOLUME 78.1 fL (80.0-105.0); MEAN CORPUSCULAR HEMOGLOBIN 24.3 pg (25.0-35.0); MEAN CORPUSCULAR HGB CONC 31.1 g/dl (31.0-37.0); MEAN PLATELET VOLUME 10.1 fl (7.0-11.0); PLATELET COUNT 428 10^3/uL (120.0-450.0); RBC 4.74 10^6/uL (3.5-6.1); WHITE BLOOD COUNT 11.7 10^3/ul (4.5-11.0)
[2016-10-07 18:10] LABS: ALB/GLOB RATIO 1.2 (1.1-1.8); ALBUMIN 4.1 g/dL (3.0-4.8); CALCIUM 9.7 mg/dL (8.4-10.5)
[2016-10-07 18:36] LABS: ANISOCYTOSIS SLIGHT; LYMPHOCYTE 8 % (22.0-35.0); MONOCYTE 8 % (1.0-6.0); NEUTROPHIL 84 % (50.0-70.0); PLATELET ESTIMATE NORMAL (NORMAL)
[2016-10-07 18:37] LABS: POIKILOCYTOSIS SLIGHT
[2016-10-07 21:13] LABS: URINE BILIRUBIN NEGATIVE (NEGATIVE); URINE BLOOD SMALL (NEGATIVE); URINE GLUCOSE (UA) NEGATIVE (NEGATIVE); URINE LEUKOCYTE ESTERASE NEGATIVE Leu/uL (NEGATIVE); URINE NITRATE NEGATIVE (NEGATIVE); URINE PROTEIN >=300 mg/dL (<30 mg/dL); URINE UROBILINOGEN 0.2 E.U./dL (<1 E.U./dL)
[2016-10-07 21:18] LABS: URINE APPEARANCE CLEAR (CLEAR); URINE COLOR YELLOW (YELLOW)
[2016-10-07 22:07] VITALS: BP 114/76; PULSE 80; RESP 16; O2SAT 99
== END 2016-10-07 22:07 | disposition home or self-care (01) ==
LOC: ED 16:07
DX: R33.9 Retention of urine, unspecified (principal)
CPT/HCPCS: 80053; 81001; 85025; 96374; 99285; J1885

== ENCOUNTER 2017-12-23 12:44 | Inpatient (IN) | payer OTHER ==
[2017-12-23 13:08] VITALS: BMI 28.1
[2017-12-23] MEDS ORDERED: Aspirin 325 mg EC Tablets PO STA (13:10)
--- NOTE | 2017-12-23 13:32 | ED PDOC ---
Arrival/HPI - General Chief Complaint: Shortness Of Breath Time Seen by Provider: 12/23/17 13:01 Historian: Patient - History of Present Illness Narrative History of Present Illness (Text): 12/23/17 13:29 62 year old male, whose past medical history includes hypertension and a prosthectomy, who presents to the Emergency department complaining of weakness and sob with exacerbation x 3 weeks. Patient notes associated intermittent leg pain with ambulation. Patient has had decreased appetite over the past 3 days. 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 Patient denies any fevers, chills, chest pain, abdominal pain, nausea, vomiting, diarrhea, back pain, neck pain, urinary symptoms, headache, dizziness, or any other complaint. PMD: Dr. Rincon Brush And Broom Clipper: Dr. Francois Time/Duration: < month (3 weeks) Symptom Onset: Gradual Symptom Course: Unchanged Activities at Onset: Light Context: Home Past Medical History - Provider Review Nursing Documentation Reviewed: Yes - Infectious Disease Hx of Infectious Diseases: None - Cardiac Hx Cardiac Disorders: Yes Hx Hypertension: Yes Hx Peripheral Edema: No - Pulmonary Hx Respiratory Disorders: No - Neurological Hx Neurological Disorder: No - HEENT Hx HEENT Disorder: No - Renal Hx Renal Disorder: No - Endocrine/Metabolic Hx Endocrine Disorders: No - Hematological/Oncological Hx Blood Disorders: Yes Hx Anemia: Yes Hx Blood Transfusions: Yes (04/2017;06/2017) Hx Blood Transfusion Reaction: No - Integumentary Hx Dermatological Disorder: Yes Other/Comment: pt has multiple round brown spots on both lower legs. pt states they are a result of childhood illness. no broken or draining areas - Musculoskeletal/Rheumatological Hx Musculoskeletal Disorders: No Hx Falls: No - Gastrointestinal Hx Gastrointestinal Disorders: No - Genitourinary/Gynecological Hx Genitourinary Disorders: Yes (RETENTION) Hx Prostate Problems: Yes Hx Urinary Tract Infection: Yes - Psychiatric Hx Psychophysiologic Disorder: No Hx Substance Use: No - Surgical History Other/Comment: Colonoscopy - Anesthesia Hx Anesthesia: Yes (UPPER BRIDGE IS LOOSE) Hx Anesthesia Reactions: No Hx Malignant Hyperthermia: No Family/Social History - Physician Review Nursing Documentation Reviewed: Yes Family/Social History: Unknown Family HX Smoking Status: Former Smoker Hx Alcohol Use: Yes (OCCASIONAL) Hx Substance Use: No Allergies/Home Meds Allergies/Adverse Reactions: Allergies No Known Allergies Allergy (Verified 09/18/17 09:37) Home Medications: Home Meds Medication Instructions Recorded Confirmed amLODIPine [Norvasc] 10 mg PO DAILY 09/14/17 12/23/17 cloNIDine [Catapres] 0.3 mg PO TID 09/14/17 12/23/17 Review of Systems - Physician Review All systems were reviewed & negative as marked: Yes - Review of Systems Constitutional: Fatigue Eyes: Normal ENT: Normal Respiratory: SOB Cardiovascular: Normal. absent: Chest Pain Gastrointestinal: Normal. absent: Abdominal Pain Genitourinary Male: Normal Musculoskeletal: Other (bilateral leg pain). absent: Back Pain, Neck Pain Skin: Normal. absent: Rash Neurological: Normal. absent: Headache, Dizziness Endocrine: Normal Hemo/Lymphatic: Normal Psychiatric: Normal Physical Exam Vital Signs Reviewed: Yes Vital Signs Temp Pulse Resp BP Pulse Ox 12/23/17 12:45 98.7 F 70 20 121/67 95 Temperature: Afebrile Blood Pressure: Normal Pulse: Regular Respiratory Rate: Normal Appearance: Positive for: Well-Appearing, Non-Toxic, Comfortable Pain Distress: None Mental Status: Positive for: Alert and Oriented X 3 - Systems Exam Head: Present: Atraumatic, Normocephalic Pupils: Present: PERRL Extroacular Muscles: Present: EOMI Conjunctiva: Present: Normal Mouth: Present: Moist Mucous Membranes Neck: Present: Normal Range of Motion Respiratory/Chest: Present: Clear to Auscultation, Good Air Exchange. No: Respiratory Distress, Accessory Muscle Use Cardiovascular: Present: Regular Rate and Rhythm, Normal S1, S2. No: Murmurs Abdomen: No: Tenderness, Distention, Peritoneal Signs Rectal: Present: Melena, Hemorrhoids (internal hemmoroids, non-thrombose) Back: Present: Normal Inspection Upper Extremity: Present: Normal Inspection. No: Cyanosis, Edema Lower Extremity: Present: Normal Inspection. No: Edema Neurological: Present: GCS=15, CN II-XII Intact, Speech Normal Skin: Present: Warm, Dry, Pale. No: Rashes Psychiatric: Present: Alert, Oriented x 3, Normal Insight, Normal Concentration Medical Decision Making ED Course and Treatment: 12/23/17 13:36 Impression: 62 year old male presents to the Emergency department complaining of weakness and sob with exertion x 3 weeks. Differential Diagnosis: CHF exacerbation vs. PE vs. electrolyte inbalance vs Anemia Plan: -- EKG -- Cardiac ISO -- D Dimer -- Chest X-ray -- Aspirin -- Reassess and disposition Progress Notes: EKG reviewed, shows NSR at 66 bpm. T wvae changes. Mild depression in V4, V5, V6. Similar to EKG from 09/25/16. 12/23/17 14:42 Hgb noted to be significantly low. Patient's records were reviewed even further with previous notes on severe anemia. Patient is unsure of causee. Rectal completed with noted +guaic. Added to physical exam notes. Dimer was sent initially because patient complained of pain in his calves b/l while walking and in this clinical picture we were reviewing for DVT. Physical exam was not consistent with DVT. No need for further ultrasound. Case discussed with Dr. Buckley, who is aware and agrees with plan. Accepts pt for ICU admission. Case discussed with Dr. Taylor, who accepts pt into the hospitalist service. 12/23/17 14:44 Dr. Hernandez was called for GI and he discussed the case with Dr. Taylor who then followed his recommendations. 12/23/17 14:48 Chest X-ray reviewed, shows: IMPRESSION: Mild cardiomegaly. Mild vascular congestion - Critical Care Critical Care Minutes: 60 minutes - RAD Interpretation Radiology Orders: 12/23/17 13:10 CHEST PORTABLE [RAD] Stat - Medication Orders Current Medication Orders: Discontinued Medications Aspirin (Ecotrin) 325 mg PO STAT STA Stop: 12/23/17 13:11 Last Admin: 12/23/17 13:23 Dose: 325 mg - Scribe Statement The provider has reviewed the documentation as recorded by the Shahriar Nava All medical record entries made by the Shahriar were at my direction and personally dictated by me. I have reviewed the chart and agree that the record accurately reflects my personal performance of the history, physical exam, me dical decision making, and the department course for this patient. I have also personally directed, reviewed, and agree with the discharge instructions and disposition. Disposition/Present on Arrival - Present on Arrival Any Indicators Present on Arrival: No History of DVT/PE: No History of Uncontrolled Diabetes: No Urinary Catheter: No History of Decub. Ulcer: No History Surgical Site Infection Following: None - Disposition Have Diagnosis and Disposition been Completed?: Yes Diagnosis: Symptomatic anemia, GI bleed Disposition: HOSPITALIZED Disposition Time: 14:19 Patient Plan: Admission, ICU Condition: CRITICAL
[2017-12-23 13:52] LABS: ALB/GLOB RATIO 1.4 (1.1-1.8)
[2017-12-23 13:56] LABS: ALBUMIN 3.9 g/dL (3.0-4.8); ALT/SGPT 29 U/L (7-56); AST/SGOT 21 U/L (17-59); BLOOD UREA NITROGEN 21 mg/dL (7-21); CALCIUM 9.1 mg/dL (8.4-10.5); GFR NON-AFRICAN AMERICAN 44
[2017-12-23 13:57] LABS: BASO % 0.3 % (0.0-3.0); EOS % 0.3 % (1.5-5.0); GRAN # 5.67 (1.4-6.5); LYMPH # 1.3 (1.2-3.4); LYMPH % 16.8 % (22.0-35.0); MEAN CELL VOLUME 72.3 fl (80.0-105.0); MEAN CORPUSCULAR HEMOGLOBIN 20.4 pg (25.0-35.0); MEAN CORPUSCULAR HGB CONC 28.2 g/dl (31.0-37.0); MEAN PLATELET VOLUME 9.1 fl (7.0-11.0); MONO % 9.4 % (1.0-6.0); RBC 2.06 10^6/uL (3.5-6.1); RED CELL DISTRIBUTION WIDTH 17.8 % (11.5-14.5); WHITE BLOOD COUNT 7.7 10^3/ul (4.5-11.0)
[2017-12-23 13:58] LABS: BASO # 0.02 K/mm3 (0.0-2.0); MONO # 0.7 (0.1-0.6)
[2017-12-23 14:01] LABS: B-TYPE NATRIURETIC PEPTIDE 6730 pg/mL (0-450); HEMOGLOBIN 4.2 g/dL (14.0-18.0)
[2017-12-23 14:05] LABS: TROPONIN I < 0.01 ng/mL
[2017-12-23 14:17] LABS: INR 1.13; PARTIAL THROMBOPLASTIN TIME 20.3 Seconds (25.1-36.5); PROTHROMBIN TIME 12.9 SECONDS (9.4-12.5)
--- NOTE | 2017-12-23 14:25 | RAD ---
Date of service: 12/23/2017 HISTORY: sob/cp COMPARISON: 09/25/2016 FINDINGS: LUNGS: No active pulmonary disease. PLEURA: No significant pleural effusion identified, no pneumothorax apparent. CARDIOVASCULAR: Mild cardiomegaly. Mild vascular congestion OSSEOUS STRUCTURES: No significant abnormalities. VISUALIZED UPPER ABDOMEN: Normal. OTHER FINDINGS: None. IMPRESSION: Mild cardiomegaly. Mild vascular congestion
--- NOTE | 2017-12-23 14:41 | CP.PCM.CON ---
<BoogieIván - Last Filed: 12/23/17 15:13> History of Present Illness - History of Present Illness History of Present Illness: Iván Hyman DO, PGY-1 ICU Consult Note for Dr. Andrews Patient is a 62 yo M with PMH of HTN, mild aortic stenosis, prior GI bleed from AVM, and BPH who presents to ED with worsening SOB and weakness. Patient states that the SOB has been occurring for the past 3 weeks but it has worsened over the past 3 days, prompting him to seek evaluation today. Patient also admits to intermittent leg pain that is worse with exertion and loss of appetite. Patient has seen signal operator technical in the past for management of LVH, aortic stenosis, and mitral regurgitation. Patient is found to have Hgb of 4.2 on admission today. Patient was admitted in September 2016 with very similar presentation, also with Hgb around 4 at the time. He was transfused 5 units of PRBCs during this visit. EGD and colonoscopy was performed at the time which showed multiple AVM's, multiple sessile polyps, and internal hemorrhoids. Patient denies any fevers, chills, chest pain, abdominal pain, nausea, vomiting, diarrhea, back pain, neck pain, urinary symptoms, headache, dizziness, or any other complaint. PMH: HTN, aortic stenosis, prior GI bleed from AVM, BPH Medications: Amlodipine 10 mg PO daily, clonidine 0.3 mg PO TID PSH: EGD, colonoscopy, no other relevant surgeries Fam Hx: non-contributory All: NKA PMD: Dr. Rincon Artificial Insemination Technician: Dr. Francois Pharmacy: [address] Review of Systems - Constitutional Constitutional: absent: Chills, Fever - EENT Eyes: absent: Blurred Vision - Cardiovascular Cardiovascular: Dyspnea, Lightheadedness, Rapid Heart Rate. absent: Chest Pain - Respiratory Respiratory: Dyspnea, Dyspnea on Exertion. absent: Cough - Gastrointestinal Gastrointestinal: absent: Abdominal Pain, Nausea, Vomiting - Genitourinary Genitourinary: absent: Change in Urinary Stream, Difficulty Urinating - Musculoskeletal Musculoskeletal: As Per HPI - Neurological Neurological: Disequilibrium Past Patient History - Infectious Disease Hx of Infectious Diseases: None - Past Medical History & Family History Past Medical History?: Yes - Past Social History Smoking Status: Former Smoker - CARDIAC Hx Cardiac Disorders: Yes Hx Hypertension: Yes Hx Peripheral Edema: No - PULMONARY Hx Respiratory Disorders: No - NEUROLOGICAL Hx Neurological Disorder: No - HEENT Hx HEENT Problems: No - RENAL Hx Chronic Kidney Disease: No - ENDOCRINE/METABOLIC Hx Endocrine Disorders: No - HEMATOLOGICAL/ONCOLOGICAL Hx Blood Disorders: Yes Hx Anemia: Yes Hx Blood Transfusions: Yes (04/2017;06/2017) Hx Blood Transfusion Reaction: No - INTEGUMENTARY Hx Dermatological Problems: Yes Other/Comment: pt has multiple round brown spots on both lower legs. pt states they are a result of childhood illness. no broken or draining areas - MUSCULOSKELETAL/RHEUMATOLOGICAL Hx Musculoskeletal Disorders: No Hx Falls: No - GASTROINTESTINAL Hx Gastrointestinal Disorders: No - GENITOURINARY/GYNECOLOGICAL Hx Genitourinary Disorders: Yes (RETENTION) Hx Prostate Problems: Yes Hx Urinary Tract Infection: Yes - PSYCHIATRIC Hx Psychophysiologic Disorder: No Hx Substance Use: No - SURGICAL HISTORY Other/Comment: Colonoscopy - ANESTHESIA Hx Anesthesia: Yes (UPPER BRIDGE IS LOOSE) Hx Anesthesia Reactions: No Hx Malignant Hyperthermia: No Meds Allergies/Adverse Reactions: Allergies Allergy/AdvReac Type Severity Reaction Status Date / Time No Known Allergies Allergy Verified 09/18/17 09:37 Physical Exam - Constitutional Appears: Non-toxic, No Acute Distress - Head Exam Head Exam: ATRAUMATIC, NORMAL INSPECTION - ENT Exam ENT Exam: Mucous Membranes Dry - Neck Exam Neck exam: Positive for: Full Rom - Respiratory Exam Respiratory Exam: Clear to Auscultation Bilateral, NORMAL BREATHING PATTERN. absent: Accessory Muscle Use, Rales, Rhonchi, Wheezes, Respiratory Distress - Cardiovascular Exam Cardiovascular Exam: REGULAR RHYTHM, RRR, +S1, +S2. absent: Diastolic murmur, Gallop, JVD, Rubs, Systolic Murmur - GI/Abdominal Exam GI & Abdominal Exam: absent: Distended, Guarding, Rebound, Tenderness - Extremities Exam Extremities exam: Positive for: full ROM - Back Exam Back exam: FULL ROM - Neurological Exam Neurological exam: Alert, Oriented x3 - Psychiatric Exam Psychiatric exam: Normal Affect, Normal Mood Results - Vital Signs Recent Vital Signs: Last Vital Signs Temp 98.7 F 12/23/17 12:45 Pulse 70 12/23/17 12:45 Resp 20 12/23/17 13:10 BP 121/67 12/23/17 12:45 Pulse Ox 95 12/23/17 12:45 - Labs Result Diagrams: 12/23/17 13:25 12/23/17 13:25 Labs: Laboratory Results - last 24 hr 12/23/17 12/23/17 12/23/17 13:25 13:25 13:25 WBC 7.7 D RBC 2.06 L Hgb 4.2 L* Hct 14.9 L* MCV 72.3 L MCH 20.4 L MCHC 28.2 L RDW 17.8 H Plt Count 265 MPV 9.1 Gran % 73.2 H Lymph % (Auto) 16.8 L Victoria % (Auto) 9.4 H Eos % (Auto) 0.3 L Baso % (Auto) 0.3 Gran # 5.67 Lymph # (Auto) 1.3 Victoria # (Auto) 0.7 H Eos # (Auto) 0.0 Baso # (Auto) 0.02 PT 12.9 H INR 1.13 APTT 20.3 L D-Dimer, Quantitative 292 H Sodium 137 Potassium 4.2 Chloride 107 Carbon Dioxide 19 L Anion Gap 15 BUN 21 Creatinine 1.6 H Est GFR ( Amer) 53 Est GFR (Non-Af Amer) 44 Random Glucose 113 H Calcium 9.1 Magnesium 2.1 Total Bilirubin 0.3 AST 21 ALT 29 Alkaline Phosphatase 108 Lactate Dehydrogenase 327 L Total Creatine Kinase 67 Troponin I < 0.01 NT-Pro-B Natriuret Pep 6730 H Total Protein 6.6 Albumin 3.9 Globulin 2.7 Albumin/Globulin Ratio 1.4 Assessment & Plan - Assessment and Plan (Free Text) Assessment: 62 yo M with PMH of HTN, aortic stenosis, prior GI bleed presents to ED with progressive SOB, weakness found to have Hgb of 4.1 from presumed GI bleed. He is admitted to ICU for further management. Plan: Neuro: -AAOx3, no FND, moving extremities past midline. -Monitor neuro status. -Reorient patient as necessary. Cardio: -RRR, normotensive, no signs of HD compromise -Maintain MAP>65 -Monitor for S/Sx, HD compromise Pulm: -No signs of respiratory distress. CTA B/L -Patient is stating well on room air. -Maintain O2 saturation>95%. -O2 NC PRN GI: -Patient with hx of GI bleed September 2016 -AVMs found on EGD/colonoscopy at that time were incompletely treated due to poor visualization -NPO -Protonix drip -GI consult Heme/Onc: -Type and cross match stat -CBC Q4h -Will transfuse 2 units, repeat CBC, transfuse until Hgb > 8 -Close monitoring of H/H in MICU /Nephro: -BUN/Cr stable -Monitor UOP -Maintain euvolemia -Replete electrolytes as needed Endocrine: -Maintain euglycemia ID: -Afebrile, no leukocytosis -Monitor for signs and symptoms of infection. Case and plan reviewed and discussed with my attending Dr. Darryl Hyman, DO IM Resident PGY-1 <Sourav Andrews - Last Filed: 12/23/17 15:20> Meds - Medications Medications: Current Medications Furosemide (Lasix) 40 mg IVP ONCE ONE Stop: 12/23/17 20:01 Pantoprazole Sodium (Protonix 40mg Ivpb) 40 mg in 100 mls @ 20 mls/hr IVPB .Q5H NAV Pantoprazole Sodium (Protonix Inj) 40 mg IVP DAILY NAV Results - Vital Signs Recent Vital Signs: Last Vital Signs Temp 98.7 F 12/23/17 12:45 Pulse 70 12/23/17 12:45 Resp 20 12/23/17 13:10 BP 109/59 L 12/23/17 15:10 Pulse Ox 95 12/23/17 12:45 - Labs Result Diagrams: 12/23/17 13:25 12/23/17 13:25 Labs: Laboratory Results - last 24 hr 12/23/17 12/23/17 12/23/17 13:25 13:25 13:25 WBC 7.7 D RBC 2.06 L Hgb 4.2 L* Hct 14.9 L* MCV 72.3 L MCH 20.4 L MCHC 28.2 L RDW 17.8 H Plt Count 265 MPV 9.1 Gran % 73.2 H Lymph % (Auto) 16.8 L Victoria % (Auto) 9.4 H Eos % (Auto) 0.3 L Baso % (Auto) 0.3 Gran # 5.67 Lymph # (Auto) 1.3 Victoria # (Auto) 0.7 H Eos # (Auto) 0.0 Baso # (Auto) 0.02 PT 12.9 H INR 1.13 APTT 20.3 L D-Dimer, Quantitative 292 H Sodium 137 Potassium 4.2 Chloride 107 Carbon Dioxide 19 L Anion Gap 15 BUN 21 Creatinine 1.6 H Est GFR ( Amer) 53 Est GFR (Non-Af Amer) 44 Random Glucose 113 H Calcium 9.1 Magnesium 2.1 Total Bilirubin 0.3 AST 21 ALT 29 Alkaline Phosphatase 108 Lactate Dehydrogenase 327 L Total Creatine Kinase 67 Troponin I < 0.01 NT-Pro-B Natriuret Pep 6730 H Total Protein 6.6 Albumin 3.9 Globulin 2.7 Albumin/Globulin Ratio 1.4 Assessment & Plan - Assessment and Plan (Free Text) Plan: Patient seen and examined on rounds with resident, agree with note with following additions/exceptions: Patient is 62yo with PMH of HTN, mild aortic stenosis, prior GI bleed from AVM, and BPH who presents to ED with worsening SOB and weakness. Found to have HH 4.2, afebrile, BP stable, comfortable in NAD, on room air o2 sat 98% patient reports he has been sob for 3 days. Denies melena, fever, chills, hematemesis, FERNANDEZ, dizziness. No other constitutional symptoms. Pt denies ASA, A/C use. GIB Anemia Hx AVMs Pulm HTN Recommend: - supp o2 as needed - duonebs PRN, IS - panculture, UCx, BCx, Check procal - NPO - transfuse 3u PRBC, goal HH >7 - PPI drip - GI eval - CT A/P without contrast - GI ppx - DVT ppx, SCDs - Admit to MICU
[2017-12-23] MEDS ORDERED: Iohexol 240 (50 ml) ONE (15:12)
[2017-12-23] MEDS: Sodium Chloride 0.9% 1,000 ML IV SCH (15:40)
[2017-12-23] MEDS: Pantoprazole 40mg/100mL NS 40 MG/100 ML BAG IVPB SCH ×2 (15:40→20:50)
--- NOTE | 2017-12-23 15:43 | CP.PCM.HP ---
History of Present Illness - History of Present Illness History of Present Illness: H&P for HospitalistChris PGY3 This is a 62yo male with past medical history of HTN, Iron deficiency anemia secondary to GI bleed from AVM, BPH who came in for shortness of breath for the past few weeks. Patient reports he has been having dyspnea on exertion and has been having dark colored stool. This has happened before about 1 year ago. He also states he has had some dizziness with loss of appetite. Patient denies chest pain, nausea/vomiting/diarrhea, fever/chills, numbness/tingling, dysuria, hematuria. Patient denies having any recent travel or sick contacts. In the ED, he was found to have Hgb of 4.6. He was admitted for this 1yr ago for similar symptoms. Patient had EGD and colonoscopy. He was found to have internal hemorrhoids, AVMs, and multiple sessile polyps. Past medical history: HTN, Iron deficiency anemia secondary to GI bleed from AVM, BPH, CKD IIIA, Past surgical history: EGD/Colonoscopy Home meds: Clonidine, Norvasc Allergies: NKDA Social history: Tobacco use, Occasional EtOH use, Denies drug use. Lives with family Family history: Dad- Alzheimers Present on Admission - Present on Admission Any Indicators Present on Admission: No Review of Systems - Review of Systems All systems: reviewed and no additional remarkable complaints except Review of Systems: 12 point ROS reviewed as per HPI and is otherwise negative Past Patient History - Infectious Disease Hx of Infectious Diseases: None - Past Medical History & Family History Past Medical History?: Yes - Past Social History Smoking Status: Former Smoker - CARDIAC Hx Cardiac Disorders: Yes Hx Hypertension: Yes Hx Peripheral Edema: No - PULMONARY Hx Respiratory Disorders: No - NEUROLOGICAL Hx Neurological Disorder: No - HEENT Hx HEENT Problems: No - RENAL Hx Chronic Kidney Disease: No - ENDOCRINE/METABOLIC Hx Endocrine Disorders: No - HEMATOLOGICAL/ONCOLOGICAL Hx Blood Disorders: Yes Hx Anemia: Yes Hx Blood Transfusions: Yes (04/2017;06/2017) Hx Blood Transfusion Reaction: No - INTEGUMENTARY Hx Dermatological Problems: Yes Other/Comment: pt has multiple round brown spots on both lower legs. pt states they are a result of childhood illness. no broken or draining areas - MUSCULOSKELETAL/RHEUMATOLOGICAL Hx Musculoskeletal Disorders: No Hx Falls: No - GASTROINTESTINAL Hx Gastrointestinal Disorders: No - GENITOURINARY/GYNECOLOGICAL Hx Genitourinary Disorders: Yes (RETENTION) Hx Prostate Problems: Yes Hx Urinary Tract Infection: Yes - PSYCHIATRIC Hx Psychophysiologic Disorder: No Hx Substance Use: No - SURGICAL HISTORY Other/Comment: Colonoscopy - ANESTHESIA Hx Anesthesia: Yes (UPPER BRIDGE IS LOOSE) Hx Anesthesia Reactions: No Hx Malignant Hyperthermia: No Meds Allergies/Adverse Reactions: Allergies Allergy/AdvReac Type Severity Reaction Status Date / Time No Known Allergies Allergy Verified 09/18/17 09:37 Physical Exam - Constitutional Appears: No Acute Distress - Head Exam Head Exam: ATRAUMATIC, NORMAL INSPECTION, NORMOCEPHALIC - Eye Exam Eye Exam: PERRL Pupil Exam: NORMAL ACCOMODATION, PERRL Additional comments: pale sclera - ENT Exam ENT Exam: Mucous Membranes Dry - Neck Exam Neck exam: Positive for: Normal Inspection. Negative for: Tenderness - Respiratory Exam Respiratory Exam: Clear to Auscultation Bilateral, NORMAL BREATHING PATTERN. absent: Rales, Rhonchi, Wheezes - Cardiovascular Exam Cardiovascular Exam: REGULAR RHYTHM, +S1, +S2. absent: Gallop, Rubs, Systolic Murmur - GI/Abdominal Exam GI & Abdominal Exam: Normal Bowel Sounds, Soft. absent: Rebound, Rigid, Tenderness - Extremities Exam Extremities exam: Positive for: normal inspection. Negative for: calf tenderness, pedal edema - Neurological Exam Neurological exam: Alert, CN II-XII Intact, Oriented x3 - Psychiatric Exam Psychiatric exam: Normal Affect, Normal Mood - Skin Skin Exam: Dry, Pallor, Warm Results - Vital Signs Recent Vital Signs: Last Vital Signs Temp 98.7 F 12/23/17 12:45 Pulse 70 12/23/17 12:45 Resp 20 12/23/17 13:10 BP 109/59 L 12/23/17 15:10 Pulse Ox 95 12/23/17 12:45 - Labs Result Diagrams: 12/23/17 13:25 12/23/17 13:25 Labs: Laboratory Results - last 24 hr 12/23/17 12/23/17 12/23/17 13:25 13:25 13:25 WBC 7.7 D RBC 2.06 L Hgb 4.2 L* Hct 14.9 L* MCV 72.3 L MCH 20.4 L MCHC 28.2 L RDW 17.8 H Plt Count 265 MPV 9.1 Gran % 73.2 H Lymph % (Auto) 16.8 L Snyder % (Auto) 9.4 H Eos % (Auto) 0.3 L Baso % (Auto) 0.3 Gran # 5.67 Lymph # (Auto) 1.3 Snyder # (Auto) 0.7 H Eos # (Auto) 0.0 Baso # (Auto) 0.02 PT 12.9 H INR 1.13 APTT 20.3 L D-Dimer, Quantitative 292 H Sodium 137 Potassium 4.2 Chloride 107 Carbon Dioxide 19 L Anion Gap 15 BUN 21 Creatinine 1.6 H Est GFR ( Amer) 53 Est GFR (Non-Af Amer) 44 Random Glucose 113 H Calcium 9.1 Magnesium 2.1 Total Bilirubin 0.3 AST 21 ALT 29 Alkaline Phosphatase 108 Lactate Dehydrogenase 327 L Total Creatine Kinase 67 Troponin I < 0.01 NT-Pro-B Natriuret Pep 6730 H Total Protein 6.6 Albumin 3.9 Globulin 2.7 Albumin/Globulin Ratio 1.4 Assessment & Plan - Assessment and Plan (Free Text) Assessment: 1. Symptomatic anemia - secondary to GI bleed - Hemoccult positive 2. TIM on CKD IIIA - secondary to dehydration/anemia 3. Pulm HTN - Echo showed mild , normal EF, RSVP 56 - can be secondary to tobacco abuse 4. Tobacco abuse Plan: Labs and imaging reviewed. Patient will be transfused 4U PRBC. He is on IV fluids and Protonix drip. GI is on consult. Will monitor Hgb and check iron studies. CT A/P pending. Patient BP low. Will hold BP meds. Repeat echo pending. Case seen, discussed and reviewed with Dr. Kuldeep Newman PGY3 - Date & Time Date: 12/23/17 Time: 16:01
[2017-12-23 15:56] LABS: GRAN % 73.2 % (50.0-68.0)
[2017-12-23 15:58] LABS: IRON 18 ug/dL (45-180)
[2017-12-23 16:07] LABS: % IRON SATURATION 4 % (20-55); TOTAL IRON BINDING CAPACITY 490 ug/dL (261-462)
--- NOTE | 2017-12-23 16:18 | CARD ---
APPROVED REPORT Date of service: 12/23/2017 EKG Measurement Heart [id number] <Conclusion> Normal sinus rhythm T wave abnormality, consider lateral ischemia Prolonged QT Abnormal ECG
[2017-12-24] MEDS: Pantoprazole 40mg/100mL NS 40 MG/100 ML BAG IVPB SCH ×4 (01:30→20:36)
[2017-12-24 02:58] LABS: MEAN CELL VOLUME 75.1 fl (80.0-105.0); MEAN CORPUSCULAR HEMOGLOBIN 23.3 pg (25.0-35.0); MEAN PLATELET VOLUME 9.4 fl (7.0-11.0); RBC 3.05 10^6/uL (3.5-6.1); RED CELL DISTRIBUTION WIDTH 18.6 % (11.5-14.5); WHITE BLOOD COUNT 7.1 10^3/ul (4.5-11.0)
[2017-12-24 03:02] LABS: HEMOGLOBIN 7.1 g/dL (14.0-18.0)
--- NOTE | 2017-12-24 03:32 | CON ---
DATE: 12/23/2017 HISTORY OF PRESENT ILLNESS: I saw Mr. Bonner, is a 62-year-old male with a past medical history of hypertension, aortic stenosis, prior episodes of anemia presumably due to GI bleed secondary to AVMs, admitted to the emergency room after increasing dyspnea on exertion over the past several weeks. Patient denied any chest pain or hematemesis. When asked about any rectal bleeding, patient indicated that several days per week, he would have brown stool with blood streaking other days during the week on a sporadic basis, would have black stool. He denied nausea and vomiting. Patient denied any abdominal pain as well. MEDICATIONS: Include clonidine and amlodipine. He is not on aspirin, nor did he take any NSAIDs. He is not on any blood thinners. PHYSICAL EXAMINATION: VITAL SIGNS: I reviewed this patient's vital signs. HEENT: Noncontributory. LUNGS: Decreased breath sounds, basilar. HEART: Irregular rhythm. ABDOMEN: Doughy, nontender in all quadrants. LABORATORY DATA: Reviewed this patient's laboratory data, the white count is 7.7 with an H and H of 4.2 and 14, the platelet count is 265. His INR is within normal limits. Chemistry indicative of iron level of 18 with a TIBC of 490. Biliary parameters are within normal limits. His B-natriuretic peptide 6730. Note that the patient's chest x-ray, it shows mild cardiomegaly and mild vascular congestion, but there is no effusion, no pneumothorax, no active pulmonary disease present. Note that, I reviewed the H and P as well as the consults noted in [facility]. OVERALL ASSESSMENT: This is a 62-year-old male with a history of anemia on a previous admission. Patient had an endoscopy performed back in 09/[address] Lentz. Reviewed endoscopy report. It appears he had no major etiologies for a bleed in the upper part of the esophagus or stomach or proximal small bowel. Review of the colonoscopy report indicated substantial number of angioectasias noted in the ascending colon as well as in the cecum. These were treated with Argon plasma coagulation therapy with fair results due to respiratory artifact and number of arteriovenous malformations. Note that, there was a positional issue since the patient had extremely redundant colon. These are several small polyps treated as well during that colonoscopy session. According to report, there are no other vascular abnormalities noted in the transverse to descending, sigmoid or rectum. Note that the patient has aortic stenosis, which may predispose him to develop these angiodysplasias. I discussed this case with Dr. Taylor. The patient is scheduled for an enteroscopy, EGD tomorrow only. The colon is problematic for the fact that the angiodysplasias are probably numerous and could be very large and treatment is at best suboptimal. Possible consideration is to avoid recurrent admissions due to arteriovenous malformation bleeding by iron replacement AVR surgery or if ineffective by a segmental colon resection. Further input in this case after the procedure tomorrow. Rell Hernandez DO, PhD MTDDwayne
[2017-12-24] MEDS: Sodium Chloride 0.9% 1,000 ML IV SCH ×2 (05:02→15:57)
[2017-12-24 07:48] LABS: ALB/GLOB RATIO 1.4 (1.1-1.8); ALT/SGPT 28 U/L (7-56); AST/SGOT 25 U/L (17-59); BLOOD UREA NITROGEN 18 mg/dL (7-21); GFR NON-AFRICAN AMERICAN 51
[2017-12-24 08:04] LABS: PROTHROMBIN TIME 12.5 SECONDS (9.4-12.5)
[2017-12-24 08:05] LABS: INR 1.09
--- NOTE | 2017-12-24 09:53 | PN ---
DATE: 12/24/2017 SUBJECTIVE: I saw Mr. Bonner this morning. He is a 62-year-old male, admitted yesterday with complaints of dyspnea on exertion and anemia. The patient has been known to have a noncontributory upper endoscopy in the later part of 2016. Colonoscopy performed during the same admission significant for diminutive polyps and multiple medium-sized angioectasias in the area of the cecum as well as the ascending colon. Argon coagulation of these lesions was attempted, but ineffectual since not all could be reached and there was significant respiratory artifact plus a redundant colon was found. The patient's count was found to be hemoglobin of 4 on admission. At the bedside this morning, the patient denied abdominal pain, but still has mild shortness of breath. H and H as of 2:30 this morning 10/07 after 3 units. The patient reported no rectal bleeding overnight or abdominal pain, nausea or vomiting. PHYSICAL EXAMINATION: VITAL SIGNS: I reviewed this patient's vital signs. HEENT: Noncontributory. LUNGS: Decreased breath sounds, basilar. HEART: Regular rhythm. ABDOMEN: Soft, doughy. No tenderness elicited in any quadrant. LABORATORY DATA: The patient's labs pending for this morning. ASSESSMENT AND PLAN: Overall assessment, a 62-year-old male, admitted with anemia, questionable etiology; however, chronic atrioventricular malformations in the area of cecum and ascending colon are highly suspect. The patient is scheduled for an upper endoscopy later on this morning. This will delineate if there is an upper gastrointestinal lesion responsive for his anemia. Pending results. We will discuss disposition of the colon atrioventricular malformations with the hospitalist after the procedure. Rell Hernandez DO, PhD JOSE MANUEL
[2017-12-24] MEDS ORDERED: Etomidate 20 mg/10ml Inj IV ONE (10:45)
[2017-12-24] MEDS ORDERED: Propofol 10 mg/ml Inj (20 ML) ONE (10:53)
[2017-12-24] MEDS ORDERED: Lidocaine 1% Inj (20ml) ONE (10:54)
[2017-12-24 12:10] LABS: BASO # 0.02 K/mm3 (0.0-2.0); BASO % 0.2 % (0.0-3.0); EOS # 0.1 (0.0-0.7); EOS % 0.8 % (1.5-5.0); GRAN # 6.72 (1.4-6.5); GRAN % 79.1 % (50.0-68.0); HEMOGLOBIN 7.7 g/dL (14.0-18.0); LYMPH # 0.8 (1.2-3.4); MEAN CELL VOLUME 74.8 fl (80.0-105.0); MEAN CORPUSCULAR HEMOGLOBIN 23.7 pg (25.0-35.0); MEAN CORPUSCULAR HGB CONC 31.7 g/dl (31.0-37.0); MEAN PLATELET VOLUME 9.9 fl (7.0-11.0); MONO # 0.9 (0.1-0.6); MONO % 10.9 % (1.0-6.0); RBC 3.25 10^6/uL (3.5-6.1); RED CELL DISTRIBUTION WIDTH 18.1 % (11.5-14.5); WHITE BLOOD COUNT 8.5 10^3/ul (4.5-11.0)
--- NOTE | 2017-12-24 14:31 | CT ---
Date of service: 12/23/2017 PROCEDURE: CT Abdomen and Pelvis without intravenous contrast HISTORY: anemia,h/o colon polyp COMPARISON: 09/25/2016 TECHNIQUE: Without contrast.. Contrast dose: 0 Radiation dose: Total exam DLP = 375.49 mGy-cm. This CT exam was performed using one or more of the following dose reduction techniques: Automated exposure control, adjustment of the mA and/or kV according to patient size, and/or use of iterative reconstruction technique. FINDINGS: LOWER THORAX: Right lower lobe infiltrate, likely pneumonia. Small infiltrate also seen in the lateral segment of the right middle lobe.. Coarse nodular calcification in lingular segment left upper lobe, possibly granulomatous. Additional small calcified granulomas noted in right lower lobe. LIVER: Unremarkable. No gross lesion or ductal dilatation. GALLBLADDER AND BILE DUCTS: Unremarkable. PANCREAS: Unremarkable. No gross lesion or ductal dilatation. SPLEEN: Unremarkable. ADRENALS: Unremarkable. No mass. KIDNEYS AND URETERS: Unremarkable. No hydronephrosis. No solid mass. VASCULATURE: Unremarkable. No aortic aneurysm. BOWEL: Mild retained stool. No bowel obstruction. No abnormal bowel loops. APPENDIX: Unremarkable. Normal appendix. PERITONEUM: Unremarkable. No free fluid. No free air. LYMPH NODES: Unremarkable. No enlarged lymph nodes. BLADDER: Unremarkable. REPRODUCTIVE: Normal prostate BONES: No acute fracture. OTHER FINDINGS: None. IMPRESSION: Right lower lobe and right middle lobe infiltrate. See above. Old granulomatous disease. Mild retained stool. Otherwise unremarkable. The preliminary findings for this examination were reported by [facility] at 5:46 p.m. on 12/23/2017. There is concurrence of this report with the preliminary findings.
--- NOTE | 2017-12-24 15:55 | PN ---
DATE: 12/24/2017 SUBJECTIVE: The patient is seen and examined at bedside. He is comfortable. He just returned from [facility] where he had an EGD, which revealed multiple AVMs, but no active bleed. The patient was cleared to proceed with clear liquid diet, which he has enjoyed. Alert, awake, oriented x3. Maintained thoughtful conversation. Comfortable. PHYSICAL EXAMINATION: VITAL SIGNS: Temperature 97.9, blood pressure 131/70, oxygen saturation 100% on 2 L nasal cannula. ENT: Head and neck atraumatic. LUNGS: Clear to auscultation bilaterally. HEART: Regular rate and rhythm. S1 and S2 normal. ABDOMEN: Soft, nontender and nondistended. MUSCULOSKELETAL: No C/C/E. NEURO: The patient moves all extremities spontaneously. SKIN: Moist. PSYCH: The patient is alert, awake and oriented x3. LABORATORY DATA: WBC 8.5, hemoglobin 7.7, platelet count 239. Sodium 139; potassium 4.2; chloride 108; carbon dioxide 19; BUN 18; creatinine 1.4, down from 1.6; glucose 95; total bilirubin 1.7; AST 25; ALT 28. INR 1.09. MEDICATIONS: Aspirin, Protonix drip, normal saline 100 mL/hour. ASSESSMENT AND PLAN: This is a 62-year-old gentleman, who presented with upper gastrointestinal bleed due to arteriovenous malformations, which (GI bleed) resolved now. The patient is hemodynamically stable, appropriately responded to blood transfusion. Enjoying his lunch. He was cleared by GI for clear liquids. Okay to downgrade to Med-Surg (discussed with Dr. Hernandez (GI Service)). We will continue to target euvolemia, euglycemia, normothermia and oxygen saturation more than 90%. We will continue with deep venous thrombosis, gastrointestinal prophylaxes. ccm time 40 min Akhil Calabrese MD MTDD
--- NOTE | 2017-12-24 16:20 | CARD ---
APPROVED REPORT Date of service: 12/24/2017 EXAM: Two-dimensional and M-mode echocardiogram with Doppler and color Doppler. INDICATION LV Function:SystolicDiastolic 2D DIMENSIONS Left Atrium (2D)4.7 (1.6-4.0cm)IVSd1.8 (0.7-1.1cm) LVDd4.9 (3.9-5.9cm)PWd1.4 (0.7-1.1cm) LVDs3.3 (2.5-4.0cm)FS (%) 33.0 % LVEF (%)61.2 (>50%) M-Mode DIMENSIONS Aortic Root3.70 (2.2-3.7cm)Aortic Cusp Exc.1.40 (1.5-2.0cm) Aortic Valve AoV Peak Sddhalro840.0cm/sAoV VTI53.9cmAO Peak GR.28mmHg LVOT Peak Qthmawnd079.0cm/sLVOT VTI30.60cmAO Mean GR.14mmHg Mitral Valve MV E Sftvomrr009.0cm/sMV A Lixqvllu827.0cm/sMV [id number] E/A ratio1.3MVA (PHT)2.10cm2 TDI Lateral E' Peak V13.40cm/sMedial E' Peak V5.95cm/sE/Lateral E'10.0 E/Medial E'22.5 Tricuspid Valve TR Peak Tzqolqdk298dr/sRAP LTCHVCHB61tlGfQS Peak Gr.28mmHg [id number] LEFT VENTRICLE The left ventricle is normal size. There is moderate concentric left ventricular hypertrophy. The left ventricular function is normal. The left ventricular ejection fraction is within the normal range.LV Ej.Fr: 60-65% RIGHT VENTRICLE The right ventricle is normal size. The right ventricular systolic function is normal. ATRIA The left atrium is mildly dilated. The right atrium size is normal. AORTIC VALVE AQortic Valve Calcified. Aortic Sclerosis. In some views Aortic Valve Shows Mild Stenosis. Max Pr.Gradient 28mm Hg. MITRAL VALVE The mitral valve is normal in structure. Mitral regurgitation is mild. TRICUSPID VALVE The tricuspid valve is normal in structure. There is mild tricuspid regurgitation. PERICARDIAL EFFUSION Very Small Posterior Pericardial Effusion. <Conclusion> The left ventricle is normal size. There is moderate concentric left ventricular hypertrophy. The left ventricular function is normal. The left ventricular ejection fraction is within the normal range.LV Ej.Fr: 60-65% The right ventricle is normal size. The right ventricular systolic function is normal. The left atrium is mildly dilated. The right atrium size is normal. Aortic Valve Calcified. Aortic Sclerosis/ In some views Aortic Valve Shows Mild Stenosis. Max Pr.Gradient 28mm Hg. The mitral valve is normal in structure. Mitral regurgitation is mild. The tricuspid valve is normal in structure. There is mild tricuspid regurgitation. RVSP 38mm Hg.Very Mild Pulmonary Hypertension. Very Small Posterior Pericardial Effusion.
[2017-12-24 19:35] LABS: BASO # 0.04 K/mm3 (0.0-2.0); BASO % 0.4 % (0.0-3.0); EOS # 0.1 (0.0-0.7); EOS % 1.2 % (1.5-5.0); GRAN # 7.32 (1.4-6.5); GRAN % 74.6 % (50.0-68.0); HEMOGLOBIN 8.2 g/dL (14.0-18.0); LYMPH # 1.4 (1.2-3.4); LYMPH % 14.3 % (22.0-35.0); MEAN CELL VOLUME 75.4 fl (80.0-105.0); MEAN CORPUSCULAR HEMOGLOBIN 23.4 pg (25.0-35.0); MEAN CORPUSCULAR HGB CONC 31.1 g/dl (31.0-37.0); MEAN PLATELET VOLUME 10.6 fl (7.0-11.0); MONO # 0.9 (0.1-0.6); MONO % 9.5 % (1.0-6.0); RBC 3.5 10^6/uL (3.5-6.1); RED CELL DISTRIBUTION WIDTH 18.3 % (11.5-14.5); WHITE BLOOD COUNT 9.8 10^3/ul (4.5-11.0)
[2017-12-25] MEDS: Pantoprazole 40mg/100mL NS 40 MG/100 ML BAG IVPB SCH ×3 (01:08→13:30)
[2017-12-25] MEDS: Sodium Chloride 0.9% 1,000 ML IV SCH ×2 (01:11→23:14)
[2017-12-25 02:46] LABS: BASO # 0.02 K/mm3 (0.0-2.0); BASO % 0.2 % (0.0-3.0); EOS # 0.1 (0.0-0.7); EOS % 1.4 % (1.5-5.0); GRAN # 6.09 (1.4-6.5); GRAN % 72.7 % (50.0-68.0); HEMOGLOBIN 8.2 g/dL (14.0-18.0); LYMPH # 1.2 (1.2-3.4); LYMPH % 14.4 % (22.0-35.0); MEAN CORPUSCULAR HEMOGLOBIN 23.6 pg (25.0-35.0); MEAN CORPUSCULAR HGB CONC 31.4 g/dl (31.0-37.0); MEAN PLATELET VOLUME 9.3 fl (7.0-11.0); MONO % 11.3 % (1.0-6.0); RBC 3.48 10^6/uL (3.5-6.1); RED CELL DISTRIBUTION WIDTH 18.4 % (11.5-14.5); WHITE BLOOD COUNT 8.4 10^3/ul (4.5-11.0)
--- NOTE | 2017-12-25 03:05 | CON ---
DATE: 12/24/2017 CARDIOLOGY CONSULTATION HISTORY OF PRESENT ILLNESS: The patient is a 62-year-old male, who has history of hypertension and history of anemia that required packed RBC transfusion in the past. Lower endoscopy was consistent with AVMs. The patient presented with shortness of breath and weakness for the past three weeks. The patient denies any history of heart attack in the past. SOCIAL HISTORY: Patient is a nonsmoker. PAST MEDICAL HISTORY: History of anemia that required packed RBC transfusion in the past, history of AVMs, and history of prostatectomy. MEDICATIONS: Patient is on normal saline 100 mL an hour, Protonix 40 mg intravenously every 5 hours. PHYSICAL EXAMINATION: GENERAL: The patient is a middle-aged male who does not appear to be in acute distress. VITAL SIGNS: Blood pressure 142/65, heart rate 63, temperature 98.3, respirations 20. HEENT: Pale conjunctivae. CHEST: Clear. HEART: S1, S2 regular. ABDOMEN: Soft. EXTREMITIES: No edema. LABORATORY DATA: Initial hemoglobin and hematocrit on admission was 4.2 and 14.9 respectively and after 3 units of packed RBC transfusion, the hemoglobin and hematocrit improved to 7.7 and 24.2 respectively. White count and platelet count are within normal limit. INR is 1.13. PTT 20.3. D-dimer is 292. SMA-7 today, sodium 139, potassium 4.2, chloride 108, CO2 of 19, glucose 95, BUN 18, creatinine 1.4. ProBNP is 6730. EKG revealed sinus rhythm, prolonged QT interval, consider lateral ischemic ST-T wave changes. One set of troponin is negative. ASSESSMENT: 1. Severe anemia. 2. Ischemic lateral ST-T wave changes with represent diffuse endocardial ischemia related to the patient's severe anemia other than to a specific coronary artery disease. 3. History of gastrointestinal bleeding. 4. Iron deficiency. RECOMMENDATIONS: I did review the upper endoscopy that was performed today, which revealed esophageal ulcer, gastritis, duodenitis, and antral erosion with multiple nonbleeding angioectasias in the duodenum. From now, continue current IV Protonix and normal saline infusion. No antiplatelets or anticoagulation is justified. At this time, I will review the echocardiography study that was performed today. Antoni Lopez MD [facility] # [id number]
[2017-12-25 07:17] LABS: BASO # 0.02 K/mm3 (0.0-2.0); BASO % 0.2 % (0.0-3.0); EOS # 0.1 (0.0-0.7); EOS % 1.6 % (1.5-5.0); GRAN # 6.15 (1.4-6.5); GRAN % 71.8 % (50.0-68.0); HEMOGLOBIN 7.7 g/dL (14.0-18.0); LYMPH # 1.4 (1.2-3.4); LYMPH % 15.7 % (22.0-35.0); MEAN CELL VOLUME 75.2 fl (80.0-105.0); MEAN CORPUSCULAR HEMOGLOBIN 23.6 pg (25.0-35.0); MEAN CORPUSCULAR HGB CONC 31.4 g/dl (31.0-37.0); MEAN PLATELET VOLUME 9.5 fl (7.0-11.0); MONO # 0.9 (0.1-0.6); MONO % 10.7 % (1.0-6.0); RBC 3.26 10^6/uL (3.5-6.1); RED CELL DISTRIBUTION WIDTH 18.3 % (11.5-14.5); WHITE BLOOD COUNT 8.6 10^3/ul (4.5-11.0)
[2017-12-25 07:36] LABS: ALB/GLOB RATIO 1.1 (1.1-1.8); ALBUMIN 3.1 g/dL (3.0-4.8); ALT/SGPT 22 U/L (7-56); AST/SGOT 20 U/L (17-59); BLOOD UREA NITROGEN 11 mg/dL (7-21); CALCIUM 8.2 mg/dL (8.4-10.5); GFR NON-AFRICAN AMERICAN > 60
--- NOTE | 2017-12-25 09:09 | PN ---
DATE: 12/25/2017 SUBJECTIVE: I saw Mr. Bonner this morning. He is a 62-year-old male, admitted with severe anemia. At the bedside this morning, patient feels significantly improved. No evidence of abdominal pain, nausea, or vomiting, or rectal bleeding. Note that the patient had an upper endoscopy yesterday, which was significant for an ulcer at the level of the Z-line, several antral erosions, evidence of gastritis were noticed. Also noted were multiple angioectasias in the area of the duodenal bulb and descending duodenum. PHYSICAL EXAMINATION: VITAL SIGNS: I reviewed this patient's vital signs. HEENT: Noncontributory. LUNGS: Decreased breath sounds, basilar. HEART: Regular rhythm. ABDOMEN: Soft. No tenderness elicited. Bowel sounds were regular. LABORATORY DATA: I reviewed this patient's laboratory data. His H and H is currently 8.05/14, this is as of 2:20 this morning. Labs are pending this morning. OVERALL ASSESSMENT: This is a 62-year-old male, admitted with anemia, found to have esophageal ulceration plus antral erosions, and duodenal angioectasias. Patient feels symptomatically improved on proton pump inhibitor therapy and has currently very little symptoms relative to day of admission. At this particular time juncture, based on patient's clinical exam results, we prefer to defer a colonoscopy evaluation, since he has improved and he had an etiology for his anemia. Patient should be on a chronic proton pump inhibitor therapy as well as practice antireflux precautions and also obtain iron supplementation on outpatient basis. Evaluation of his angioectasias in the area of the cecum and ascending colon could be performed at some later date. Note that as indicated previously these are numerous and were incompletely treated on the last endoscopic procedure in 2017, options for this patient include possible aortic valve replacement, which would eliminate these once for all and if still not controlled, possible segmental colon resection involving the cecum and ascending colon. Patient's diet should be advanced as per house staff. Rell Hernandez DO, PhD JOSE MANUEL
--- NOTE | 2017-12-25 20:46 | PN ---
DATE: 12/25/2017 SUBJECTIVE: The patient denies any chest pain or shortness of breath. PHYSICAL EXAMINATION: VITAL SIGNS: Blood pressure 163/82, heart rate 65, temperature 97.4, respirations 20. HEENT: Pale conjunctivae. CHEST: Clear. HEART: S1 and S2 regular. EXTREMITIES: No edema. LABORATORY DATA: Hemoglobin and hematocrit 7.7 and 24.5. White count and platelet count are within normal limit. Today's SMA-7 is within normal limit except for chloride of 112, carbon dioxide of 18. ASSESSMENT: 1. Severe anemia, requiring 3 units of packed red blood cells transfusion. 2. Esophageal ulcer, gastritis and duodenitis. Antral erosions, multiple nonbleeding angioectasias in the duodenum. 3. Abnormal EKG with evidence of lateral ischemic ST-T wave changes. RECOMMENDATIONS: I did review the echocardiographic study report, which revealed normal ejection fraction and sclerotic aortic valve with possible mild stenosis, mild mitral insufficiency and very mild pulmonary hypertension. Continue current medical management. No further cardiac workup is indicated at this time. Antoni Lopez MD
--- NOTE | 2017-12-25 21:30 | CP.PCM.PN ---
Subjective - Date & Time of Evaluation Date of Evaluation: 12/24/17 Time of Evaluation: 07:15 - Subjective Subjective: INTERNAL MEDICINE PROGRESS NOTE FOR DR. NELDA Chao D.O. PGY-1 Pt seen and examined at bedside this am. No acute complaints. Pt is tolerating liquid diet, ambulating well with no complaints. He denies any discomfort or recent episodes of blood per rectum. He denies fevers, chills, headache, dizziness, chest pain, palpitations, shortness of breath, nausea, vomiting, constipation, diarrhea. Objective - Vital Signs/Intake and Output Vital Signs (last 24 hours): Temp Pulse Resp BP Pulse Ox 97.4 F L 65 20 163/82 H 97 12/25/17 14:00 12/25/17 14:00 12/25/17 14:00 12/25/17 14:00 12/25/17 14:00 - Medications Medications: Current Medications Sodium Chloride (Sodium Chloride 0.9%) 1,000 mls @ 100 mls/hr IV .Q10H NAV Last Admin: 12/25/17 01:11 Dose: 100 mls/hr Pantoprazole Sodium (Protonix Inj) 40 mg IVP DAILY NAV - Labs Labs: 12/25/17 07:00 12/25/17 07:00 PT 12.5 SECONDS (9.4-12.5) 12/24/17 07:15 INR 1.09 12/24/17 07:15 APTT 20.3 Seconds (25.1-36.5) L 12/23/17 13:25 - Constitutional Appears: Well, Non-toxic, No Acute Distress - Head Exam Head Exam: ATRAUMATIC, NORMAL INSPECTION - Eye Exam Eye Exam: EOMI, Normal appearance - ENT Exam ENT Exam: Mucous Membranes Moist, Normal Exam - Neck Exam Neck Exam: absent: Meningismus - Respiratory Exam Respiratory Exam: Clear to Ausculation Bilateral, NORMAL BREATHING PATTERN - Cardiovascular Exam Cardiovascular Exam: REGULAR RHYTHM, +S1, +S2 - GI/Abdominal Exam GI & Abdominal Exam: Soft. absent: Tenderness - Extremities Exam Extremities Exam: Normal Inspection. absent: Calf Tenderness - Back Exam Back Exam: NORMAL INSPECTION - Neurological Exam Neurological Exam: Alert, Awake, Oriented x3 - Psychiatric Exam Psychiatric exam: Normal Affect, Normal Mood - Skin Skin Exam: Dry, Intact, Warm Assessment and Plan - Assessment and Plan (Free Text) Assessment: 62yo with PMH of HTN, mild aortic stenosis, prior GI bleed from AVM, and BPH who presents to ED with worsening SOB and weakness. Found to have HH 4.2, afebrile, BP stable. Pt was initially admitted to ICU and transfused 3u PRBC. Hgb has been uptrending and pt subsequently transferred to telemetry. Plan: 1. Symptomatic anemia Patient with hx of GI bleed September 2016 Hgb uptrending AVMs found on EGD/colonoscopy at that time were incompletely treated due to poor visualization GI consult. To undergo endoscopy today. F/u results/recommendations NPO diet Protonix drip 2. Hx of Pulm HTN Echo showed mild , normal EF, RSVP 56 likely secondary to tobacco abuse Cardiology consulted. Appreciate recs 3. HTN Hold BP meds per GI recs DVT/GI PPx: SCD/Protonix Case seen, examined and discussed with attending physician, Dr. Viveros
--- NOTE | 2017-12-25 21:56 | CP.PCM.PN ---
Subjective - Date & Time of Evaluation Date of Evaluation: 12/25/17 Time of Evaluation: 14:00 - Subjective Subjective: INTERNAL MEDICINE PROGRESS NOTE FOR DR. NELDA Caho D.O. PGY-1 Pt seen and examined at bedside this am. No acute complaints. No nursing events overnight. Pt underwent endoscopy yesterday, with no complaints. Pt tolerating diet well, ambulating well. He denies fevers, chills, headache, dizziness, chest pain, palpitations, shortness of breath, nausea, vomiting, constipation, diarrhea, dysuria. Objective - Vital Signs/Intake and Output Vital Signs (last 24 hours): Temp Pulse Resp BP Pulse Ox 97.4 F L 65 20 163/82 H 97 12/25/17 14:00 12/25/17 14:00 12/25/17 14:00 12/25/17 14:00 12/25/17 14:00 - Medications Medications: Current Medications Sodium Chloride (Sodium Chloride 0.9%) 1,000 mls @ 100 mls/hr IV .Q10H NAV Last Admin: 12/25/17 01:11 Dose: 100 mls/hr Pantoprazole Sodium (Protonix Inj) 40 mg IVP DAILY NAV - Labs Labs: 12/25/17 07:00 12/25/17 07:00 PT 12.5 SECONDS (9.4-12.5) 12/24/17 07:15 INR 1.09 12/24/17 07:15 APTT 20.3 Seconds (25.1-36.5) L 12/23/17 13:25 - Constitutional Appears: Well, Non-toxic, No Acute Distress - Head Exam Head Exam: NORMAL INSPECTION, NORMOCEPHALIC - Eye Exam Eye Exam: EOMI, Normal appearance - ENT Exam ENT Exam: Mucous Membranes Moist, Normal Exam - Neck Exam Neck Exam: Normal Inspection - Respiratory Exam Respiratory Exam: NORMAL BREATHING PATTERN Additional comments: course breath sounds RLL - Cardiovascular Exam Cardiovascular Exam: REGULAR RHYTHM, +S1, +S2 - GI/Abdominal Exam GI & Abdominal Exam: Soft, Normal Bowel Sounds. absent: Tenderness - Extremities Exam Extremities Exam: Normal Inspection. absent: Calf Tenderness - Back Exam Back Exam: NORMAL INSPECTION - Neurological Exam Neurological Exam: Alert, Awake, Oriented x3 - Psychiatric Exam Psychiatric exam: Normal Affect, Normal Mood - Skin Skin Exam: Dry, Intact, Warm Assessment and Plan - Assessment and Plan (Free Text) Assessment: 62yo with PMH of HTN, mild aortic stenosis, prior GI bleed from AVM, and BPH who presents to ED with worsening SOB and weakness. Found to have HH 4.2, afebrile, BP stable. Pt was initially admitted to ICU and transfused 3u PRBC. Hgb has been uptrending and pt subsequently transferred to telemetry. Pt underwent endoscopy. Plan: 1. Symptomatic anemia Hgb uptrending Pt s/p endoscopy. Results show LA grade A esophagitis. Esophageal ulcer. Gastritis/duodenitis. Antral erosions. Multiple non-bleeding angioectasias in the duodenum. Start chronic iron therapy Clear liquid diet Resume current medications Await endoscopy pathology results repeat colonoscopy given current findings Stop protonix drip. Start protonix IVP daily 2. Hx of Pulm HTN Echo showed mild , normal EF, RSVP 56 likely secondary to tobacco abuse Cardiology consulted. Appreciate recs 3. HTN Hold BP meds per GI recs DVT/GI PPx: SCD/Protonix Case seen, examined and discussed with attending physician, Dr. Viveros
[2017-12-26 07:59] LABS: BASO # 0.03 K/mm3 (0.0-2.0); BASO % 0.3 % (0.0-3.0); EOS # 0.2 (0.0-0.7); EOS % 2.4 % (1.5-5.0); GRAN # 6.88 (1.4-6.5); GRAN % 74.3 % (50.0-68.0); LYMPH # 1.2 (1.2-3.4); MEAN CELL VOLUME 75.8 fl (80.0-105.0); MEAN CORPUSCULAR HEMOGLOBIN 23.3 pg (25.0-35.0); MEAN CORPUSCULAR HGB CONC 30.8 g/dl (31.0-37.0); MONO # 0.9 (0.1-0.6); RBC 3.43 10^6/uL (3.5-6.1); RED CELL DISTRIBUTION WIDTH 18.9 % (11.5-14.5); WHITE BLOOD COUNT 9.3 10^3/ul (4.5-11.0)
[2017-12-26 08:09] VITALS: PULSE 64; RESP 20; TEMP 98.4; O2SAT 97
[2017-12-26 08:13] LABS: ALB/GLOB RATIO 1.2 (1.1-1.8); ALBUMIN 3.2 g/dL (3.0-4.8); ALT/SGPT 24 U/L (7-56); AST/SGOT 23 U/L (17-59); BLOOD UREA NITROGEN 7 mg/dL (7-21); CALCIUM 8.4 mg/dL (8.4-10.5); GFR NON-AFRICAN AMERICAN > 60
[2017-12-26] MEDS ORDERED: Ferrous Sulfate 300 mg/5 mL Liq UD PO SCH (10:00)
[2017-12-26] MEDS ORDERED: Iron Complex Polysacch 150mg Cap PO SCH (10:00)
[2017-12-26 11:01] VITALS: BP 141/68
[2017-12-26] MEDS ORDERED: Potassium Chloride 20 mEq ER Tab PO ONE (11:04)
--- NOTE | 2017-12-26 11:48 | PN ---
DATE: 12/26/2017 SUBJECTIVE: I saw Mr. Ariel Bonner this morning. He is a 62-year-old male who complains of dyspnea on exertion and severe anemia. Note, that on endoscopic evaluation, the patient had antral erosions plus an esophageal ulcer as well as multiple angiectasis in the area of the duodenal bulb and descending duodenum. At the bedside, this morning, the patient is asymptomatic. He is walking okay. No problem with swallowing. No abdominal pain. No evidence of rectal bleeding. He was advised to get better anti-reflux precautions. PHYSICAL EXAMINATION: VITAL SIGNS: I reviewed this patient's vital signs. HEENT: Noncontributory. LUNGS: Decreased breath sounds at the bases. HEART: Regular rhythm. ABDOMEN: Soft. No tenderness elicited. LABORATORY DATA: His H and H yesterday was 8.2 and 26 as of yesterday morning 7.7 and 24.7. No evidence of rectal bleeding. ASSESSMENT AND PLAN: A 62-year-old male with severe dyspnea on exertion and found to have esophageal ulceration plus antral erosions and gastritis, duodenitis. Also, angiodysplasia in the area of the duodenal bulb and descending duodenum. 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 We discussed with the hospitalist yesterday. At this point time, we will prefer to hold off on further endoscopic evaluation and not perform the colonoscopy. Patient should be discharged on proton pump inhibitors and follow anti-reflux precautions, which were explained to the patient on several occasions at bedside. If the patient needs a colonoscopy, this should be performed on an outpatient basis. He will be sent home on iron supplementation as well. As a sidenote, gastric biopsy results were positive for H pylori which contributed to the anemia. This should be treated with outpatient antibiotics by his PCP or referral GI. Rell Hernandez DO, PhD JO[facility] MANUEL
--- NOTE | 2017-12-26 13:38 | CP.PCM.DIS ---
Provider - Provider Date of Admission: 12/23/17 14:22 Attending physician: Angelic Taylor MD Consults: GI: Mary Cardio: Jessica Time Spent in preparation of Discharge (in minutes): 45 Hospital Course - Lab Results Lab Results: Micro Results 12/23/17 19:30 Nose MRSA Culture (Admit) - Final MRSA NOT DETECTED Most Recent Lab Values WBC 9.3 10^3/ul (4.5-11.0) 12/26/17 07:15 RBC 3.43 10^6/uL (3.5-6.1) L 12/26/17 07:15 Hgb 8.0 g/dL (14.0-18.0) L 12/26/17 07:15 Hct 26.0 % (42.0-52.0) L 12/26/17 07:15 MCV 75.8 fl (80.0-105.0) L 12/26/17 07:15 MCH 23.3 pg (25.0-35.0) L 12/26/17 07:15 MCHC 30.8 g/dl (31.0-37.0) L 12/26/17 07:15 RDW 18.9 % (11.5-14.5) H 12/26/17 07:15 Plt Count 252 10^3/uL (120.0-450.0) 12/26/17 07:15 MPV 10.0 fl (7.0-11.0) 12/26/17 07:15 Gran % 74.3 % (50.0-68.0) H 12/26/17 07:15 Lymph % (Auto) 13.0 % (22.0-35.0) L 12/26/17 07:15 Harmon % (Auto) 10.0 % (1.0-6.0) H 12/26/17 07:15 Eos % (Auto) 2.4 % (1.5-5.0) 12/26/17 07:15 Baso % (Auto) 0.3 % (0.0-3.0) 12/26/17 07:15 Gran # 6.88 (1.4-6.5) H 12/26/17 07:15 Lymph # (Auto) 1.2 (1.2-3.4) 12/26/17 07:15 Harmon # (Auto) 0.9 (0.1-0.6) H 12/26/17 07:15 Eos # (Auto) 0.2 (0.0-0.7) 12/26/17 07:15 Baso # (Auto) 0.03 K/mm3 (0.0-2.0) 12/26/17 07:15 PT 12.5 SECONDS (9.4-12.5) 12/24/17 07:15 INR 1.09 12/24/17 07:15 APTT 20.3 Seconds (25.1-36.5) L 12/23/17 13:25 D-Dimer, Quantitative 292 ng/mlDDU (0-243) H 12/23/17 13:25 Sodium 138 mmol/L (132-148) 12/26/17 07:15 Potassium 3.5 mmol/L (3.6-5.0) L 12/26/17 07:15 Chloride 110 mmol/L (98-107) H 12/26/17 07:15 Carbon Dioxide 20 mmol/L (21-33) L 12/26/17 07:15 Anion Gap 12 (10-20) 12/26/17 07:15 BUN 7 mg/dL (7-21) 12/26/17 07:15 Creatinine 1.1 mg/dl (0.8-1.5) 12/26/17 07:15 Est GFR ( Amer) > 60 12/26/17 07:15 Est GFR (Non-Af Amer) > 60 12/26/17 07:15 Random Glucose 96 mg/dL (70-110) 12/26/17 07:15 Calcium 8.4 mg/dL (8.4-10.5) 12/26/17 07:15 Magnesium 2.1 mg/dL (1.7-2.2) 12/23/17 13:25 Iron 18 ug/dL (45-180) L 12/23/17 13:25 TIBC 490 ug/dL (261-462) H 12/23/17 13:25 % Saturation 4 % (20-55) L 12/23/17 13:25 Ferritin 10.8 ng/mL 12/23/17 13:25 Total Bilirubin 0.5 mg/dL (0.2-1.3) 12/26/17 07:15 AST 23 U/L (17-59) 12/26/17 07:15 ALT 24 U/L (7-56) 12/26/17 07:15 Alkaline Phosphatase 104 U/L (38-126) 12/26/17 07:15 Lactate Dehydrogenase 327 U/L (333-699) L 12/23/17 13:25 Total Creatine Kinase 67 U/L (35-230) 12/23/17 13:25 Troponin I < 0.01 ng/mL 12/23/17 13:25 NT-Pro-B Natriuret Pep 6730 pg/mL (0-450) H 12/23/17 13:25 Total Protein 6.0 g/dL (5.8-8.3) 12/26/17 07:15 Albumin 3.2 g/dL (3.0-4.8) 12/26/17 07:15 Globulin 2.8 gm/dL 12/26/17 07:15 Albumin/Globulin Ratio 1.2 (1.1-1.8) 12/26/17 07:15 Blood Type A POSITIVE 12/23/17 13:25 Antibody Screen Negative 12/23/17 13:25 Crossmatch See Detail 12/23/17 13:25 BBK History Checked Patient has bt 12/23/17 13:25 - Hospital Course Hospital Course: This is a 62yo male with past medical history of HTN, Iron deficiency anemia secondary to GI bleed from AVM, BPH who came in for shortness of breath for the past few weeks. Patient reports he has been having dyspnea on exertion and has been having dark colored stool. This has happened before about 1 year ago. He also states he has had some dizziness with loss of appetite. In the ED, he was found to have Hgb of 4.6. He was admitted for this 1yr ago for similar symptoms. During this hospital stay, he was initially admitted to the ICU and transfused 3uPRBC over the course of 2 days. His Hgb showed response and had increased from 4.2 to 8.0. He was transferred to med/surg for management. He was placed on a protonix drip for treatment of GI bleed. He was given amlodipine and iron therapy in the hospital. He was evaluated by prototype carpenter due to his previous history of aortic sclerosis and to clear pt for endoscopy procedure. An echocardiogram was performed which showed normal LVEF and aortic sclerosis (see report). He was evaluated by GI and underwent an endoscopy which showed normal oropharynx, LA Grade A esophagitis, Esophageal ulcer, Gastritis/duodenitis, antral erosions, multiple non-bleeding angioectasias in the duodenum. Biopsies were taken for evaluation of H. Pylori. Pt was not actively having a GI bleed post-endoscopy. Protonix drip was subsequently stopped and patient was placed on protonix IVP daily. GI had evaluated the pt, and cleared the patient for discharge with instructions to follow up with PMD within 3-5 days and GI within 2 weeks. Pt to f/u pathology report with GI physician. Please refer to previous progress notes for further details Discharge Exam - Head Exam Head Exam: NORMAL INSPECTION, NORMOCEPHALIC - Eye Exam Eye Exam: EOMI, Normal appearance - ENT Exam ENT Exam: Mucous Membranes Moist, Normal Exam - Neck Exam Neck exam: Normal Inspection - Respiratory Exam Respiratory Exam: NORMAL BREATHING PATTERN, UNREMARKABLE - Cardiovascular Exam Cardiovascular Exam: REGULAR RHYTHM, +S1, +S2 - GI/Abdominal Exam GI & Abdominal Exam: Normal Bowel Sounds, Soft. absent: Distended, Rigid - Extremities Exam Extremities exam: normal inspection - Back Exam Back exam: NORMAL INSPECTION - Neurological Exam Neurological exam: Alert, Oriented x3 - Psychiatric Exam Psychiatric exam: Normal Affect, Normal Mood - Skin Skin Exam: Dry, Intact, Warm Discharge Plan - Discharge Medications Prescriptions: Docusate [Colace] 100 mg PO BID #60 cap Pantoprazole Sodium [Protonix] 40 mg PO DAILY #30 ect - Follow Up Plan Condition: CRITICAL Disposition: HOME/ ROUTINE Instructions: Upper GI Endoscopy, Anemia Caused by Low Iron, Adult (DC), [place] Diet, Gastritis (DC), Ulcer and Gastritis Diet Additional Instructions: Please schedule an appointment with your primary care provider, Dr. Rincon within 3-5 days. You will need to monitor your blood level with your primary care doctor. At the discretion of your primary care doctor, you may need to follow up with a radio/tv technician (blood doctor) for further evaluation of your low blood levels. Continue taking your home iron medication. Continue taking your home colace medication. Please follow up with Dr. Hernandez, wine fermenter (stomach doctor) within 1 week. Please follow up with your prototype carpenter (heart doctor) within 1-2 weeks. Take medications as directed. Please return to local emergency room if symptoms return. Referrals: Arnold Rincon [Family Provider] - Rell Hernandez DO [Staff Provider] -
--- NOTE | 2017-12-26 14:49 | PN ---
DATE: 12/26/2017 FOLLOWUP SUBJECTIVE: The patient denies any chest pain, dizziness or shortness of breath. PHYSICAL EXAMINATION: VITAL SIGNS: Blood pressure 154/73, heart rate 64, temperature 98.4, respirations 20. HEENT: Normocephalic. CHEST: Clear. HEART: S1 and S2 regular. EXTREMITIES: No edema. LABORATORY DATA: Today's hemoglobin and hematocrit 8 and 26 respectively. White count and platelet count are within normal limit. Today's SMA-7: Sodium 138, potassium 3.5, chloride 110, CO2 of 20, glucose 96, BUN 7, creatinine 1.1. ASSESSMENT: 1. Anemia secondary to gastrointestinal bleeding, status post 3 units of packed RBC transfusion. 2. Hypokalemia. 3. Esophageal ulcer, gastroduodenitis, antral erosion and multiple nonbleeding angioectasias of the duodenum. RECOMMENDATIONS: Continue current Norvasc 10 mg once a day, Protonix 40 mg intravenously once a day and Ferrex 150 mg daily. Antoni Loepz MD
== END 2017-12-26 14:41 | disposition home or self-care (01) | DRG 552 ==
LOC: ED 12:44 → ERH 14:22 → ICU 17:50 → 5RNO 12-24 17:41
PROVIDERS: ADMIT Internal Medicine; ATTEND Internal Medicine
PROC: 30233N1 Transfusion of Nonautologous Red Blood Cells into Peripheral Vein, Percutaneous Approach (ICD-10-PCS; 2017-12-23)
PROC: 0DB68ZX Excision of Stomach, Via Natural or Artificial Opening Endoscopic, Diagnostic (ICD-10-PCS; principal; 2017-12-24 10:00)
DX: K31.811 Angiodysplasia of stomach and duodenum with bleeding (principal); N17.9 Acute kidney failure, unspecified; N18.3 Chronic kidney disease, stage 3 (moderate); I35.0 Nonrheumatic aortic (valve) stenosis; E87.6 Hypokalemia; E86.0 Dehydration; K29.80 Duodenitis without bleeding; K29.50 Unspecified chronic gastritis without bleeding; B96.81 Helicobacter pylori [H. pylori] as the cause of diseases classified elsewhere; N40.0 Benign prostatic hyperplasia without lower urinary tract symptoms; I27.20 Pulmonary hypertension, unspecified; I12.9 Hypertensive chronic kidney disease with stage 1 through stage 4 chronic kidney disease, or unspecified chronic kidney disease; K22.10 Ulcer of esophagus without bleeding; D50.0 Iron deficiency anemia secondary to blood loss (chronic); K64.8 Other hemorrhoids; Z72.0 Tobacco use; Z90.79 Acquired absence of other genital organ(s)